=== PATIENT | male | born 1960 | race African-American/Black ===

== ENCOUNTER 2022-03-03 08:46 | Observation (INO) ==
--- NOTE | 2022-02-16 14:05 | History & Physical Report ---
Date of Service February 16, 2022 Assessment & Plan (1) Avascular necrosis of bone of right hip: Plan: PRE-OP Diagnosis: Right hip avascular necrosis Planned Procedure: Right total hip arthroplasty Plan: Patient is scheduled to undergo this procedure at the [facility] with a 23-hour observation admission with Dr. Carbone on February. Risks and complications of the procedure such as: Infection, bleeding, pain, scarring, nerve blood vessel damage, weakness, wound problems, stiffness, incomplete relief of symptoms, hardware failure, hardware loosening, wear, fracture, tendon or ligament injury, dislocation, leg length inequality, blood clots, Embolism, heart attack, stroke and were explained to the patient at her visit today. Informed consent to perform the procedure was obtained. Patient also understands risks of proceeding with surgical intervention during the COVID- pandemic. Currently the patient is asymptomatic. Patient will have his preoperative medical testing performed at the present which include; CBC with differential, complete metabolic panel, PT/INR, blood type and screen, urinalysis, urine culture and sensitivity, EKG, hemoglobin A1c and a nasal culture for MRSA. Patient will also need preoperative medical clearance from their primary care provider and trimmer and reinforcer. Patient states that he plans on doing therapy 2-3 times weekly at [facility]. They will make accommodations for therapists to come in for the recommended therapy. Patient will need a walker, raised toilet seat, shower chair and a hip kit and all of these items we have provided by the [facility]. During today's visit we reviewed the total hip packet as well as precautions. We discussed discharge planning from the hospital. I advised the patient that upon discharge from hospital we will prescribe a narcotic pain medication and anti-inflammatory. Patient will hold his Plavix for 5 days prior to the procedure and we will restarted on postoperative day 1. Patient will be scheduled for 2-week postoperative follow-up visit with myself on March 26 at 11:15 AM. At that visit we will Provide the patient with his rehab protocol. Patient verbalizes understanding of all information provided during today's visit. He thanks for the care that he received. If he has questions or concerns that should arise prior to his surgery, he will have medical staff at [facility] contact her clinic. This chart was completed utilizing [employer] voice recognition software. Grammatical errors, random word insertions, pronoun errors, and in complete sentences are an occasional consequence of the system. Any questions or concerns about the content, text, or information contained within the body of this dictation should be addressed directly to the physician for clarification. History of Present Illness Chief Complaint: Chief Complaint: Right hip pain Primary Care Provider: NO PCP History of Present Illness (including history relevant to procedure): This 61-year-old male inmate from [facility] presents the clinic today for his preoperative history and physical examination. Patient complains of a several year history of persistent right hip pain. Patient states that a few years ago he fell while getting out of the shower landing on his right hip. He managed this conservatively with the use of nonsteroidal agents, rest and nonweightbearing status for several weeks. Patient also states that he has had multiple surgeries on his left lower extremity from a previous injury and feels that this may be the root of his right hip issues because of compensation for the issues with his left leg. Patient denies any numbness or tingling in the right lower extremity but states that he has had a significant change in his ability to ambulate without the aid of a cane. He states that the pain wakes him up at night and seems to be worse on days when it either rains or snows. Review Of Systems: A 12 point review of systems is performed and is unremarkable except for those things stated in the HPI and past medical history. Past Medical History: Problems: Arteriosclerotic coronary artery disease Hypertension Asthma History of myocardial infarction History of coronary artery bypass graft GERD Procedure History Procedure Procedure Date Comments CABG Cardiac catheterization with stent placement Multiple surgeries on his left lower extremity Allergies and Sensitivities: Cozaar(Rash) Bactrim(Rash) Social history: Completely negative Family history: Diabetes and heart disease Current Home Meds: (Last Updated 10/15 13:58) acetaminophen (Tylenol) 500 mg PO acitretin (acitretin 10 mg oral capsule) albuterol (Albuterol (Eqv-ProAir HFA)) amLODIPine (Norvasc) 2.5 mg PO bromfenac ophthalmic (Prolensa 0.07% ophthalmic solution) ciclesonide (Alvesco HFA 80 mcg/inh inhalation aerosol) 1 puff inhaled bid clopidogrel (Plavix) 75 mg PO diclofenac topical (diclofenac 1% topical gel) 1 appl topical qid difluprednate ophthalmic (difluprednate 0.05% ophthalmic emulsion) famotidine (famotidine 20 mg oral tablet) 20 mg PO Daily gatifloxacin ophthalmic (gatifloxacin 0.5% ophthalmic solution) hydroCHLOROthiazide (HydroDIURIL) 12.5 mg PO hydroxychloroquine (Plaquenil) 200 mg PO isosorbide mononitrate (Imdur) 60 mg PO IMDUR (isosorbide mononitrate) is a SUSTAINED RELEASE tablet typically dosed daily. Do not confuse with ISORDIL (isosorbide dinitrate) commonly dosed three times daily. - Jo-Ann Rueda 10/20 09:48 lactulose metoprolol (metoprolol tartrate) 50 mg PO nitroglycerin 0.4 mg SL ranolazine (Ranexa) 500 mg PO rosuvastatin (Crestor) 40 mg PO tamSULOsin 0.4 mg PO Allergies Allergy/AdvReac Type Severity Reaction Status Date / Time losartan [From Cozaar] Allergy Unknown Verified 02/02/22 09:51 sulfamethoxazole Allergy Unknown Verified 02/02/22 09:51 [From Bactrim] trimethoprim [From Bactrim] Allergy Unknown Verified 02/02/22 09:51 red sauce AdvReac Unknown Uncoded 02/02/22 09:51 Home Medications Medication Instructions Recorded Confirmed Type acitretin 10 mg capsule 10 mg PO DAILY 03/21/18 02/02/22 History clopidogrel 75 mg tablet (Plavix) 75 mg PO QAM 03/21/18 02/02/22 History rosuvastatin 40 mg tablet 40 mg PO HS 03/21/18 02/02/22 History nitroglycerin 0.4 mg sublingual 0.4 mg sublingual Q5M PRN chest 12/10/18 02/02/22 History tablet pain ranolazine 500 mg tablet,extended 500 mg PO BID #60 tabs 12/10/18 02/02/22 History release,12 hr metoprolol tartrate 50 mg tablet 50 mg PO BID 12/20/18 02/02/22 History ciclesonide 80 mcg/actuation 1 puff inhalation BID 03/10/21 02/02/22 History aerosol inhaler (Alvesco) hydrochlorothiazide 12.5 mg tablet 12.5 mg PO DAILY 03/10/21 02/02/22 History tamsulosin 0.4 mg capsule (Flomax) 0.4 mg PO DAILY 03/10/21 02/02/22 History isosorbide mononitrate 30 mg 30 mg PO DAILY 06/03/21 02/02/22 History tablet,extended release 24 hr isosorbide mononitrate 60 mg 60 mg PO DAILY 06/03/21 02/02/22 History tablet,extended release 24 hr acetaminophen 500 mg tablet 500 mg PO TID PRN Pain 09/01/21 09/07/21 History albuterol sulfate 90 mcg/actuation 2 puff inhalation QID PRN 09/01/21 02/02/22 History aerosol inhaler Shortness Of Breath amlodipine 2.5 mg tablet 2.5 mg PO DAILY 09/01/21 02/02/22 History famotidine 20 mg tablet 20 mg PO BID 09/01/21 02/02/22 History bromfenac 0.07 % eye drops 1 drp ophthalmic (eye) DAILY 02/02/22 02/02/22 History (Prolensa) clobetasol 0.05 % topical foam 1 applic topical DAILY 02/02/22 02/02/22 History difluprednate 0.05 % eye drops 1 drp ophthalmic (eye) BID 02/02/22 02/02/22 History (Durezol) lactulose 10 gram/15 mL oral 15 ml PO BID 02/02/22 02/02/22 History solution tetrahydrozoline 0.05 % eye drops 1 drp ophthalmic (eye) BID 02/02/22 02/02/22 History (Visine) Past Med/Surg History Medical History Asthma CAD (coronary artery disease) valvular disease; moderate aortic insufficiency GERD (gastroesophageal reflux disease) Hx of glaucoma Hyperlipidemia Hypertension Inmate in [facility]al facility [facility] Lupus Myocardial Infarction Osteoarthritis Surgical History History of cardiac cath 08/19/2020 [place] [facility] no stents]\ History of coronary artery bypass graft 2002 History of heart artery stent 2002 X4 STENTS History of open reduction and internal fixation (ORIF) procedure LE History of right hip replacement Social History Smoking Status: Never smoker Second Hand Exposure: No; Hx Alcohol Use: No ([facility]) Hx Substance Use: No ([facility]) Preferred Language: Syrian Communication Ability: Effective Brick Handler Required: No Beliefs That Will Affect Care: None Current Living Situation: Other Current Living Situation Comment: [facility] Feels Safe at Home: Yes Assistive Devices: Glasses Review of Systems All systems reviewed & are unremarkable except as noted in Subjective Physical Exam Physical Exam: Physical Exam: (relevant to the procedure, including heart and lung evaluation) General: Alert and oriented x3 with proper grooming and hygiene Eyes: Pupils are equal react to light with accommodation. Extract movements are intact Throat: Deferred due to COVID-19 precautions Cardiac: Regular rate and rhythm with no murmurs or gallops appreciated Lungs: Clear to auscultation throughout with no wheezing, rales or rhonchi Abdomen: Mildly obese, nondistended, nontender with NABS Extremities: Right hip: Passive flexion is limited to about 92 degrees, external rotation to 25 degrees and internal rotation to -5 degrees. Straight leg raise test, logroll test and Stinchfield tests are all positive. Patient experiences tenderness to palpation in the groin area. He has referred pain in the area als o with passive AB and adduction of his lower extremity. He is neurovascular intact and walks with a significant antalgic gait Neuro: Cranial nerves II through XII are intact no motor or sensory deficit Skin: Normal appearance no open skin areas or discharge Results & Data ([facility]) Vital Signs (Past 12 Hours) Height: 170.5 cm weight: 91.4 kg blood pressure: 116/62 pulse: 70 temp: 97.2 degrees oxygen saturation: 98% Diagnostic Findings Studies (relevant to the procedure): x-rays done include AP pelvis false profile view and crosstable lateral of the right hip. These are compared with his prior films done back in April 2021. There is been no significant interval change. Continues to have collapse of the superior femoral head to mild injury with joint space narrowing and marginal osteophyte formation. MRI right hip: showed severe right hip osteoarthritis with osteonecrosis and a subchondral collapse of the superior right femoral head
--- NOTE | 2022-03-01 11:30 | Anesthesiology Consultation ---
Date of Service March 01, 2022 Assessment & Plan (1) Encounter for pre-operative examination: - COVID screening: Per assessment on 03/01: No known COVID-19 positive contacts or current COVID-19 related symptoms. Travel screen negative. Patient vaccinated. Inmate at [facility]. Preop Covid test 02/25 was negative. Will order Truong for AM DOS. Order placed. - Cardiology note (02/02/22): "His cardiac cath in August 2021 showed severe mary's igloo vessel CAD with patent HUGHES graft to LAD. Medical management was recommended at the time of the procedure. Most recent echo demonstrated preserved LV systolic function. Nuclear stress within the last year showed old inferior infarct with no significant reversible defects. He has chronic and stable angina with associated dyspnea. Given his known CAD with prior infarct noted on perfusion imaging, he is at at least a moderate risk for surgery. The surgical risk was discussed with him today. If patient and surgeon agree to proceed with hip arthroplasty, understanding the risks, would recommend close monitoring and avoidance of hypotension, hypertension, tachycardia, hypoxia, and significant anemia throughout the perioperative period to reduce myocardial oxygen demand and meet myocardial oxygen delivery. He can hold his Plavix for 5- 7 days prior to surgery, but he should take low dose aspirin while the Plavix is on hold due to his history of intracoronary stenting." Message sent to Gail at surgeon's office to inform surgeon of cardiology risk assessment/p erioperative recommendations. Chart Review Chart Review: Acceptable Risk for Surgery (pending evaluation AM DOS) and Patient NOT seen in Pre Admission Testing History Surgery Operation Date: 03/03/22 09:10 Proposed Procedures p Right Total Hip Arthroplasty - Philip Carbone MD Height/Weight Height: 5 ft 8 in Weight: 89.811 kg Allergies Allergy/AdvReac Type Severity Reaction Status Date / Time losartan [From Cozaar] Allergy Unknown Unknown Verified 02/25/22 12:55 sulfamethoxazole Allergy Unknown Unknown Verified 02/25/22 12:55 [From Bactrim] trimethoprim [From Bactrim] Allergy Unknown Unknown Verified 02/25/22 12:55 red sauce AdvReac Unknown Unknown Uncoded 02/25/22 12:55 Medications Home Medications Medication Instructions Recorded Confirmed Last Taken acitretin 10 mg capsule 10 mg PO QAM 03/21/18 02/25/22 09/06/21 clopidogrel 75 mg tablet (Plavix) 75 mg PO QAM 03/21/18 02/25/22 09/07/21 06:00 rosuvastatin 40 mg tablet 40 mg PO HS 03/21/18 02/25/22 09/06/21 nitroglycerin 0.4 mg sublingual 0.4 mg sublingual Q5M PRN chest 12/10/18 02/25/22 Unknown tablet pain ranolazine 500 mg tablet,extended 500 mg PO BID #60 tabs 12/10/18 02/25/22 09/06/21 release,12 hr metoprolol tartrate 50 mg tablet 50 mg PO BID 12/20/18 02/25/22 09/06/21 ciclesonide 80 mcg/actuation 1 puff inhalation BID 03/10/21 02/25/22 09/06/21 aerosol inhaler (Alvesco) hydrochlorothiazide 12.5 mg tablet 12.5 mg PO QAM 03/10/21 02/25/22 09/06/21 tamsulosin 0.4 mg capsule (Flomax) 0.4 mg PO QAM 03/10/21 02/25/22 09/06/21 isosorbide mononitrate 30 mg 30 mg PO QAM 06/03/21 02/25/22 09/06/21 tablet,extended release 24 hr isosorbide mononitrate 60 mg 60 mg PO QAM 06/03/21 02/25/22 09/06/21 tablet,extended release 24 hr albuterol sulfate 90 mcg/actuation 2 puff inhalation QID PRN 09/01/21 02/25/22 09/06/21 aerosol inhaler Shortness Of Breath amlodipine 2.5 mg tablet 2.5 mg PO QAM 09/01/21 02/25/22 09/06/21 bromfenac 0.07 % eye drops 1 drp ophthalmic (eye) DAILY 02/02/22 02/25/22 Unknown (Prolensa) clobetasol 0.05 % topical foam 1 applic topical DAILY 02/02/22 02/25/22 Unknown difluprednate 0.05 % eye drops 1 drp ophthalmic (eye) BID 02/02/22 02/25/22 Unknown (Durezol) lactulose 10 gram/15 mL oral 15 ml PO BID 02/02/22 02/25/22 Unknown solution tetrahydrozoline 0.05 % eye drops 1 drp ophthalmic (eye) BID 02/02/22 02/25/22 Unknown (Visine) acetaminophen 300 mg-codeine 30 mg 1 tab PO BID 02/25/22 02/25/22 Unknown tablet hydroxychloroquine 200 mg tablet 200 mg PO BID 02/25/22 02/25/22 Unknown Past Medical History Medical History Asthma CAD (coronary artery disease) Hx remote stents/CABG GERD (gastroesophageal reflux disease) Hx of glaucoma Hyperlipidemia Hypertension Inmate in correctional facility [facility] Lupus Myocardial Infarction multiple (2002/2004?/2010/2015) Per cardiology note: "first NV in 2002 while living in [place]. He cannot recall what hospital he went to. In 2004 to 2006 he had another myocardial infarction in [place] and underwent CABG x 2 and PCI x 2. In 2010 while being arrested, he had another myocardial infarction and went to [facility] and underwent PCI. In 2015 while incarcerated in [facility], he went to [facility] for another myocardial infarction and underwent PCI" Osteoarthritis Past Family History Family History Other Family history unknown Past Surgical History Surgical History History of bilateral cataract extraction History of cardiac cath Multiple, most recent [place]2021 ([place]) History of coronary artery bypass graft ~2004 History of heart artery stent 2002 x 4 STENTS History of open reduction and internal fixation (ORIF) procedure LE History of right hip replacement Social History Smoking Status: Unknown if ever smoked Do You Dip or Chew Tobacco: No Hx Alcohol Use: No (unknown, incarcerated at [facility]) Hx Substance Use: No (unknown, incarcerated at [facility]) substance use type: does not use Testing Laboratory Results 02/09/22 WBC 5.88 H/H 14.1/42.7 PLATELETS 103 (chronic hx of thrombocytopenia with baseline platelets low 100s) SODIUM 138 POTASSIUM 4.1 CHLORIDE 102 CO2 28 BUN 14 CREATININE 1.06 GLUCOSE 59 PT 11.6 INR 1.05 UA negative (urine culture no growth) Electrocardiogram Date: 02/12/22 Sinus bradycardia 57 bpm. Possible LAE. Nonspecific ST/T wave abnormality. unconfirmed report. Chest X-Ray Date: 02/09/22 No radiographic evidence of acute pulmonary disease. Cardiomegaly. Echocardiogram Date: 05/05/21 EF 60%. Impaired LV relaxation with normal filling pressures. Basal inferior wall appears akinetic. The inferior lateral wall may be abnormal, it is not optimally visualized. Calcified aortic valve with normal opening. Moderate AR. Mild TR. Mild pulmonary hypertension. Estimated PASP 40 mmHg. Stress Test Date: 03/05/21 SUMMARY: 1. Negative myocardial perfusion study for high-risk Lexiscan induced ischemia. 2. Inferior infarct with a small amount of radha-infarct ischemia (SDS 3). 3. Normal LV size. LVEF 38 % with inferior/inferoseptal hypokinesis. 4. Non-diagnostic stress ECG due to inability to reach target HR with Lexiscan. Cardiac Catheterization Date: 08/19/21 Findings:the left main coronary was normal in size and caliber without significant obstructive disease left anterior descending: Left anterior descending was known to be occluded in its ostium. It did not fill in an antegrade fashion. It did fill via the HUGHES graft. Distal to the HUGHES graft there was luminal irregularities but no obstr uctive lesions. The proximal portion of the LAD was heavily diseased. It produced a large 1st diagonal branch, a medium 2nd diagonal branch and a small 3rd diagonal branch prior to anastomosis of the HUGHES graft. There was a discrete 70 percent stenosis at the site of origin of the 2nd diagonal. There was additional nonobstructive disease in the proximal portion of this vessel. Left circumflex: Left circumflex filled in an antegrade fashion. There was a widely patent stent in its midportion just distal to om 1. there was a medium- sized OM1 with some nonobstructive ostial disease. There was a small OM 2 and a large OM3 and ongoing AV groove vessel. There were luminal regularities and some nonobstructive lesions in this portion of the vessel. right coronary artery: Known to be occluded. Not Engaged during today's study. hughes to LAD: Widely patent at its origin body and anastomosis. Somewhat tortuous in its course. *Medical management recommended per cardio*
[~2022-03-03 08:46] MED LIST: ACETAMINOPHEN 500 MG TAB PO SCH; BUPIVACAINE 0.5 % 5 MG/1 ML PF 10ML VIAL ONE; FAMOTIDINE 20 MG TAB PO SCH; LR 500ML BOLUS, THEN 15ML/HR IV SCH; LR 60ML/HR IV SCH; ROPIVACAINE 0.5% HCL/PF 150 MG, BUPIVACAINE 0.75% MPF 20 ML, EPINEPHrine 0.15 MG, Ketor... INFIL SCH; Scopolamine 1 MG TDSY TD SCH; TRANEXAMIC ACID 1,000 MG **IV Intra-op IV SCH; TRANEXAMIC ACID 1,000 MG **IV Pre-op IV SCH; ceFAZolin 2000MG 2,000 MG/15 ML SYR IV SCH; dexAMETHasone 4 MG TAB PO SCH; traMADol HCL 50 MG TABLET PO SCH
[2022-03-03] MEDS ORDERED: fentaNYL citrate 100 MCG/2 ML VIAL ONE (10:01)
[2022-03-03] MEDS ORDERED: PROPOFOL IV EMULSION 10 MG/ML 20 ML VIAL IV ONE ×2 (10:01→11:30)
[2022-03-03] MEDS ORDERED: MIDAZOLAM HCL 1 MG/ML 2ML VIAL ONE (10:01)
--- NOTE | 2022-03-03 10:27 | History & Physical Bridge Note ---
Date of Service March 03, 2022 History & Physical Bridge Note I have examined the patient, reviewed the History & Physical and in the interval since the performance of the History & Physical I have noted the following changes of clinical significance: no changes noted
[2022-03-03] MEDS ORDERED: ORTHO JOINT ANESTHETIC ONE (10:35)
[2022-03-03] MEDS ORDERED: fentaNYL citrate 100 MCG/2 ML VIAL IV PRN (10:53)
[2022-03-03] MEDS ORDERED: ATROPINE SULFATE 0.1 MG/ML 10ML SYR IV PRN (10:53)
[2022-03-03] MEDS ORDERED: ePHEDrine sulfate 50 MG/ML AMP IV PRN (10:53)
[2022-03-03] MEDS ORDERED: HYDROmorphone INJ 2 MG/ML SYR/VIAL IV PRN (10:53)
[2022-03-03] MEDS ORDERED: METOCLOPRAMIDE HCL INJ 5 MG/ML 2 ML VIAL IV PRN (12:37)
[2022-03-03] MEDS ORDERED: MAGNESIUM HYDROXIDE SUSP 30 ML UDC PO PRN (12:37)
[2022-03-03] MEDS ORDERED: TAMSULOSIN HCL 0.4 MG CAP PO PRN (12:37)
[2022-03-03] MEDS ORDERED: bisacodyL 10 MG SUPP PR PRN (12:37)
[2022-03-03] MEDS ORDERED: ALUMINUM/MAGNESIUM SUSP 30 ML UDC PO PRN (12:37)
[2022-03-03] MEDS ORDERED: ONDANSETRON INJ 2 MG/ML 2 ML VIAL IV PRN (12:37)
[2022-03-03] MEDS ORDERED: oxyCODONE HCL IR 5 MG TAB (IMMEDIATE RELEASE) PO PRN (12:37)
[2022-03-03] MEDS ORDERED: NALOXONE HCL 0.4 MG/1 ML VIAL/CARP IV PRN (12:37)
[2022-03-03] MEDS ORDERED: diphenhydrAMINE 50 MG/ML VIAL IV PRN (12:37)
--- NOTE | 2022-03-03 12:37 | Operative Report ---
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 No fellow present. Please see Dr. Carbone procedure note for specifics of the case. I attest to the content of the Intraoperative Record and any orders documented therein. Any exceptions are noted below.
[2022-03-03] MEDS ORDERED: NITROGLYCERIN SL 0.4 MG/TAB TAB SL PRN (12:41)
[2022-03-03] MEDS ORDERED: ALBUTEROL HFA 8 GM INHALER INH PRN (12:41)
--- NOTE | 2022-03-03 12:45 | Operative Report ---
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 No resident or fellow was available to assist. Estimated Blood Loss 150 Findings Consistent with Post-Op Diagnosis Specimens Right femoral head Anesthesia Type Spinal MAC Complications none Disposition Disposition: Recovery Room Indications 61-year-old male, inmate, with right hip pain refractory to conservative management. X-rays demonstrate [id number] arthritis with appearance of aseptic osteonecrosis of the femoral head. Clinically he is got shortening of his right leg relative to the left. I had a long discussion with him about the risks and benefits of surgery, alternatives, and expected outcomes. After reviewing all these he elected to proceed with surgery. All questions were answered. Informed consent was signed. Description of Procedure Patient was identified in the preoperative holding area and the surgical site, right hip, was marked. A spinal anesthetic was placed, then the patient was brought back to the main operating room, placed in the operating table and moved into the lateral decubitus position. Axillary roll was placed. All bony prominences were padded. Perioperative antibiotics and tranexamic acid 1 gram IV were administered. Operative extremity was prepped and draped in the normal sterile fashion. Prior to incision a multidisciplinary timeout was called. All in the room were in agreement. We began by making an incision for a posterior approach to the hip. We dissected down through subcutaneous tissues to the level of the fascia. The fascia was incised in line with the incision. Charnley bow was placed. The trochanteric bursa was excised. The piriformis and short external rotators were dissected off the posterior aspect of the hip. A box cut was made in the capsule. The femoral head was dislocated. The femoral neck cut was made at our preoperative template. The acetabulum was then exposed. The labrum was sharply excised. Contents of the cotyloid fossa were removed with electrocautery. We then began reaming at a size 8 mm less than our preoperative template. We reamed up by 1 [address] the way up to a size 56 mm cup. This gave us good bleeding cancellus bone circumferentially. The acetabulum was then irrigated out and dried. The real Powell Gription cup was then impacted down into position with 45 degrees of lateral opening and 25 degrees of anteversion. A single cancellous bone screw was placed up into the ilium. Excellent fixation was obtained. A trial liner for a 36 mm femoral head was then placed. Next we turned our attention to the femur. The lateral neck was removed with a box osteotome. Intramedullary guide was used followed by the lateralizing reamer. We then reamed up to a size 4 [place] stem. We then broached all the way up to a size 3. We began trialing with a standard offset neck and a +1.5 head. Hip was reduced. Leg lengths were symmetric. The hip was stable in extension and external rotation, and stable in the sleeper position. At 90 degrees of hip flexion the hip could be internally rotated 45 degrees before levering out of the cup. I was very happy with the stability exam. Therefore the hip was dislocated and the femoral trial was removed. The acetabulum was re-exposed, and the trial liner was removed. An Altrx polyethylene liner for a 36 mm femoral head was then impacted into the shell. The locking mechanism was checked to ensure that it had engaged which it had. The femur was re-exposed. The femoral canal was irrigated and dried. The real size 3 standard offset [place] femoral stem was opened up. This was impacted down into position. It sat at the same level as the femoral trial. Therefore the 36 mm ceramic femoral head with a +1.5 mm offset was opened up and gently impacted down onto the trunnion. The hip was atraumatically reduced. Another 1 gram of IV tranexamic acid was started prior to closure. The wound was irrigated out with sterile Betadine solution. The periarticular injection cocktail was then placed. The short external rotators, piriformis, and posterior capsule were repaired through drill holes in the greater trochanter using #2 Vicryl. The fascia was run with a looped #1 PDS. The subcutaneous layer was closed with #1 PDS. The dermal layer was closed with 2-0 Vicryl. Zip line was used for the skin followed by a Silverlon dressing. A compressive dressing was then placed. The patient was then rolled supine. Leg lengths were rechecked and were symmetric. An abduction pillow was placed. Sedation was lifted and the patient was transferred to recovery room in stable condition. Summary of implants: Depuy Powell Gription Acetabular Shell Sector Cup, 56 mm outer diameter [place] Cancellous bone screw, 6.5 x 40 mm [place] hole eliminator Powell Altrx Polyethylene Acetabular Liner, Neutral, with a 36 mm inner diameter DePuy [place] Femoral stem with [place], 12/14 taper, size 3 standard offset 36 mm ceramic femoral head with +1.5 offset Postoperative course: Patient will be admitted to the hospital from the recovery room. Patient will be weightbearing as tolerated with posterior hip precautions. Aspirin for DVT prophylaxis I attest to the content of the Intraoperative Record and any orders documented therein. Any exceptions are noted below.
--- NOTE | 2022-03-03 13:17 | Anesthesiology Progress Note ---
Date of Service March 03, 2022 Anesthesia Post Procedure Vital Signs Vital Signs: Temp Pulse Pulse Resp BP Pulse Ox O2 Del Method 03/03/22 13:05 36.1 C L 50 L 12 138/68 100 Oxymask 03/03/22 12:55 51 L 12 130/68 100 Oxymask 03/03/22 12:45 50 L 12 125/69 100 Oxymask 03/03/22 13:15 50 L 13 133/75 99 Room Air 03/03/22 12:36 36.4 C L 54 L 12 106/66 100 Oxymask 03/03/22 09:05 36.7 C 64 20 154/80 H 99 Room Air O2 Flow Rate 03/03/22 13:05 2 03/03/22 12:55 2 03/03/22 12:45 4 03/03/22 13:15 03/03/22 12:36 6 03/03/22 09:05 Transfer of Care Handoff Completed per policy Notes Mental Status: alert / awake / arousable and participated in evaluation Nausea / Vomiting: adequately controlled Pain: adequately controlled Airway Patency, RR, SpO2: stable & adequate BP & HR: stable & adequate Hydration State: stable & adequate Neuraxial Anesthesia: was administered and sensory block is resolving Anesthetic Complications: no major complications apparent and Pt Satisfied with anesthetic care
--- NOTE | 2022-03-03 13:29 | XRay Report ---
XR pelvis 1-2V routine CLINICAL HISTORY: In PACU - Post Surgical TECHNIQUE: A single frontal view of the pelvis was obtained. Comparison: Comparison is made to pelvis radiograph 02/15/2022 FINDINGS: Patient is status post total hip arthroplasty with expected postsurgical changes including soft tissu e swelling, and subcutaneous emphysema. No periarticular lucency or hardware fracture is seen. Degene rative changes are seen in the left hip joint and lumbar spine. Previously noted serpiginous appearin g density in the femoral head is less well seen on today's exam. IMPRESSION: Expected postoperative appearance status post placement of total hip arthroplasty. ACT 112: Negative or not required by law. Electronically signed by: Emanuel Reese M.D. 03/03/2022 1:28 PM
[2022-03-03] MEDS: SODIUM CHLORIDE 0.9% 1000ML 1,000 ML IV SCH ×2 (15:00→23:48)
[2022-03-03] MEDS: ACETAMINOPHEN 500 MG TAB PO SCH ×2 (15:04→21:29)
[2022-03-03] MEDS: KETOROLAC TROMETHAMINE 15 MG/ML VIAL IV SCH ×2 (15:08→19:53)
[2022-03-03] MEDS: [UNRECOGNIZED DRUG - OTHER] SCH ×2 (16:19→23:43)
[2022-03-03] MEDS: Scopolamine CHECK PATCH PLACEMENT SCH ×2 (16:20→23:48)
[2022-03-03] MEDS: ceFAZolin 2000MG 2,000 MG/15 ML SYR IV SCH (18:16)
[2022-03-03] MEDS ORDERED: TRANEXAMIC ACID / 0.7% NACL 1,000 MG/100 ML BAG IV SCH (18:45)
[2022-03-03] MEDS: HYDROXYCHLOROQUINE SULFATE 200 MG TAB PO SCH (20:26)
[2022-03-03] MEDS: RANOLAZINE 500 MG ER TAB PO SCH (20:26)
[2022-03-03] MEDS: LACTULOSE SYRUP 10 GM/15 ML BTL 960 ML PO SCH (20:27)
[2022-03-03] MEDS: DOCUSATE SODIUM 100 MG CAP PO SCH (20:27)
[2022-03-03] MEDS: METOPROLOL TARTRATE 50 MG TAB PO SCH (20:28)
[2022-03-03] MEDS ORDERED: SENNA 8.6 MG TAB PO SCH (21:00)
[2022-03-03] MEDS ORDERED: ROSUVASTATIN CALCIUM 20 MG TAB PO SCH (21:00)
[2022-03-03] MEDS ORDERED: ACETAMINOPHEN W/CODEINE #3 1 TAB PO SCH (21:00)
[2022-03-03] MEDS ORDERED: ARTIFICIAL TEARS OP SCH (21:00)
[2022-03-04] MEDS: KETOROLAC TROMETHAMINE 15 MG/ML VIAL IV SCH ×2 (02:17→08:15)
[2022-03-04] MEDS: ceFAZolin 2000MG 2,000 MG/15 ML SYR IV SCH (02:17)
[2022-03-04] MEDS: ACETAMINOPHEN 500 MG TAB PO SCH (05:41)
[2022-03-04 07:02] LABS: BUN Creatinine Ratio 16.8 (10-20); Calcium 8.4 mg/dl (8.5-10.1); Creatinine Clr Calc Pharmacy 83.6 ml/min; Est GFR (African American) 92.6 ml/min; Est GFR (Non-African American) 79.9 ml/min
[2022-03-04 07:13] LABS: Hematocrit (blood only) 38.7 % (40.1-51.0); Hemoglobin 13.5 g/dl (14.0-18.0); Mean Corpuscular Hgb Conc 34.9 g/dL (32.0-36.0); Mean Platelet Volume 11.5 fL (9.4-12.4); Platelet Count 80 K/uL (130-400); RDW Coefficient of Variation 14.5 % (11.5-14.5); RDW Standard Deviation 46.5 fL (36.4-46.3); Red Blood Count 4.35 M/uL (4.63-6.08); White Blood Count 10.04 K/ul (4.8-10.8)
[2022-03-04 07:26] LABS: Basophils # (auto) 0.01 K/uL (0-0.2); Basophils % (auto) 0.1 %; Immature Granulocytes # (auto) 0.02 K/uL (0.00-0.02); Immature Granulocytes % (auto) 0.2 %; Lymphocytes # (auto) 1.11 K/uL (1.2-3.4); Lymphocytes % (auto) 11.1 %; Monocytes # (auto) 0.55 K/uL (0.24-0.82); Monocytes % (auto) 5.5 %; Neutrophils # (auto) 8.35 K/uL (1.4-6.5); Neutrophils % (auto) 83.1 %; Platelet Estimate Decreased (Normal); Poikilocytosis Present; Toxic Granulation 1+; Toxic Vacuolation 1+
[2022-03-04] MEDS ORDERED: dexAMETHasone 4 MG TAB PO SCH (08:00)
[2022-03-04] MEDS: [UNRECOGNIZED DRUG - OTHER] SCH (08:11)
[2022-03-04] MEDS: METOPROLOL TARTRATE 50 MG TAB PO SCH (08:13)
[2022-03-04] MEDS: HYDROXYCHLOROQUINE SULFATE 200 MG TAB PO SCH (08:13)
[2022-03-04] MEDS: RANOLAZINE 500 MG ER TAB PO SCH (08:13)
[2022-03-04] MEDS: DOCUSATE SODIUM 100 MG CAP PO SCH (08:13)
[2022-03-04] MEDS: Scopolamine CHECK PATCH PLACEMENT SCH (08:23)
[2022-03-04] MEDS ORDERED: ISOSORBIDE MONO EXTENDED REL 60 MG TABCR PO SCH (09:00)
[2022-03-04] MEDS ORDERED: ISOSORBIDE MONO EXTENDED REL 30 MG TABCR PO SCH (09:00)
[2022-03-04] MEDS ORDERED: MULTIVITAMIN TAB PO SCH (09:00)
[2022-03-04] MEDS ORDERED: TAMSULOSIN HCL 0.4 MG CAP PO SCH (09:00)
[2022-03-04] MEDS ORDERED: CLOPIDOGREL BISULFATE 75 MG TAB PO SCH (09:00)
[2022-03-04] MEDS ORDERED: FLUTICASONE FUROATE 100MCG 14 PUFFS/INHALER INH SCH (09:00)
[2022-03-04] MEDS ORDERED: hydroCHLOROthiazide 25 MG TAB PO SCH (09:00)
[2022-03-04] MEDS ORDERED: amLODIPine BESYLATE 5 MG TAB PO SCH (09:00)
[2022-03-04] MEDS: LACTULOSE SYRUP 10 GM/15 ML BTL 960 ML PO SCH (09:08)
--- NOTE | 2022-03-04 10:21 | Orthopedic Progress Note ---
Date of Service March 04, 2022 Assessment & Plan (1) S/P total hip arthroplasty: Plan: Total hip precautions reviewed Weightbearing as tolerated with walker assistance PT/OT Ice with easy wrap Keep Silverlon dressing in place until follow-up Abduction pillow use for 6 weeks postoperatively Pain control with p.o. medication DVT prophylaxis with Plavix and IRMA stockings Plan is for possible discharge to [facility] for rehab due to in availability of [facility] Follow-up with [facility] orthopedics as previously scheduled With questions contact our clinic at [phone] Admission and Anticipated Discharge Date Admission Date: March 03, 2022 Subjective This 61-year-old inmate from [facility] is day 1 status post right total hip arthroplasty. Patient states he is doing very well. Patient's guardians are concerned about him being discharged back to the sn[facility] due to in availability of beds in the [facility] because of recent COVID outbreak. He states that in the past they have had inmates go to [facility] for rehab and they feel that this may be his best option. Patient states that he is open to this if necessary. He states in regards to his hip it is doing very well. He states his pain is very minimal and describes it as an ache. He denies chest pain, shortness of breath, fever, chills,, lethargy or numbness or tingling in his right lower extremity. Review of Systems Review of Systems: All systems reviewed & are unremarkable except as noted in Subjective Physical Exam Physical Exam: Right hip: Silverlon dressing is clean dry and intact. Patient is able to easily perform a straight leg raise test and actively dorsi and plantarflex foot. Quad strength is 3+ out of 5. Patient tolerates light passive hip flexion to 90 degrees and only has a twinge of pain with light passive internal or external rotation. Patient is neurovascularly intact in the right lower extremity. Results & Data ([facility]) Vital Signs (Past 12 Hours) Vital Signs Temp Pulse Resp BP Pulse Ox O2 Del Method 03/04/22 07:57 36.7 C 60 16 146/74 H 97 Room Air 03/04/22 03:30 36.6 C 59 L 18 156/78 H 95 Diagnostic Findings Laboratory Results WBC 10.04 K/ul (4.8-10.8) 03/04/22 06:22 RBC 4.35 M/uL (4.63-6.08) L 03/04/22 06: Hgb 13.5 g/dl (14.0-18.0) L 03/04/22 06: Hct 38.7 % (40.1-51.0) L 03/04/22 06: MCV 89.0 fL (80.0-100.0) 03/04/22 06: MCH 31.0 pg (25.0-34.0) 03/04/22 06: MCHC 34.9 g/dL (32.0-36.0) 03/04/22: RDW Std Deviation 46.5 fL (36.4-46.3) H 03/04/22: RDW Coeff of Ifeanyi 14.5 % (11.5-14.5) 03/04/22 06: Plt Count 80 K/uL (130-400) L 03/04/22: MPV 11.5 fL (9.4-12.4) 03/04/22 06: Immature Gran % (Auto) 0.2 % 03/04/22 06: Neut % (Auto) 83.1 % 03/04/22 06: Lymph % (Auto) 11.1 % 03/04/22: Ferry % (Auto) 5.5 % 03/04/22: Eos % (Auto) 0.0 % 03/04/22: Baso % (Auto) 0.1 % 03/04/22: Neut # (Auto) 8.35 K/uL (1.4-6.5) H 03/04/22: Lymph # (Auto) 1.11 K/uL (1.2-3.4) L 03/04/22: Ferry # (Auto) 0.55 K/uL (0.24-0.82) 03/04/22: Eos # (Auto) 0.00 K/uL (0-0.50) 03/04/22 06: Baso # (Auto) 0.01 K/uL (0-0.2) 03/04/22 06: Immature Gran # (Auto) 0.02 K/uL (0.00-0.02) 03/04/22 06:22 Toxic Granulation 1+ 03/04/22 06:22 Toxic Vacuolation 1+ 03/04/22 06:22 Platelet Estimate Decreased (Normal) L 03/04/22 06:22 Poikilocytosis Present 03/04/22 06:22 Sodium 137 mmol/L (136-145) 03/04/22 06:22 Potassium 4.0 mmol/L (3.5-5.1) 03/04/22 06:22 Chloride 109 mmol/L (98-107) H 03/04/22 06:22 Carbon Dioxide 24 mmol/L (21-32) 03/04/22 06:22 Anion Gap 4 (3-11) 03/04/22 06:22 BUN 17 mg/dl (6-23) 03/04/22 06:22 Creatinine 1.01 mg/dl (0.6-1.4) 03/04/22 06:22 Est Cr Clr Drug Dosing 83.6 ml/min 03/04/22 06:22 Est GFR ( Amer) 92.6 ml/min 03/04/22 06:22 Est GFR (Non-Af Amer) 79.9 ml/min 03/04/22 06:22 BUN/Creatinine Ratio 16.8 (10-20) 03/04/22 06:22 Glucose 124 mg/dl (70-99(Fasting)) H 03/04/22 06:22 Calcium 8.4 mg/dl (8.5-10.1) L 03/04/22 06:22 SARS-CoV-2, RNA, NAAT NEGATIVE (NEGATIVE) 03/03/22 Unknown Blood Type A Positive 03/03/22 09:03 Antibody Screen NEGATIVE 03/03/22 09:03 Impressions Pelvis X-Ray 03/03/22 12:37 XR pelvis 1-2V routine CLINICAL HISTORY: In PACU - Post Surgical TECHNIQUE: A single frontal view of the pelvis was obtained. Comparison: Comparison is made to pelvis radiograph 02/15/2022 FINDINGS: Patient is status post total hip arthroplasty with expected postsurgical changes including soft tissue swelling, and subcutaneous emphysema. No periarticular lucency or hardware fracture is seen. Degenerative changes are seen in the left hip joint and lumbar spine. Previously noted serpiginous appearing density in the femoral head is less well seen on today's exam. IMPRESSION: Expected postoperative appearance status post placement of total hip ar throplasty. ACT 112: Negative or not required by law. Electronically signed by: Emanuel Reees M.D. 03/03/2022 1:28 PM
--- NOTE | 2022-03-04 10:38 | Discharge Summary ---
Date of Service March 04, 2022 Admission HPI Per Admitting Provider History of Present Illness (including history relevant to procedure): This 61-year-old male inmate from [facility] presents the clinic today for his preoperative history and physical examination. Patient complains of a several year history of persistent right hip pain. Patient states that a few years ago he fell while getting out of the shower landing on his right hip. He managed this conservatively with the use of nonsteroidal agents, rest and nonweightbearing status for several weeks. Patient also states that he has had multiple surgeries on his left lower extremity from a previous injury and feels that this may be the root of his right hip issues because of compensation for the issues with his left leg. Patient denies any numbness or tingling in the right lower extremity but states that he has had a significant change in his ability to ambulate without the aid of a cane. He states that the pain wakes him up at night and seems to be worse on days when it either rains or snows. Review Of Systems: A 12 point review of systems is performed and is unremarkable except for those things stated in the HPI and past medical history. Past Medical History: Problems: Arteriosclerotic coronary artery disease Hypertension Asthma History of myocardial infarction History of coronary artery bypass graft GERD Procedure History Procedure Procedure Date Comments CABG Cardiac catheterization with stent placement Multiple surgeries on his left lower extremity Allergies and Sensitivities: Cozaar(Rash) Bactrim(Rash) Social history: Completely negative Family history: Diabetes and heart disease Current Home Meds: (Last Updated 10/15 13:58) acetaminophen (Tylenol) 500 mg PO acitretin (acitretin 10 mg oral capsule) albuterol (Albuterol (Eqv-ProAir HFA)) amLODIPine (Norvasc) 2.5 mg PO bromfenac ophthalmic (Prolensa 0.07% ophthalmic solution) ciclesonide (Alvesco HFA 80 mcg/inh inhalation aerosol) 1 puff inhaled bid clopidogrel (Plavix) 75 mg PO diclofenac topical (diclofenac 1% topical gel) 1 appl topical qid difluprednate ophthalmic (difluprednate 0.05% ophthalmic emulsion) famotidine (famotidine 20 mg oral tablet) 20 mg PO Daily gatifloxacin ophthalmic (gatifloxacin 0.5% ophthalmic solution) hydroCHLOROthiazide (HydroDIURIL) 12.5 mg PO hydroxychloroquine (Plaquenil) 200 mg PO isosorbide mononitrate (Imdur) 60 mg PO IMDUR (isosorbide mononitrate) is a SUSTAINED RELEASE tablet typically dosed daily. Do not confuse with ISORDIL (isosorbide dinitrate) commonly dosed three times daily. Christopher Rueda 10/20 09:48 lactulose metoprolol (metoprolol tartrate) 50 mg PO nitroglycerin 0.4 mg SL ranolazine (Ranexa) 500 mg PO rosuvastatin (Crestor) 40 mg PO tamSULOsin 0.4 mg PO Admission Exam Per Admitting Provider Physical Exam: (relevant to the procedure, including heart and lung evaluation) General: Alert and oriented x3 with proper grooming and hygiene Eyes: Pupils are equal react to light with accommodation. Extract movements are intact Throat: Deferred due to COVID-19 precautions Cardiac: Regular rate and rhythm with no murmurs or gallops appreciated Lungs: Clear to auscultation throughout with no wheezing, rales or rhonchi Abdomen: Mildly obese, nondistended, nontender with NABS Extremities: Right hip: Passive flexion is limited to about 92 degrees, external rotation to 25 degrees and internal rotation to -5 degrees. Straight leg raise test, logroll test and Stinchfield tests are all positive. Patient experiences tenderness to palpation in the groin area. He has referred pain in the area also with passive AB and adduction of his lower extremity. He is neurovascular intact and walks with a significant antalgic gait Neuro: Cranial nerves II through XII are intact no motor or sensory deficit Skin: Normal appearance no open skin areas or discharge Principal Diagnosis Right hip osteoarthritis Discharge Exam Right hip: Silverlon dressing is clean dry and intact. Patient is able to easily perform a straight leg raise test and actively dorsi and plantarflex foot. Quad strength is 3+ out of 5. Patient tolerates light passive hip flexion to 90 degrees and only has a twinge of pain with light passive internal or external rotation. Patient is neurovascularly intact in the right lower extremity. Discharge Data Allergies Allergy/AdvReac Type Severity Reaction Status Date / Time losartan [From Cozaar] Allergy Unknown Unknown Verified 03/03/22 09:13 sulfamethoxazole Allergy Unknown Unknown Verified 03/03/22 09:13 [From Bactrim] trimethoprim [From Bactrim] Allergy Unknown Unknown Verified 03/03/22 09:13 Procedures Performed Operation Date: 03/03/22 11:20 Actual Procedures p Right Total Hip Arthroplasty, Uncemented(Right) - Philip Carbone MD Hospital Course (1) S/P total hip arthroplasty: Patient had essentially unremarkable overnight stay following right total hip arthroplasty. Spoke with patient's guards in the state that the [facility] the half-way is filled with COVID patients. They are recommending that patients be discharged to [facility] for inpatient rehab for least 2 weeks. They states they have had inmates go there several times in the past with issue. Patient is agreeable to do this. He will follow-up in our clinic as scheduled for his 2-week postop visit. Total hip precautions reviewed Weightbearing as tolerated with walker assistance PT/OT Ice with easy wrap Keep Silverlon dressing in place until follow-up Abduction pillow use for 6 weeks postoperatively Pain control with p.o. 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 Activity: As commented below Lifting: None Bathing: Keep incision dry Bathing Comment: May shower tomorrow Sexual Activity: Wait until after follow-up appointment Exercise/Sports: Wait until after follow-up appointment Weightbearing: Right weightbearing Weightbearing Comment: as tolerated with walker assistance Non-emergency contact: Surgeon Call non-emergency contact if: you have any medication questions, your pain is not controlled, your temperature is above 101.5 and your wound pain has increased Follow-up/Referrals: Yared WYNN [Primary Care Provider] - Diet: Heart Healthy Addtl Attending Provider Instructions: Post-operative Instructions Dear Patient and Family/Friends, Before you are discharged from the hospital, it is important to know what to expect when you get home after surgery. To that end, we have created this sheet of discharge instructions which covers many commonly asked questions. Make sure you go through this sheet in its entirety with your nurse before you are discharged. Please note that we will go over the specifics of your surgery and recovery when you return for your first post-operative visit. Sincerely, Dr. Carbone Medications 1. Resume your daily Plavix for blood clot prevention 2. Oxycodone 5 mg tablet: Take 1-2 tabs every 4-6 hours as needed for pain. A prescription was sent for this medication. 3. Naproxen 500 mg tablet, take 1 tab twice daily for pain and inflammation relief for 30 days postoperatively. A prescription will be sent. 4. Extra strength Tylenol 500 mg tablet: Take 2 tabs every 6-8 hours for additional supplemental pain control. Pain Expect to be in a fair amount of pain after surgery. Remember, our goal is not to eliminate your pain, but to make it tolerable. It is a good idea to stay ahead of your pain by taking the medications you were prescribed once you get home. Typically, the pain starts improving 3-7 days after surgery. You should start weaning off the narcotic pain medication (oxycodone, hydrocodone, hydromorphone, morphine) as soon as your pain improves. Please call our office if your pain is not adequately controlled. Ice Ice your operative site at least 5 times a day for 15-30 minutes at a time. Make sure you have a thin cloth between the ice or cooling unit and your skin to prevent brown bite. This is especially important if you received a nerve block. Continue icing your operative site for the first 5-7 days after surgery, then as needed. Diet/Nausea/Vomiting Start by drinking clear liquids and eating crackers. If you can tolerate this, then you may resume your normal diet. If you feel nauseated or vomit, take Zofran/ondansetron (if prescribed). Please call our office if you have intractable nausea or vomiting, or, if after hours, you may go to the Emergency Room for help. Constipation Constipation is a common side effect of narcotic pain medication. If you have not had a bowel movement within 2 days after surgery, we recommend purchasing an over the counter laxative such as Milk of Magnesia, Dulcolax, or Miralax from a local pharmacy, and taking it as instructed. Call our clinic if any questions. Nerve block The anesthesia team sometimes places a nerve block to help with post-operative pain control. This results in significant numbness and inability to move the extremity. The nerve block usually wears off in 8-12 hours, but sometimes can last up to 24 hours. Please call our office if you are still unable to move your extremity after 24 hours, unless you received a pain pump to take home. Nerve blocks typically wear off quickly, so start taking pain medication as soon as you start feeling soreness near your surgical site. Weight bearing and Range of Motion. Do not bear any weight through your operative extremity immediately after surgery. If you had upper extremity surgery, do not lift anything with that arm. If you are in a knee brace, keep it locked in place until your follow-up. We will discuss your weight bearing, range of motion, and lifting restrictions in detail at your first post-operative appointment. Continuous Passive Motion (CPM) Machine If you were prescribed a CPM machine, it will start after your first post- operative appointment, at which time we will give you instructions on the range of motion settings and duration of treatment Physical therapy You will be given a prescription for physical therapy or occupational therapy at your first post-operative appointment. Typically, patients start therapy within 1 week of surgery Wound care and showering We will inspect your wound at your first post-operative visit, and may do a dressing change at that time. Most patients will be in a water-proof dressing that is removed 14 days after surgery. It is normal to see some dried blood on the dressing. Do not remove your dressing, paper strips or sutures yourself unless you are given permission. Showering is allowed the day after surgery. Do not scrub or remove any dressings. The wound should not be submerged underwater (i.e. in a bathtub or pool) until 4 weeks after surgery IRMA stockings If you were given white stockings, these are to be worn at all times except to shower (on both legs) for the first 2 weeks after surgery. Driving You may not drive while taking narcotic pain medication or while in a cast, splint, sling or brace. You, the patient, need to make the final determination about when you are safe to drive, however, the earliest you may consider driving after surgery is below: Hand/Wrist/Elbow Surgery: 3 days Shoulder Surgery: 2 weeks Hip,/Knee/Ankle Surgery: 4 weeks Fracture repair: 6 weeks Return to Work Your return to work depends on what surgery was done and what type of work you do. Please bring any paperwork your employer needs completed to your first post-operative visit. Also, bring a description of your job duties, as this helps us to understand what risks you may face at work. Travel Avoid long distance travel (greater than 1 hour) in airplanes and cars for the first 6 weeks after surgery. If you must travel, you need to have a Doppler ultrasound done before you travel to rule out a blood clot in your legs. Follow-up You should have a follow-up appointment already scheduled 1-2 days after surgery. If not, please contact our office to make this appointment before you leave the hospital. When to call the office It is normal to have swelling and bruising in the limb that was operated on. This will improve with time. It is also normal to have fevers for the first 2 days after surgery. Reasons you should call your doctor include: Uncontrolled pain; Nausea, vomiting, or constipation that does not improve with medication; Fevers over 101.5, chills, sweats; Drainage or bleeding from the wound; Foul odor; Spreading areas of redness; Any other concerns Pending Studies at Discharge: No Stand-Alone Forms: My [facility] Skilled Items Patient informed of condition?: Yes DNR: No Discharge Level of Care: Acute rehab Communicable Disease: No Discharge Prognosis: Improving Lines: None Urinary Catheter: No Medications and DC Order Prescriptions: New clopidogrel 75 mg Tablet 75 mg PO QAM 180 Days Qty: 180 0RF acetaminophen [Tylenol Extra Strength] 500 mg Tablet 1,000 mg PO Q8 30 Days Qty: 180 0RF oxycodone 5 mg Tablet 5 - 10 mg PO Q4H PRN (Reason: pain) Qty: 28 0RF naproxen 500 mg tablet 500 mg PO BID 30 Days Qty: 60 1RF Continued tetrahydrozoline [Visine] 0.05 % drops 1 drp ophthalmic (eye) BID difluprednate [Durezol] 0.05 % drops 1 drp ophthalmic (eye) BID Rx Instructions: start on Day 15 of therapy Prolensa 0.07 % drops 1 drp ophthalmic (eye) DAILY Rx Instructions: administer on day before procedure/surgery lactulose 10 gram/15 mL solution 15 ml PO BID clobetasol 0.05 % foam 1 applic topical DAILY ranolazine 500 mg tablet extended release 12 hr 500 mg PO BID Qty: 60 metoprolol tartrate 50 mg tablet 50 mg PO BID Label Comments: 50 mg PO ; acitretin 10 mg Capsule 10 mg PO QAM clopidogrel [Plavix] 75 mg Tablet 75 mg PO QAM rosuvastatin 40 mg Tablet 40 mg PO HS nitroglycerin 0.4 mg tablet, sublingual 0.4 mg sublingual Q5M PRN (Reason: chest pain) Label Comments: PLACE ONE TABLET UNDER TONGUE EVERY 5 MINUTES FOR UP TO 3 DOSES IF NEEDED FOR CHEST PAIN. tamsulosin [Flomax] 0.4 mg Capsule 0.4 mg PO QAM hydrochlorothiazide 12.5 mg Tablet 12.5 mg PO QAM Alvesco 80 mcg/actuation Hfa Aerosol Inhaler 1 puff INHALATION BID isosorbide mononitrate 30 mg Tablet Extended Release 24 Hr 30 mg PO QAM isosorbide mononitrate 60 mg Tablet Extended Release 24 Hr 60 mg PO QAM amlodipine 2.5 mg Tablet 2.5 mg PO QAM albuterol sulfate 90 mcg/actuation Hfa Aerosol Inhaler 2 puff INHALATION QID PRN (Reason: Shortness Of Breath) acetaminophen-codeine 300-30 mg Tablet 1 tab PO BID hydroxychloroquine 200 mg Tablet 200 mg PO BID Discharge Orders: Discharge Order (Routine); Ordered 03/04/22 Ordered By: Martin Clark Admission Data Admit Date/Time: 03/03/22 12:37 Attending Provider: Philip Carbone Admit Provider: Philip Carbone Primary Care Provider: Yared WYNN
== END 2022-03-04 12:47 ==
LOC: ASU 08:46 → 3E 08:46

== ENCOUNTER 2022-06-17 11:23 | Inpatient (IN) ==
[2022-06-17] MEDS ORDERED: Heparin IV Adult Wt-Based Low-Dose WITH Bolus Protocol IV STA (11:43)
[2022-06-17] MEDS ORDERED: SODIUM CHLORIDE 0.9% 500 ML IV ONE (11:43)
[2022-06-17] MEDS ORDERED: MoRPHine SULFATE 4 MG/ML 1 ML CARP\\VIAL IV STA (11:43)
[2022-06-17] MEDS ORDERED: HEPARIN SOD (PORCINE) 1000 UNIT/ML IV ONE ×2 (11:58→12:30)
[2022-06-17] MEDS ORDERED: Heparin IV Adult Wt-Based Low-Dose WITH Bolus Protocol IV SCH ×2 (12:00)
[2022-06-17] MEDS ORDERED: Patient's HEIGHT &/or WEIGHT Needed SCH (12:00)
[2022-06-17] MEDS ORDERED: HEPARIN SODIUM/DEXTROSE 25,000 UNITS/500 ML BAG IV SCH (12:00)
--- NOTE | 2022-06-17 12:11 | XRay Report ---
SINGLE VIEW CHEST CLINICAL HISTORY: Atypical chest pain FINDINGS: An AP, portable, upright chest radiograph is obtained. No prior studies are available for c omparison at the time of dictation. The examination is degraded by portable technique and apical lord otic positioning. The heart is enlarged. There is prominence of the pulmonary vasculature. There are low lung volumes. The lungs and pleural spaces are clear noting bibasilar atelectasis. No pneumothora x is seen. The bony thorax is grossly intact. Surgical clips are noted in the right chest wall. IMPRESSION: Cardiomegaly with prominence of the pulmonary vasculature. Correlate clinical history for evidence of fluid overload/mild congestive change. ACT 112: Negative or not required by law. Electronically signed by: Juancho Zepeda M.D. 06/17/2022 12:10 PM
--- NOTE | 2022-06-17 12:21 | Emergency Department Note ---
Impression & Plan ST elevation CO (STEMI), Coronary artery disease, Chest pain ED Provider Note NAME: MARILIN [id number] LULU AGE: 61 SEX: M : 1960 ARRIVES VIA: Ambulance INFORMANT: Patient ED PROVIDER(S): Estrada Rivas DO CHIEF COMPLAINT: chest pain HPI: Patient is a 61-year-old male who presents to the ER for chest pain. He noticed this around 3 AM this morning. History of CABG and multiple stents. He notes it feels like his previous MIs. Describes it as pressure in the middle of his chest/the right side as well. He does have some shortness of breath. Intermittent arm pain. No belly pain, nausea, vomiting, or diarrhea. No dysuria, urgency, or frequency. No other exacerbating remitting factors PAST MEDICAL HISTORY:See Below PAST SURGICAL HISTORY:See Below FAMILY HISTORY:See Below SOCIAL HISTORY:See Below HOME MEDICATIONS:See Below ALLERGIES:See Below VITALS:See Below PHYSICAL EXAMINATION: GENERAL: Sitting up in bed, alert, chronically ill-appearing, disheveled in mild distress EYE EXAM: normal conjunctiva. PERRL and EOM's grossly intact. OROPHARYNX: no exudate, no erythema, lips, buccal mucosa, and tongue normal and mucous membranes are moist NECK: supple, no nuchal rigidity, no adenopathy, non-tender LUNGS: Clear to auscultation. Normal chest wall mechanics HEART: no murmurs, S1 normal and S2 normal ABDOMEN: abdomen soft, non-tender, normo-active bowel sounds, no masses, no rebound or guarding. UPPER EXTREMITIES: upper extremities are grossly normal. LOWER EXTREMITIES: No pitting edema. NEURO EXAM: Normal sensorium, cranial nerves II-XII grossly intact, normal speech, no gross weakness of arms, no gross weakness of legs. MEDICAL DECISION MAKING: Patient is a 61-year-old male with a past medical history of a CABG and multiple stents that presents to the ER for precordial chest pain which feels like his previous CO. IV was established blood work was obtained. I received medical command call from EMS on regards to this and compared old EKG to today's via EMS. EKG showed no significant change. Did evaluate the patient upon arrival. Labs show no significant leukocytosis or anemia. BMP was unremarkable. Troponin was 300. Lipase was normal. Upon initial evaluation and comparing his EKG performed here it was slightly progressed from previous and consequently called interventionalists cardiology Dr. Kelly within 10 minutes of arrival. He did evaluate the patient at bedside. He recommended weight and for the repeat troponin and he will reevaluate. Prior to the result of the troponin but just before patient started having worsening pain which was radiating an EKG was repeated and shows progression and STEMI alert was called. Patient was taken emergently to the [facility]. Initially upon arrival patient was given a heparin bolus and placed on heparin drip as well. He was given morphine. He was already given aspirin prior to arrival. External records were reviewed Triage Nursing notes reviewed. Limited review of prior medical records performed Vital Signs: reviewed and remarkable for no significant abnormalities Differential diagnosis: Cardiac ischemia, aortic dissection, pulmonary embolism, pneumothorax, pneumonia, pericarditis, myocarditis, esophageal rupture, GERD, cholecystitis, pancreatitis, musculoskeletal, as well as other pathologies. ER treatment provided: See below Diagnostics interpreted by me include EKG and cardiac monitoring as listed below: -Cardiac Monitoring: An order was placed for continuous cardiac monitoring. The monitor shows a rate of 60 with sinus rhythm. -ECG: Sinus rhythm rate of 60 Normal axis Septal Q waves Mild ST segment elevation in the inferior leads EKG #2 Sinus rhythm rate of [address] segment elevations in the inferior leads with reciprocal depressions in the high lateral leads QTc 413 Progression in comparison to the previous -Laboratory studies:Interpreted by me as stated above in MDM and shown below. Imaging studies: Xrays: As interpreted by me: Portable AP upright 1 view of the chest shows no focal infiltrate per my read CTs show: none Consultation(s): Discussed with Dr. Kelly from interventional cardiology ev aluate the patient at bedside initially upon arrival recommended waiting for the repeat troponin. Prior to the repeat STEMI alert was called and patient was taken emergently to [facility]. Procedures:none Critical Care: I have personally spent 45 minutes of critical care time in the direct management of this patient. This includes bedside care, interpretation of diagnostic studies, and testing, discussion with consultants, patient, and family members, and other required patient management activities. This 45 minutes is in excess of all separately billable procedures. Past Med/Surg History Medical History Asthma CAD (coronary artery disease) Hx remote stents/CABG GERD (gastroesophageal reflux disease) Hx of glaucoma Hyperlipidemia Hypertension Inmate in correctional facility [facility] Lupus Myocardial Infarction multiple (2002/2004?/2010/2015) Per cardiology note: "first CO in 2002 while living in [place]. He cannot recall what hospital he went to. In 2004 to 2006 he had another myocardial infarction in [place] and underwent CABG x 2 and PCI x 2. In 2010 while being arrested, he had another myocardial infarction and went to [facility] and underwent PCI. In [address] [facility], he went to [facility] for another myocardial infarction and underwent PCI" Osteoarthritis Surgical History History of bilateral cataract extraction History of cardiac cath Multiple, most recent 08/2021 ([place]) History of coronary artery bypass graft ~2004 History of heart artery stent 2002 x 4 STENTS History of open reduction and internal fixation (ORIF) procedure LE History of right hip replacement Family History Other Family history unknown Social History Smoking Status: Unknown if ever smoked Second Hand Exposure: No; Hx Alcohol Use: No (unknown, incarcerated at [facility]) Hx Substance Use: No (unknown, incarcerated at [facility]) Preferred Language: Polish Communication Ability: Effective Director Education Required: No Beliefs That Will Affect Care: None Current Living Situation: Other Current Living Situation Comment: [facility] Feels Safe at Home: Yes Assistive Devices: Walker Allergies Allergies Allergy/AdvReac Type Severity Reaction Status Date / Time losartan [From Cozaar] Allergy Unknown Unknown Verified 03/03/22 09:13 sulfamethoxazole Allergy Unknown Unknown Verified 03/03/22 09:13 [From Bactrim] trimethoprim [From Bactrim] Allergy Unknown Unknown Verified 03/03/22 09:13 Home Meds Home Medications Medication Instructions Recorded Confirmed acitretin 10 mg capsule 10 mg PO QAM 03/21/18 03/03/22 clopidogrel 75 mg tablet (Plavix) 75 mg PO QAM 03/21/18 03/03/22 rosuvastatin 40 mg tablet 40 mg PO HS 03/21/18 03/03/22 nitroglycerin 0.4 mg sublingual 0.4 mg sublingual Q5M PRN chest 12/10/18 03/03/22 tablet pain ranolazine 500 mg tablet,extended 500 mg PO BID #60 tabs 12/10/18 03/03/22 release,12 hr metoprolol tartrate 50 mg tablet 50 mg PO BID 12/20/18 03/03/22 ciclesonide 80 mcg/actuation 1 puff inhalation BID 03/10/21 03/03/22 aerosol inhaler (Alvesco) hydrochlorothiazide 12.5 mg tablet 12.5 mg PO QAM 03/10/21 03/03/22 tamsulosin 0.4 mg capsule (Flomax) 0.4 mg PO QAM 03/10/21 03/03/22 isosorbide mononitrate 30 mg 30 mg PO QAM 06/03/21 03/03/22 tablet,extended release 24 hr isosorbide mononitrate 60 mg 60 mg PO QAM 06/03/21 03/03/22 tablet,extended release 24 hr albuterol sulfate 90 mcg/actuation 2 puff inhalation QID PRN 09/01/21 03/03/22 aerosol inhaler Shortness Of Breath amlodipine 2.5 mg tablet 2.5 mg PO QAM 09/01/21 03/03/22 bromfenac 0.07 % eye drops 1 drp ophthalmic (eye) DAILY 02/02/22 03/03/22 (Prolensa) clobetasol 0.05 % topical foam 1 applic topical DAILY 02/02/22 03/03/22 difluprednate 0.05 % eye drops 1 drp ophthalmic (eye) BID 02/02/22 03/03/22 (Durezol) lactulose 10 gram/15 mL oral 15 ml PO BID 02/02/22 03/03/22 solution tetrahydrozoline 0.05 % eye drops 1 drp ophthalmic (eye) BID 02/02/22 03/03/22 (Visine) acetaminophen 300 mg-codeine 30 mg 1 tab PO BID 02/25/22 03/03/22 tablet hydroxychloroquine 200 mg tablet 200 mg PO BID 02/25/22 03/03/22 Previous Rx's Medication Instructions Recorded clopidogrel 75 mg tablet 75 mg PO QAM Previously on this 03/04/22 med for cardiac hist 6 months #180 tabs naproxen 500 mg tablet 500 mg PO BID post op pain and 03/04/22 inflammation relief 30 days #60 tabs oxycodone 5 mg tablet 5 - 10 mg PO Q4H PRN pain #28 tabs 03/04/22 Results & Data (ED) Vital Signs Vital Signs - 24 hr 06/17/22 11:10 06/17/22 11:10 06/17/22 11:31 Temperature 36.9 C Temperature Source Oral Pulse Rate 58 L Respiratory Rate 14 Blood Pressure 134/85 Blood Pressure Mean 101 Pulse Oximetry 100 Oxygen Delivery Method Room Air Room Air Sepsis Recent Fever Within 48 Hours No Sepsis New/Unexplained Change in Mental Status No Sepsis Action Taken by Nursing No Action Required Laboratory Data 06/17/22 11:43 06/17/22 11:43 Lab Results 06/17/22 06/17/22 06/17/22 Range/Units 11:43 11:43 11:43 WBC 5.29 (4.8-10.8) K/ul RBC 4.73 (4.70-6.10) M/uL Hgb 14.9 (14.0-18.0) g/dl Hct 42.8 (42.0-52.0) % MCV 90.5 (80.0-100.0) fL MCH 31.5 (25.0-34.0) pg MCHC 34.8 (32.0-36.0) g/dL RDW Std Deviation 48.2 H (36.4-46.3) fL RDW Coeff of Ifeanyi 14.5 (11.5-14.5) % Plt Count 91 L (130-400) K/uL MPV 11.7 (9.4-12.4) fL Immature Gran % (Auto) 0.2 % Neut % (Auto) 39.8 % Lymph % (Auto) 45.2 % Nicholas % (Auto) 12.9 % Eos % (Auto) 1.1 % Baso % (Auto) 0.8 % Neut # (Auto) 2.11 (1.40-6.50) K/uL Lymph # (Auto) 2.39 (1.2-3.4) K/uL Nicholas # (Auto) 0.68 H (0.11-0.59) K/uL Eos # (Auto) 0.06 (0-0.50) K/uL Baso # (Auto) 0.04 (0-0.2) K/uL Immature Gran # (Auto) 0.01 (0.01-0.20) K/uL APTT 24.5 (21.0-31.0) Seconds PTT Ratio 0.9 Activ Coag Time Kaolin (94-140) SECONDS Sodium 137 (136-145) mmol/L Potassium 4.2 (3.5-5.1) mmol/L Chloride 103 (98-107) mmol/L Carbon Dioxide 31 (21-32) mmol/L Anion Gap 3 (3-11) BUN 10 (6-23) mg/dl Creatinine 0.93 (0.6-1.4) mg/dl Est Cr Clr Drug Dosing 90.0 ml/min Est GFR ( Amer) 102.3 ml/min Est GFR (Non-Af Amer) 88.3 ml/min BUN/Creatinine Ratio 10.8 (10-20) Glucose 85 (70-99(Fasting)) mg/dl Calcium 9.8 (8.5-10.1) mg/dl Total Bilirubin 0.6 (0.2-1.0) mg/dl AST 20 (13-39) U/L ALT 12 (7-52) U/L Alkaline Phosphatase 44 (34-104) U/L Troponin I High Sens 301.3 H* (0-20) pg/ml Total Protein 7.7 (6.0-8.3) gm/dl Albumin 4.2 (3.4-5.0) gm/dl Globulin 3.5 (2.5-4.0) gm/dl Albumin/Globulin Ratio 1.2 (0.9-2) Lipase 41 (11-82) U/L 06/17/22 06/17/22 Range/Units 13:14 13:33 WBC (4.8-10.8) K/ul RBC (4.70-6.10) M/uL Hgb (14.0-18.0) g/dl Hct (42.0-52.0) % MCV (80.0-100.0) fL MCH (25.0-34.0) pg MCHC (32.0-36.0) g/dL RDW Std Deviation (36.4-46.3) fL RDW Coeff of Ifeanyi (11.5-14.5) % Plt Count (130-400) K/uL MPV (9.4-12.4) fL Immature Gran % (Auto) % Neut % (Auto) % Lymph % (Auto) % Nicholas % (Auto) % Eos % (Auto) % Baso % (Auto) % Neut # (Auto) (1.40-6.50) K/uL Lymph # (Auto) (1.2-3.4) K/uL Nicholas # (Auto) (0.11-0.59) K/uL Eos # (Auto) (0-0.50) K/uL Baso # (Auto) (0-0.2) K/uL Immature Gran # (Auto) (0.01-0.20) K/uL APTT (21.0-31.0) Seconds PTT Ratio Activ Coag Time Kaolin 209 H 251 H (94-140) SECONDS Sodium (136-145) mmol/L Potassium (3.5-5.1) mmol/L Chloride (98-107) mmol/L Carbon Dioxide (21-32) mmol/L Anion Gap (3-11) BUN (6-23) mg/dl Creatinine (0.6-1.4) mg/dl Est Cr Clr Drug Dosing ml/min Est GFR ( Amer) ml/min Est GFR (Non-Af Amer) ml/min BUN/Creatinine Ratio (10-20) Glucose (70-99(Fasting)) mg/dl Calcium (8.5-10.1) mg/dl Total Bilirubin (0.2-1.0) mg/dl AST (13-39) U/L ALT (7-52) U/L Alkaline Phosphatase (34-104) U/L Troponin I High Sens (0-20) pg/ml Total Protein (6.0-8.3) gm/dl Albumin (3.4-5.0) gm/dl Globulin (2.5-4.0) gm/dl Albumin/Globulin Ratio (0.9-2) Lipase (11-82) U/L Administered Medications Heparin Sodium/Dextrose (Heparin Sodium/Dextrose) 25,000 units in 500 mls @ 0 mls/hr IV .Q0M [facility]; Protocol Stop: 07/17/22 11:59 Last Titration: 06/17/22 13:54 Dose: 0 units/hr, 0 mls/hr Documented By: RAINA Co-signed By: MARKOS Admin: 06/17/22 12:29 Dose: 900 units/hr, 18 mls/hr Documented By: MATTHEW Co-signed By: ALEXANDER Discontinued Medications Amiodarone HCl/Dextrose (Amiodarone 360mg / 200ml D5w ([facility] Use Only)) Confirm Administered Dose 360 mg IV .STK-MED ONE Stop: 06/17/22 13:30 Last Admin: 06/17/22 13:48 Dose: Not Given Documented By: RAINA Amiodarone HCl (Amiodarone Hcl Inj 50 Mg/Ml 3 Ml Vial (Disaster Recovery Consultant Use Only)) Confirm Administered Dose 300 mg IV .STK-MED ONE Stop: 06/17/22 13:24 Last Admin: 06/17/22 13:47 Dose: 300 mg Documented By: RAINA Fentanyl Citrate (Fentanyl Citrate 100 Mcg/2 Ml Vial) Confirm Administered Dose 100 mcg .ROUTE .STK-MED ONE Stop: 06/17/22 12:47 Last Admin: 06/17/22 13:52 Dose: 50 mcg Documented By: RAINA Heparin Sodium (Porcine) (Heparin Sod (Porcine) 1000 Unit/Ml) 1 units IV NOW ONE Stop: 06/17/22 11:59 Last Admin: 06/17/22 12:28 Dose: Not Given Documented By: MATTHEW Heparin Sodium (Porcine) (Heparin (Porcine) 1000 Unit/Ml 10 Ml (Disaster Recovery Consultant Use Only)) Confirm Administered Dose 10,000 units .ROUTE .STK-MED ONE Stop: 06/17/22 12:46 Last Admin: 06/17/22 13:46 Dose: 2,000 units Documented By: RAINA Heparin Sodium/Sodium Chloride (Heparin In Nss Infusion 1000 Unit/500 Ml (2 U/Ml) Bag) Confirm Administered Dose 1,000 units IV .STK-MED ONE Stop: 06/17/22 12:47 Last Admin: 06/17/22 13:46 Dose: 1,000 units Documented By: SHANE Sodium Chloride (Nss) 500 mls @ 999 mls/hr IV .Q31M ONE Stop: 06/17/22 12:13 Last Admin: 06/17/22 11:50 Dose: 999 mls/hr Documented By: MATTHEW Lidocaine HCl (Lidocaine 1% Local 20 Ml Vial) Confirm Administered Dose 1 ml .ROUTE .STK-MED ONE Stop: 06/17/22 12:50 Last Admin: 06/17/22 13:47 Dose: 1 ml Documented By: SHANE Midazolam HCl (Midazolam Hcl 1 Mg/Ml 2ml Vial) Confirm Administered Dose 2 mg .ROUTE .STK-MED ONE Stop: 06/17/22 12:47 Last Admin: 06/17/22 13:53 Dose: 1 mg Documented By: RAINA Miscellaneous (Patient's Height &/Or Weight Needed) 1 each N/A Q2H FERMIN Stop: 07/17/22 11:59 Last Admin: 06/17/22 12:00 Dose: 1 each Documented By: ALEXANDER Morphine Sulfate (Morphine Sulfate 4 Mg/Ml 1 Ml Carp\\Vial) 4 mg IV NOW STA Stop: 06/17/22 11:44 Last Admin: 06/17/22 11:50 Dose: 4 mg Documented By: MATTHEW Nicardipine HCl (Nicardipine Hcl Inj 2.5 Mg/Ml 10 Ml Amp) Confirm Administered Dose 25 mg .ROUTE .STK-MED ONE Stop: 06/17/22 12:46 Last Admin: 06/17/22 13:46 Dose: 25 mg Documented By: SHANE Nitroglycerin/Dextrose (Nitroglycerin/D5w 100mcg/Ml 20ml Syr) Confirm Administered Dose 2,000 mcg .ROUTE .STK-MED ONE Stop: 06/17/22 12:47 Last Admin: 06/17/22 13:47 Dose: 2,000 mcg Documented By: SHANE Imaging Data Radiologist's Impression: Chest X-Ray 06/17/22 11:31 SINGLE VIEW CHEST CLINICAL HISTORY: Atypical chest pain FINDINGS: An AP, portable, upright chest radiograph is obtained. No prior studies are available for comparison at the time of dictation. The examination is degraded by portable technique and apical lordotic positioning. The heart is enlarged. There is prominence of the pulmonary vasculature. There are low lung volumes. The lungs and pleural spaces are clear noting bibasilar atelectasis. No pneumothorax is seen. The bony thorax is grossly intact. Surgical clips are noted in the right chest wall. IMPRESSION: Cardiomegaly with prominence of the pulmonary vasculature. Correlate clinical history for evidence of fluid overload/mild congestive change. ACT 112: Negative or not required by law. Electronically signed by: Juancho Zepeda M.D. 06/17/2022 12:10 PM Discharge Plan Visit Data Chief Complaint: Chest Pain Stated Complaint: chest pain ED Provider: Estrada Rivas Discharge Problem: ST elevation CO (STEMI), Coronary artery disease, Chest pain
[2022-06-17 12:28] LABS: Albumin Globulin Ratio 1.2 (0.9-2); Albumin Level 4.2 gm/dl (3.4-5.0); BUN Creatinine Ratio 10.8 (10-20); Bilirubin,Total 0.6 mg/dl (0.2-1.0); Calcium 9.8 mg/dl (8.5-10.1); Est GFR (African American) 102.3 ml/min; Est GFR (Non-African American) 88.3 ml/min; Globulin 3.5 gm/dl (2.5-4.0); Potassium 4.2 mmol/L (3.5-5.1); Total Protein 7.7 gm/dl (6.0-8.3)
[2022-06-17 12:39] LABS: Hematocrit (blood only) 42.8 % (42.0-52.0); Hemoglobin 14.9 g/dl (14.0-18.0); Mean Corpuscular Hemoglobin 31.5 pg (25.0-34.0); Mean Corpuscular Hgb Conc 34.8 g/dL (32.0-36.0); Mean Corpuscular Volume 90.5 fL (80.0-100.0); Mean Platelet Volume 11.7 fL (9.4-12.4); Platelet Count 91 K/uL (130-400); RDW Coefficient of Variation 14.5 % (11.5-14.5); RDW Standard Deviation 48.2 fL (36.4-46.3); Red Blood Count 4.73 M/uL (4.70-6.10); White Blood Count 5.29 K/ul (4.8-10.8)
[2022-06-17 12:43] LABS: Troponin I High Sensitivity 301.3 pg/ml (0-20)
[2022-06-17] MEDS ORDERED: niCARdipine HCL INJ 2.5 MG/ML 10 ML AMP ONE (12:45)
[2022-06-17] MEDS ORDERED: HEPARIN (PORCINE) 1000 UNIT/ML 10 ML (CATH LAB USE ONLY) ONE (12:45)
[2022-06-17] MEDS ORDERED: fentaNYL citrate 100 MCG/2 ML VIAL ONE (12:46)
[2022-06-17] MEDS ORDERED: MIDAZOLAM HCL 1 MG/ML 2ML VIAL ONE (12:46)
[2022-06-17] MEDS ORDERED: NITROGLYCERIN/D5W 100MCG/ML 20ML SYR ONE (12:46)
[2022-06-17] MEDS ORDERED: LIDOCAINE 1% LOCAL 20 ML VIAL ONE (12:49)
[2022-06-17] MEDS ORDERED: AMIODARONE HCL INJ 50 MG/ML 3 ML VIAL (CATH LAB USE ONLY) IV ONE (13:23)
[2022-06-17] MEDS ORDERED: AMIODARONE 360MG / 200ML D5W (CATH LAB USE ONLY) IV ONE (13:29)
[2022-06-17 13:33] LABS: Partial Thromboplastin Ratio 0.9; Partial Thromboplastin Time 24.5 Seconds (21.0-31.0)
[2022-06-17 13:41] LABS: Basophils # (auto) 0.04 K/uL (0-0.2); Basophils % (auto) 0.8 %; Eosinophils # (auto) 0.06 K/uL (0-0.50); Eosinophils % (auto) 1.1 %; Immature Granulocytes # (auto) 0.01 K/uL (0.01-0.20); Immature Granulocytes % (auto) 0.2 %; Lymphocytes # (auto) 2.39 K/uL (1.2-3.4); Lymphocytes % (auto) 45.2 %; Monocytes # (auto) 0.68 K/uL (0.11-0.59); Monocytes % (auto) 12.9 %; Neutrophils # (auto) 2.11 K/uL (1.40-6.50); Neutrophils % (auto) 39.8 %
[2022-06-17] MEDS ORDERED: NITROGLYCERIN SL 0.4 MG/TAB TAB SL PRN (13:57)
[2022-06-17] MEDS ORDERED: ATROPINE SULFATE 0.1 MG/ML 10ML SYR IV PRN (13:57)
[2022-06-17] MEDS ORDERED: ONDANSETRON INJ 2 MG/ML 2 ML VIAL IV PRN (13:57)
--- NOTE | 2022-06-17 14:14 | Pre Anesthesia Assessment ---
Date of Service June 17, 2022 Pre Sedation Assessment Vital Signs Temp Pulse Resp BP Pulse Ox O2 Del Method 06/17/22 11:31 Room Air 06/17/22 11:10 Room Air 06/17/22 11:10 36.9 C 58 L 14 134/85 100 Cardiovascular RRR, no murmur, no edema Respiratory normal respiratory effort, lungs clear to auscultation (Mild shortness of breath) Pre-Sedation Airway Assessment Smoking Status: Unknown if ever smoked Hx Sleep Apnea: No Hx Difficult Intubation: No Short, Thick Neck: Yes Mallampati 3 ASA for Notes The planned sedation has been discussed with the patient. Informed Consent was obtained. I have identified the patient, determined the appropriateness of sedation and have assessed the patient immediately prior to the procedure. All medicine(s) and interventions are by my order.
--- NOTE | 2022-06-17 14:15 | Post Anesthesia Assessment ---
Date of Service June 17, 2022 Post Sedation Assessment Vital Signs Temp Pulse Resp BP Pulse Ox O2 Del Method 06/17/22 11:31 Room Air 06/17/22 11:10 Room Air 06/17/22 11:10 36.9 C 58 L 14 134/85 100 Recovery Score Activity: Moves 4 extremities Respiration: Deep Breath/Cough Circulation: +/-20% PreAnes Value Consciousness: Fully Awake Oxygen Saturation: > 92% On Room Air Discharge Sedation Level of Care: Phase I Post Sedation Plan On clinical assessment, the patient appears to have tolerated the sedation without complications. Patient is recovering as anticipated. Patient will continue to be monitored by nursing and may be discharged when sedation discharge criteria are met per below protocol. Upon Completions of procedure up to 15 minutes continue every 5 minute vital signs and the P.A.R. score; then discharge to a Phase I or Fast Track to Phase II per the following guidelines: * Discharge Patient to appropriate Phase II area if PAR is 8 or greater or return to pre- procedure baseline. The post - procedure orders will be as directed. * If PAR score is less than 8 or not return to pre-procedure baseline then patient will follow Phase I monitoring till PAR is reached for Phase II. The Phase I may be done in procedure room or may call to secure a Phase I area. * If naloxone or flumazenil are used for reversal, hold in Phase I for continued monitoring from when last reversal dose was given for a minimum of 60 minutes or longer pending the nurse and/or physician discretion of patient condition before discharge to Phase II. Please call the Sedation Physician to re-evaluate and complete post-note for discharge to Phase II area. Do NOT discharge from procedure sedation or Phase 1 until post- sedation evaluation note is complete by procedure /sedation MD Sedation Discharge Instructions to be given to the patient at discharge to home. [facility] Procedure Codes (Charges) Indication for Procedure Indication for procedure: Acute MS Sedation/Anesthesia Procedure 1: Sedation/Anesthesia: 86550 Mod Sedation by the same physician;Init15 Min Child Age 5 & Up (Initial 15 minutes) Total Sedation Time (minutes): 46 Procedure 2: Sedation/Anesthesia: 46334 Mod Sedation by the same physician; Ea [id number] Minutes (Additional 31 minutes) Total Sedation Time (minutes): 46
--- NOTE | 2022-06-17 14:36 | Cardiac Catheterization ---
ACC Data: Assisted Living Care Manager Cardiac Status Clinical evaluation leading to the procedure CAD Presenation: STEMI Anginal Classification: CCS IV Heart Failure: No Cardiogenic Shock within 24 Hours: No Cardiac Arrest within 24 Hours: No Imaging Studies Past 6 Months: No Stress Studies Past 6 Months: No STEMI OR Non-STEMI Symptom Onset Date: 06/17/22 Symptom Onset Time: 09:00 Thrombolytics: No Coronary Anatomy Left Main (% Stenosis): Normal LAD (% Stenosis): Ostial (100% chronic total occlusion previously known) Circumflex (% Stenosis): Proximal (Stent patent), Mid (Stent patent) and Distal (Stent 100% occluded, thrombotic.) OM1 (% Stenosis): Normal (Very small caliber) OM2 (% Stenosis): Normal (Medium to large caliber, diffuse mild disease less than 30% stenosis) RCA (% Stenosis): Ostial (100% chronic total occlusion previously known) Grafts - LAD (%): Normal (Large-caliber widely patent HUGHES to LAD. Distal anastomosis on the distal vessel. [place] transapical with mild plaque antegrade, retrograde mild disease until mid segment where up to 99% disease.) Diagnostic Physicians Name: Carlos Kelly MD, PhD Closure Device Percutaneous Entry Location: Femoral Closure Device: Angio-Seal Recommendations: PCI without planned CABG PCI Indication: PCI for STEMI - Stable First Noted: Subsequent EKG Lesion Segment Name: Mid circumflex Culprit Artery: Yes Stenosis Prior to Rx (%): 100% Chronic Total Occlusion: No Pre-Procedure KARLA Flow: 0 Previously Treated Lesion: Yes Lesion Complexity: Non-High/Non-C Lesion Length (mm): 12 Thrombus Present: Yes Bifurcation Lesion: No Guidewire Across Lesion: Yes Intraprocedure Events Significant Disection: No Perforation: No Cardiac Cath Procedure Full Procedure Date June 17, 2022 Pre-Procedure Diagnosis Pre-Procedure Diagnosis: STEMI AUC Score AUC Score: 9 Post-Procedure Diagnosis Post-Procedure Diagnosis: Severe CAD Procedure(s) Performed Procedure(s) Performed: Coronary Angiography, Drug Eluting Stent, Ultrasound Guided Vascular Access and Bypass Graft Angiography Decal Cutter Carlos Kelly MD, PhD Estimated Blood Loss Estimated Blood Loss: <10 ml Medication(s) Medication(s): Fentanyl, Heparin, Lidocaine 1% and Versed Summary of Findings Brief description: Patient was brought urgently to the cardiac catheterization suite where he was shaved and prepped in a sterile fashion. Sedated using IV Versed and fentanyl. Soft tissues the right groin were anesthetized using 10 mL of 1% Xylocaine. Using the ultrasound for guidance (image saved) the right femoral artery was accessed and a 6 [place] femoral artery sheath was placed. All catheters were a dvanced and exchanged over a 0.035 J-tip wire. Left coronary angiography was performed in orthogonal views with a 6 [place] EBU 4.0 guide catheter. ACT was then checked and additional IV heparin provided as needed to maintain therapeutic ACT. We proceeded immediately with PCI. A BMW reversal guidewire was advanced through the guide catheter and under fluoroscopic guidance was positioned distally in the circumflex. A 2.0 x 12 mm PTCA balloon was then advanced and positioned across the lesion. The lesion was predilated up to 14 sudhakar. The balloon was then removed. Patient developed AIVR which was persistent and which he was not tolerating. Therefore, a 300 mg bolus of IV amiodarone was provided. He returned to sinus rhythm and his symptoms greatly improved. A 2.75 x 18 mm [place] drug-eluting stent was then positioned such that its proximal edge was within the previously stented segment just distal to the ostium of the OM 2. The stent then extended distally across the in-stent restenosis and the lesion which was just beyond the previously placed stent. This stent was then deployed at 14 sudhakar. Stent balloon was then removed. A 3.0 x 9 mm noncompliant balloon was then advanced to post dilate the overlap segment. This was performed up to 15 sudhakar multiple times. The balloon was then removed. Organic Section Technical Lead angiography was performed. Guidewire was removed and final angiographic evaluation was performed. The guide catheter was then removed. We next completed diagnostic coronary angiography. A 5 [place] JR4 diagnostic catheter was used to attempt RCA cannulation. This was noted to be occluded. The 5 [place] JR4 diagnostic catheter was then advanced into the left subclavian and used to cannulate the HUGHES graft. Graft angiography was performed in orthogonal views. The diagnostic catheter was removed. Limited right femoral artery angiography was performed to evaluate for closure. Findings were favorable, therefore, the 6 [place] femoral artery sheath was exchanged over an Amplatz stiff wire for a 6 [place] Angio-Seal closure device. This was deployed in the recommended fashion. We obtained immediate hemostasis and the patient remained hemodynamically stable. He was therefore returned to recovery with plan for admission to the ICU. This ended the case. Coronary and graft angiography findings with PCI results: LMT: Medium to large caliber. Bifurcates into LAD and circumflex. Mild diffuse disease. Mild calcification. LAD: 100% occluded at the ostium. Mild to moderate calcification. Known chronic total occlusion LCx: Large caliber and probably nondominant. There is a stent train beginning just after the ostium extending into the proximal mid, and early distal AV groove vessel. The proximal and mid segments have diffuse mild in-stent restenosis of less than 20 to 30%. Then, just after the OM 2 there is in-stent restenosis and 100% occlusion with associated thrombus. KARLA 0 flow. The OM1 is small. The OM 2 is medium to large with diffuse mild disease. RCA: 100% occluded at the ostium. Chronic total occlusion previously known. HUGHES to LAD: This is a very large caliber and widely patent graft. Distal anastomosis on the early distal [place] LAD. Antegrade flow down the LAD demonstrates this to be large caliber with diffuse mild irregularities. It is transapical and provides left to right collateralization to the PDA branch of the RCA. There is also retrograde filling of the [place] LAD where a third diagonal branch is noted and is small. It has no more than mild luminal irregularities. Then, there is retrograde filling further through the mid [place] vessel. There is a small second diagonal which has a periosteal some total is stenosis in the LAD at that level has a focal 95 to 99% stenosis. There is additional retrograde filling of the mid LAD where its early as part has 70% stenosis and then is occluded at the ostium of a small caliber first diagonal. There is a medium caliber septal trunk here with 99% occlusion as well. PCI to distal AV groove circumflex: 0% residual stenosis post PCI KARLA-3 flow post PCI No evidence of dissection or perforation post PCI Following PCI there appears to be a large posterior lateral branch which has some mild wire induced vasospasm but good flow and mild luminal irregularities. Then, there appears to be a small to medium caliber PDA which is likely codominant. This has scattered mild plaques. Summary: 1. Successful PCI for acute ST elevation [place] secondary to in-stent restenosis with acute stent thrombosis of the circumflex. Drug-eluting stent implanted within the original stent and extending beyond distal lesion. 2. Chronic total occlusion of the RCA and LAD previously known. 3. Widely patent HUGHES to LAD graft. 4. Guideline directed medical therapy for secondary prevention of coronary disease including aspirin, beta-rey, high intensity statin therapy. Patient intolerant to LIDYA inhibitor. 5. Dual antiplatelet therapy with aspirin and Plavix. Recommend that this be a permanent medication given the degree of stenting and recurrence of in-stent restenosis. Hemodynamics Rest Ao:: 153/84 mmHg, mean 94 mmHg Final Ao: 105/46 mmHg, mean 71 mmHg LV: Not performed Recommendations Recommendations: PCI without planned CABG Radiation Exposure (mGy) 1874 mGy, fluoroscopy time 14.2 minutes Contrast (mls) 130 mL Anesthesia 1 mg IV Versed, 50 mcg IV fentanyl Procedural Complication(s) None I attest to the content of the Intraoperative Record and any orders documented therein. Any exceptions are noted below. [facility] Card Cath Procedure Codes Cardiac Catheterization Procedure 1: Cardiovascular Cath Procedures: 27050 Coronaries and Grafts/IM (venous & atrial) Therapeutic Services & Ancillary Procedure 1: Cardiovascular Tx and Anc Procedures: 62373 Ultrasonic Guidance Vascular Access Moderate Sedation Procedure 1: Sedation/Anesthesia: 61564 Mod Sedation by the same physician;Init15 Min Child Age 5 & Up (Initial 15 minutes (total 46 minutes)) Procedure 2: Sedation/Anesthesia: 05522 Mod Sedation by the same physician; Ea [id number] Minutes (Additional 31 minutes (total 46 minutes)) Stenting Procedure 1: Cardiovascular Stent Procedures: 05579 Perc transluminal revascularization of acute sub/total occl, aMI (LCx) PG Care Time/CCT Total # of Minutes Spent Total Time Spent with Patient: Total time spent is greater than 50% in coordination of care (as documented) at patient's floor/unit and/or counseling patient:
--- NOTE | 2022-06-17 14:38 | Critical Care Consultation ---
Date of Consultation June 17, 2022 Assessment & Plan (1) Chest pain: (2) ST elevation IA (STEMI): (3) Benign essential hypertension: (4) Atherogenic dyslipidemia: (5) Coronary artery disease: Plan Chest x-ray 06/27/2022 personally reviewed: Portable film, good respiratory eff ort, bilateral costophrenic angles are clean, increased cardiac silhouette, increased hilar vascular markings -- STEMI S/p cardiac cath by Dr. Hanna 06/17/22 In-stent restenosis s/p PCI circumflex Continue with aspirin and Plavix Continue with beta-rey History of ARB intolerance r Trend troponins and EKG -- Hypertension Continue with amlodipine, hydrochlorothiazide, metoprolol --Dyslipidemia Continue with statin --BPH Continue with Flomax -- Chronic thrombocytopenia Continue to monitor --Prophylaxis VTE: IPC GI: Pantoprazole Lines: Peripheral Diet: Cardiac Plan: Trend troponin and EKG Start the patient on cardiac diet Give pantoprazole given the patient is on dual antiplatelet therapy Monitor for any signs of bleeding Please note the above document was generated using voice recognition software. It may contain grammatical, syntax or spelling errors.Any formal questions or concerns about the content, text or information contained within the body of this dictation should be directly addressed to the provider for clarification. History of Present Illness Attending Physician: Philip Green MD History of Present Illness 61-year-old male presented to the hospital for chest pain Past medical history: CABG 2006, PCI in 2010 as well as 2016, asthma Patient found to have a STEMI and was sent to Sports Physiotherapist Patient is in the ICU for further care At the time of examination patient systolic blood pressure was in the 130s, heart rate in the high 50s. He was not in any respiratory distress. Denied any chest pain He said he is feeling much better since coming to the hospital. He has been compliant with his medications at home. Did not have any fever or chills No chest pain, no chest tightness right now No dizziness, no lightheadedness No dysuria, no diarrhea No nausea or vomiting No abdominal pain Social history: Lifetime non-smoker, denies any illicit drug use, social alcohol History of asthma in brother who is a smoker Allergies Allergy/AdvReac Type Severity Reaction Status Date / Time losartan [From Cozaar] Allergy Unknown Unknown Verified 03/03/22 09:13 sulfamethoxazole Allergy Unknown Unknown Verified 03/03/22 09:13 [From Bactrim] trimethoprim [From Bactrim] Allergy Unknown Unknown Verified 03/03/22 09:13 Home Medications Medication Instructions Recorded Confirmed Type acitretin 10 mg capsule 10 mg PO QAM 03/21/18 03/03/22 History clopidogrel 75 mg tablet (Plavix) 75 mg PO QAM 03/21/18 03/03/22 History rosuvastatin 40 mg tablet 40 mg PO HS 03/21/18 03/03/22 History nitroglycerin 0.4 mg sublingual 0.4 mg sublingual Q5M PRN chest 12/10/18 History tablet pain ranolazine 500 mg tablet,extended 500 mg PO BID #60 tabs 12/10/18 03/03/22 History release,12 hr metoprolol tartrate 50 mg tablet 50 mg PO BID 12/20/18 03/03/22 History ciclesonide 80 mcg/actuation 1 puff inhalation BID 03/10/21 03/03/22 History aerosol inhaler (Alvesco) hydrochlorothiazide 12.5 mg tablet 12.5 mg PO QAM 03/10/21 03/03/22 History tamsulosin 0.4 mg capsule (Flomax) 0.4 mg PO QAM 03/10/21 03/03/22 History isosorbide mononitrate 30 mg 30 mg PO QAM 06/03/21 03/03/22 History tablet,extended release 24 hr isosorbide mononitrate 60 mg 60 mg PO QAM 06/03/21 03/03/22 History tablet,extended release 24 hr albuterol sulfate 90 mcg/actuation 2 puff inhalation QID PRN 09/01/21 03/03/22 History aerosol inhaler Shortness Of Breath amlodipine 2.5 mg tablet 2.5 mg PO QAM 09/01/21 03/03/22 History bromfenac 0.07 % eye drops 1 drp ophthalmic (eye) DAILY 02/02/22 03/03/22 History (Prolensa) clobetasol 0.05 % topical foam 1 applic topical DAILY 02/02/22 03/03/22 History difluprednate 0.05 % eye drops 1 drp ophthalmic (eye) BID 02/02/22 03/03/22 History (Durezol) lactulose 10 gram/15 mL oral 15 ml PO BID 02/02/22 03/03/22 History solution tetrahydrozoline 0.05 % eye drops 1 drp ophthalmic (eye) BID 02/02/22 03/03/22 History (Visine) acetaminophen 300 mg-codeine 30 mg 1 tab PO BID 02/25/22 03/03/22 History tablet hydroxychloroquine 200 mg tablet 200 mg PO BID 02/25/22 03/03/22 History clopidogrel 75 mg tablet 75 mg PO QAM Previously on this 03/04/22 Rx med for cardiac hist 6 months #180 tabs naproxen 500 mg tablet 500 mg PO BID post op pain and 03/04/22 Rx inflammation relief 30 days #60 tabs oxycodone 5 mg tablet 5 - 10 mg PO Q4H PRN pain #28 tabs 03/04/22 Rx Patient History Medical History Asthma CAD (coronary artery disease) Hx remote stents/CABG GERD (gastroesophageal reflux disease) Hx of glaucoma Hyperlipidemia Hypertension Inmate in correctional facility [facility] Lupus Myocardial Infarction multiple (2002/2004?/2010/2015) Per cardiology note: "first IA in 2002 while living in [place]. He cannot recall what hospital he went to. In 2004 to 2006 he had another myocardial infarction in [place] and underwent CABG x 2 and PCI x 2. In 2010 while being arrested, he had another myocardial infarction and went to [facility] and underwent PCI. In 2015 while incarcerated in [facility], he went to [facility] for another myocardial infarction and underwent PCI" Osteoarthritis Surgical History History of bilateral cataract extraction History of cardiac cath Multiple, most recent 08/2021 ([place]) History of coronary artery bypass graft ~2004 History of heart artery stent 2002 x 4 STENTS History of open reduction and internal fixation (ORIF) procedure LE History of right hip replacement Family History Other Family history unknown Social History Smoking Status: Never smoker Second Hand Exposure: No; Hx Alcohol Use: No Hx Substance Use: No Preferred Language: Czech Communication Ability: Effective Branch Office Administrator Required: No Beliefs That Will Affect Care: None Current Living Situation: Other Current Living Situation Comment: [facility] Feels Safe at Home: Yes Safety Concerns: Feels Safe At This Time Assistive Devices: Cane Review of Systems Review of Systems: All systems reviewed & are unremarkable except as noted in HPI & below Physical Exam Physical Exam: Constitutional: No acute distress HEENT: EOMI, PERRLA Respiratory system: Good air entry bilaterally, no wheeze, rhonchi, mild crackles bilateral lower lobes CVS: S1-S2 positive, no murmurs or gallops Abdomen: Soft, nontender, nondistended, positive bowel sounds x4, obese Extremities: +2 pulses bilaterally radialis/ dorsalis pedis, no cyanosis, +2 pitting edema bilateral lower lower extremity (chronic), +1 pitting edema right lower extremity Neuro: Awake alert oriented x3 Psych: Normal mood and affect G/U: No Turner Skin: no rashes, warm and dry Lymphatic: no cervical or axillary lymphadenopathy Results & Data Results & Data ([facility]) Vital Signs (Past 12 Hours) Vital Signs Temp Pulse Resp BP Pulse Ox O2 Del Method 06/17/22 11:31 Room Air 06/17/22 11:10 Room Air 06/17/22 11:10 36.9 C 58 L 14 134/85 100 Laboratory Results 06/17/22 11:43 06/17/22 11:43 Coding Level of Care Code INP/OBS CONSULT LVL 4, 60 MIN Diagnoses Chest pain R07.9 ST elevation IA (STEMI) I21.3 Benign essential hypertension I10 Atherogenic dyslipidemia E78.5 Coronary artery disease I25.10
[2022-06-17] MEDS: SODIUM CHLORIDE 0.9% 1000ML 1,000 ML IV SCH (15:09)
--- NOTE | 2022-06-17 15:11 | Cardiology Consultation ---
Date of Consultation June 17, 2022 Assessment & Plan (1) ST elevation MS (STEMI): In-stent restenosis with acute stent thrombosis of the circumflex. Status post PCI with implantation of an overlapped drug-eluting stent. Good angiographic results. He will remain on dual antiplatelet therapy with aspirin and Plavix for as long as tolerated. Guideline directed medical therapy for secondary prevention of coronary disease as below. (2) Cardiomyopathy: Previously with normal ejection fraction. Now recurrent MS. We will obtain an echocardiogram to evaluate for abnormalities in LV structure or function. Evaluate valves. We will titrate his medical regimen as indicated by results. (3) Benign essential hypertension: Patient's been on a number of medications including amlodipine 2.5 mg daily, hydrochlorothiazide 12.5 mg daily, isosorbide mononitrate 90 mg daily, metoprolol tartrate 50 mg p.o. twice daily. He will be placed on metoprolol tartrate 50 mg p.o. twice daily. We will reintroduce his other medications as tolerated pending evolution of his clinical course. We will need to look further into his ARB intolerance. Particularly if he has significantly reduced EF as valsartan as part of Entresto would be indicated. (4) Atherogenic dyslipidemia: Patient is high risk. High intensity statin therapy recommended. We will check a fasting lipid panel. He had been reportedly on Crestor 40 mg daily. He should return to this with possibility of additional adjuvant therapy if indicated by results of his fasting lipid panel. (5) Coronary artery disease: Severe and progressive. Status post PCI. Guideline directed medical therapy with metoprolol tartrate, high intensity statin, low-dose aspirin. Consider LIDYA inhibitor/ARB once we have determined how his intolerance to losartan manifest. We will likely continue antianginal regimen with long-acting nitrate and Ranexa. Plan ICU for 24 hours. Complete echo and labs. Additional recommendations tomorrow. History of Present Illness Reason for Consultation: Chest pain Attending Physician: Philip Green MD History of Present Illness 61-year-old prisoner with a longstanding and extensive history of coronary disease presents with onset of chest pain similar to his prior myocardial infarction chest pain. Initial EKG without definitive ischemic changes. Initial troponin was negative. However, patient with persistent chest discomfort. Repeat EKG slightly different than the initial EKG but not meeting criteria for ST elevation MS. Finally, a third EKG demonstrated evidence of acute ST elevation MS with ST elevations inferiorly and reciprocal ST depressions in lateral leads I and aVF. For that reason, patient was taken emergently to the cardiac catheterization suite where he underwent diagnostic cardiac cath and PCI to the circumflex. He is now admitted to the ICU. Reviewing the patient's history he had first myocardial infarction involving the RCA prior to July 2008. This was treated with stenting to the RCA (details unknown). He then returned with chest pain and underwent cardiac catheterization on August 04, 2008. He received a robotic assisted minimally invasive coronary artery bypass of the severe ostial LAD stenosis with a HUGHES to LAD bypass. Coronary angiography preceding our operation revealed the prior RCA stent was patent. In November 2009 he presented to the [facility] with recurrent non-ST elevation MS and underwent cardiac catheterization with PCI of the circumflex. A 3.0 x 30 mm bare-metal stent was utilized. Coronary angiography at that time also revealed ostial LAD 100% occlusion, patent HUGHES to LAD bypass graft, and severe circumflex disease including proximal 60%, mid 90%, and distal 60 to 70% stenosis. The bare-metal stent was placed across the entire diseased segment. In December 2014 the patient presented to the [facility] in [facility]. He had a cardiac catheterization done at that time which revealed mild left main disease, PROJECT ADMIN of the ostial LAD, newly identified PROJECT ADMIN of the RCA, patent HUGHES to LAD graft, and 99% in-stent restenosis of the mid circumflex. A 2.75 x 22 mm drug-eluting stent was placed within the previously placed bare-metal stent across the mid circumflex stenosis. In January 2016 he again presented with chest pain. He did not have any new findings and had chronic total occlusion of the RCA and LAD. Stents were patent. More recently, in 2017 he presented to this institution where he had coronary angiography. This again demonstrated PROJECT ADMIN of the LAD, patent HUGHES to LAD graft, and angiographically moderate in-stent restenosis in the circumflex. This was evaluated by Doppler wave wire and found to be not hemodynamically significant. A final catheterization was performed in August 2021 which did not show any significant changes. He has had multiple echocardiograms all of which demonstrated low normal to normal EF. Post MS the patient is without any ongoing chest pain. He is hemodynamically stable. He does have a chronic chest pain syndrome associated with his lupus. He is also had crush injury to his lower extremity and has chronic venous stasis changes. He denies any recent syncope, near syncope, orthopnea, PND, racing heartbeat, palpitations, or preceding anginal episodes. Allergies Allergy/AdvReac Type Severity Reaction Status Date / Time losartan [From Cozaar] Allergy Unknown Unknown Verified 03/03/22 09:13 sulfamethoxazole Allergy Unknown Unknown Verified 03/03/22 09:13 [From Bactrim] trimethoprim [From Bactrim] Allergy Unknown Unknown Verified 03/03/22 09:13 Home Medications Medication Instructions Recorded Confirmed Type acitretin 10 mg capsule 10 mg PO QAM 03/21/18 03/03/22 History clopidogrel 75 mg tablet (Plavix) 75 mg PO QAM 03/21/18 03/03/22 History rosuvastatin 40 mg tablet 40 mg PO HS 03/21/18 03/03/22 History nitroglycerin 0.4 mg sublingual 0.4 mg sublingual Q5M PRN chest 12/10/18 03/03/22 History tablet pain ranolazine 500 mg tablet,extended 500 mg PO BID #60 tabs 12/10/18 03/03/22 History release,12 hr metoprolol tartrate 50 mg tablet 50 mg PO BID 12/20/18 03/03/22 History ciclesonide 80 mcg/actuation 1 puff inhalation BID 03/10/21 03/03/22 History aerosol inhaler (Alvesco) hydrochlorothiazide 12.5 mg tablet 12.5 mg PO QAM 03/10/21 03/03/22 History tamsulosin 0.4 mg capsule (Flomax) 0.4 mg PO QAM 03/10/21 03/03/22 History isosorbide mononitrate 30 mg 30 mg PO QAM 06/03/21 03/03/22 History tablet,extended release 24 hr isosorbide mononitrate 60 mg 60 mg PO QAM 06/03/21 03/03/22 History tablet,extended release 24 hr albuterol sulfate 90 mcg/actuation 2 puff inhalation QID PRN 09/01/21 03/03/22 History aerosol inhaler Shortness Of Breath amlodipine 2.5 mg tablet 2.5 mg PO QAM 09/01/21 03/03/22 History bromfenac 0.07 % eye drops 1 drp ophthalmic (eye) DAILY 02/02/22 03/03/22 History (Prolensa) clobetasol 0.05 % topical foam 1 applic topical DAILY 02/02/22 03/03/22 History difluprednate 0.05 % eye drops 1 drp ophthalmic (eye) BID 02/02/22 03/03/22 History (Durezol) lactulose 10 gram/15 mL oral 15 ml PO BID 02/02/22 03/03/22 History solution tetrahydrozoline 0.05 % eye drops 1 drp ophthalmic (eye) BID 02/02/22 03/03/22 History (Visine) acetaminophen 300 mg-codeine 30 mg 1 tab PO BID 02/25/22 03/03/22 History tablet hydroxychloroquine 200 mg tablet 200 mg PO BID 02/25/22 03/03/22 History clopidogrel 75 mg tablet 75 mg PO QAM Previously on this 03/04/22 Rx med for cardiac hist 6 months #180 tabs naproxen 500 mg tablet 500 mg PO BID post op pain and 03/04/22 Rx inflammation relief 30 days #60 tabs oxycodone 5 mg tablet 5 - 10 mg PO Q4H PRN pain #28 tabs 03/04/22 Rx Patient History Medical History Asthma CAD (coronary artery disease) Hx remote stents/CABG GERD (gastroesophageal reflux disease) Hx of glaucoma Hyperlipidemia Hypertension Inmate in correctional facility [facility] Lupus Myocardial Infarction multiple (2002/2004?/2010/2015) Per cardiology note: "first MS in 2002 while living in [place]. He cannot recall what hospital he went to. In 2004 to 2006 he had another myocardial infarction in [place] and underwent CABG x 2 and PCI x 2. In 2010 while being arrested, he had another myocardial infarction and went to [facility] and underwent PCI. In 2015 while incarcerated in [facility], he went to [facility] for another myocardial infarction and underwent PCI" Osteoarthritis Surgical History History of bilateral cataract extraction History of cardiac cath Multiple, most recent 08/2021 ([place]) History of coronary artery bypass graft ~2004 History of heart artery stent 2002 x 4 STENTS History of open reduction and internal fixation (ORIF) procedure LE History of right hip replacement Family History Other Family history unknown Social History Smoking Status: Never smoker Second Hand Exposure: No; Hx Alcohol Use: No Hx Substance Use: No Preferred Language: Jamaican Communication Ability: Effective 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 Predominantly with speech. Lungs are clear. Cardiovascular: Regular rate and rhythm. I do not appreciate any murmurs or rubs. Trace to 1+ bilateral lower extremity edema Skin: He appears somewhat ashen with cyanosis distally Neurologic: Decreased hearing. Cognition is intact. Speech is fluent. No focal deficits. No tremor. Psychiatric: A+Ox3, euthymic affect Results & Data ([facility]) Vital Signs (Past 12 Hours) Vital Signs Temp Pulse Resp BP Pulse Ox O2 Del Method 06/17/22 11:31 Room Air 06/17/22 11:10 Room Air 06/17/22 11:10 36.9 C 58 L 14 134/85 100 PG Care Time/CCT Total # of Minutes Spent Total Time Spent with Patient: Total time spent is greater than 50% in coordination of care (as documented) at patient's floor/unit and/or counseling patient: Critical Care Time: Yes Total Critical Care Time: 75 I spent a total of 75 minutes critical care time in the initial evaluation, review of outpatient records, review of available inpatient records, review of remote history from outside institutions, examination, discussion with the patient and the medical team, formulation and implementation of a plan of care, and all associated documentation. This is exclusive of the time spent for his procedure. Coding Level of Care Code New Pt INP/OBS CONSULT LVL 5, 80 MIN Patient Type New Diagnoses ST elevation MS (STEMI) I21.3 Cardiomyopathy I42.9 Benign essential hypertension I10 Atherogenic dyslipidemia E78.5 Coronary artery disease I25.10 Additional Codes Critical Care Time - Critical Care Time: Yes ([id number])
--- NOTE | 2022-06-17 16:04 | History & Physical Report ---
Date of Service June 17, 2022 Assessment & Plan (1) ST elevation [place] (STEMI): Plan: -Admit to the ICU -The patient is currently afebrile, hemodynamically stable and stable on RA -Patient found to have STEMI due to acute stent thrombosis of the circumflex.Status post PCI with implantation of an overlapped drug-eluting stent -As per the cardiology consultation, continue Dual antiplatelet therapy with aspirin and plavix (ordered by cardiology), patient received aspirin prior to arrival by EMS today -Will continue his metoprolol tartrate 50 mg PO BID for now -confirmed with Cardiology to hold his amlodipine, Imdur, and Ranolazine for now and will readdress during his admission -Continue statin -AM Lipid panel and A1c ordered -TTE ordered for tomorrow to assess heart function -Monitor on tele and pulse oximetry -AM CBC, CMP, PT/INR (2) Benign essential hypertension: Plan: -Stable -See STEMI plan (3) Cardiomyopathy: Plan: -Hold Imdur for now per the STEMI plan (4) Atherogenic dyslipidemia: Plan: -See STEMI plan (5) Leg length difference, acquired: Plan: -Stable -From previous left lower extremity crush injury (6) Lupus: Plan: -Continue hydroxychloroquine (7) GERD (gastroesophageal reflux disease): Plan: -Pantoprazole 40 mg PO daily while admitted (8) Asthma: Plan: -Stable on RA -Continue albuterol and alvesco -Incentive spirometry Plan The patient was discussed with Dr. Wray at the time of the admission Admission and Anticipated Discharge Date Admission Date: June 17, 2022 History of Present Illness Chief Complaint: Chest pain Primary Care Provider: TIANNA Mcfarland is a 61 year old male inmate of [facility] with a PMH significant for CAD S/P CABG in 2006, PCI in 2010 as well as 2016, asthma, hyperlipidemia, HTN, cardiomyopathy, Lupus, asthma, chronic constipation, GERD, and previous crush injury to the left leg with S/P fusion of the left lower extrmity with chronic limb length discrepancy who presented to the [facility] ED on 06/17/22 with a chief complaint of chest pain starting at 0300 this morning. In the ED that patient was found to be afebrile, hemodynamically stable, and stable on RA. Labs were remarkable for a WBC WNL, stable Hgb at 14.5, thrombocytopenia of 91 (improved compared to 80 as of 03/04/23), stable cr of 0.93, stable electrolytes, MRSA swab and acute hepatitis panels pending, first high sensitivity trop of 301, [place] [address]. Chest xray was read as "Cardiomegaly with prominence of the pulmonary vasculature. Correlate clinical history for evidence of fluid overload/mild congestive change.". His initial ECG and troponin were negative but repeat ECGs demonstrated evidence of acute ST elevation [place] with ST elevations inferiorly and reciprocal ST depressions in lateral leads I and aVF; repeat troponin was elevated at 301. The patient was placed on a heparin drip by the ED until he was taken to the [facility]. The patient was evaluated by Dr. Hanna of Cardiology and the patient was taken emergently to the [facility] animal laboratory. The patient was found to have "In-stent restenosis with acute stent thrombosis of the circumflex. Status post PCI with implantation of an overlapped drug-eluting stent.". The patient was evaluated in the ICU after his cardiac catheterization and was lying in bed comfortably in no acute distress. He currently feel well after the procedure and has no current complaints, he was able to eat lunch prior to my arrival without issue. He states that he started to develop substernal/right chest pain at approximately 0300 this am. He took two nitroglycerine tabs and use an albuterol treatment without resolution of his symptoms. He uses a third nitro tab with slight improvement of his symptoms. At approximately 0800 his symptoms progressed and this is when he sought out the [facility] staff and was brought to the ED. He confirmed that he took all of his am medications prior to coming to the ED. After confirming his med rec from the [facility] he is no longer on Hydrochlorothiazide and Acitretin. He confirms that he has chronic chest pain which is typically on the right side of his chest, which is currently at it's baseline during my exam. We discussed code status, he wishes to be a full code. He currently denies fever, chills, changes in vision, hearing, taste, and smell, new/worsening chest pain, SOB, abdominal pain, nausea, vomiting, diarrhea, dysuria, hematuria, and recent trauma. Please refer to Dr. Wray's attestation for any changes to the treatment plan. Allergies Allergy/AdvReac Type Severity Reaction Status Date / Time losartan [From Cozaar] Allergy Unknown Unknown Verified 03/03/22 09:13 sulfamethoxazole Allergy Unknown Unknown Verified 03/03/22 09:13 [From Bactrim] trimethoprim [From Bactrim] Allergy Unknown Unknown Verified 03/03/22 09:13 Home Medications Medication Instructions Recorded Confirmed Type acitretin 10 mg capsule 10 mg PO QAM 03/21/18 03/03/22 History clopidogrel 75 mg tablet (Plavix) 75 mg PO QAM 03/21/18 03/03/22 History rosuvastatin 40 mg tablet 40 mg PO HS 03/21/18 03/03/22 History nitroglycerin 0.4 mg sublingual 0.4 mg sublingual Q5M PRN chest 12/10/18 03/03/22 History tablet pain ranolazine 500 mg tablet,extended 500 mg PO BID #60 tabs 12/10/18 03/03/22 History release,12 hr metoprolol tartrate 50 mg tablet 50 mg PO BID 12/20/18 03/03/22 History ciclesonide 80 mcg/actuation 1 puff inhalation BID 03/10/21 03/03/22 History aerosol inhaler (Alvesco) hydrochlorothiazide 12.5 mg tablet 12.5 mg PO QAM 03/10/21 03/03/22 History tamsulosin 0.4 mg capsule (Flomax) 0.4 mg PO QAM 03/10/21 03/03/22 History isosorbide mononitrate 30 mg 30 mg PO QAM 06/03/21 03/03/22 History tablet,extended release 24 hr isosorbide mononitrate 60 mg 60 mg PO QAM 06/03/21 03/03/22 History tablet,extended release 24 hr albuterol sulfate 90 mcg/actuation 2 puff inhalation QID PRN 09/01/21 03/03/22 History aerosol inhaler Shortness Of Breath amlodipine 2.5 mg tablet 2.5 mg PO QAM 09/01/21 03/03/22 History bromfenac 0.07 % eye drops 1 drp ophthalmic (eye) DAILY 02/02/22 03/03/22 History (Prolensa) clobetasol 0.05 % topical foam 1 applic topical DAILY 02/02/22 03/03/22 History difluprednate 0.05 % eye drops 1 drp ophthalmic (eye) BID 02/02/22 03/03/22 History (Durezol) lactulose 10 gram/15 mL oral 15 ml PO BID 02/02/22 03/03/22 History solution tetrahydrozoline 0.05 % eye drops 1 drp ophthalmic (eye) BID 02/02/22 03/03/22 History (Visine) acetaminophen 300 mg-codeine 30 mg 1 tab PO BID 02/25/22 03/03/22 History tablet hydroxychloroquine 200 mg tablet 200 mg PO BID 02/25/22 03/03/22 History clopidogrel 75 mg tablet 75 mg PO QAM Previously on this 03/04/22 Rx med for cardiac hist 6 months #180 tabs naproxen 500 mg tablet 500 mg PO BID post op pain and 03/04/22 Rx inflammation relief 30 days #60 tabs oxycodone 5 mg tablet 5 - 10 mg PO Q4H PRN pain #28 tabs 03/04/22 Rx Past Med/Surg History Medical History (Updated 06/17/22 @ 16:48 by Bruce Monroy PA-C) Asthma CAD (coronary artery disease) Hx remote stents/CABG GERD (gastroesophageal reflux disease) Hx of glaucoma Hyperlipidemia Hypertension Inmate in [facility] facility [facility] Lupus Myocardial Infarction multiple (2002/2004?/2010/2015) Per cardiology note: "first [place] in 2002 while living in [place]. He cannot recall what hospital he went to. In 2004 to 2006 he had another myocardial infarction in [place] and underwent CABG x 2 and PCI x 2. In 2010 while being arrested, he had another myocardial infarction and went to [facility] and underwent PCI. In 2015 while incarcerated in [facility], he went to [facility] for another myocardial infarction and underwent PCI" Osteoarthritis Surgical History History of bilateral cataract extraction History of cardiac cath Multiple, most recent 08/2021 ([place]) History of coronary artery bypass graft ~2004 History of heart artery stent 2003 x 4 STENTS History of open reduction and internal fixation (ORIF) procedure LE History of right hip replacement Family History Other Family history unknown Social History Smoking Status: Never smoker Second Hand Exposure: No; Hx Alcohol Use: No Hx Substance Use: No Preferred Language: Lao Communication Ability: Effective Oil Gauger Required: No Beliefs That Will Affect Care: None Current Living Situation: Other Current Living Situation Comment: [facility] Feels Safe at Home: Yes Safety Concerns: Feels Safe At This Time Assistive Devices: Cane Review of Systems Review of Systems: Denies current fever, chills, headache, changes in vision, hearing, taste, and smell, SOB, cough, abdominal pain, nausea, vomiting, diarrhea, hematemesis, melena, dysuria, hematuria, and recent falls. All systems have been reviewed and are otherwise negative. Physical Exam Physical Exam: Physical Exam: General: In no acute distress, stated age, chronically ill-appearing HEENT: Normocephalic, atraumatic, no scleral icterus, pupils around round, symmetrical, and reactive to light, moist mucus membranes, trachea midline, no thyromegaly Chest/Pulm: No respiratory distress, symmetrical chest expansion, expiratory wheezing noted in the upper lung landis Cardiac: RRR, no murmurs noted Abdomen: Negative for ascites and bruising, patient with known abdominal hernia located in the central abdomen which is non-tender and easily reduces, normoactive bowel sounds, soft, non-tender to palpation throughout Musculoskeletal: Patient currently with upper extremities secured to the bed with handcuffs without signs of acute trauma, LLE chronically shortened and without movement due to prior procedures, RLE with intact sensation and ROM Extremities: Radial, dorsalis pedis, and posterior tibial pulses are intact and symmetrical, signs of chronic PAD in the BL LE's, no LE edema noted Skin: Warm, dry, no rashes , lesions, or scars noted Neuro: Alert and oriented to person, place, month, year, and president, no focal defects, CN II-XII tested and intact, no tremors noted Psych: No acute distress, calm and cooperative during the exam Results & Data Results & Data ([facility]) Vital Signs (Past 12 Hours) Vital Signs Temp Pulse Resp BP Pulse Ox O2 Del Method 06/17/22 15:30 59 L 16 06/17/22 15:15 60 16 98 06/17/22 15:00 55 L 14 98 06/17/22 15:00 139/94 Room Air 06/17/22 14:45 54 L 20 97 06/17/22 14:30 58 L 20 96 06/17/22 14:16 135/85 06/17/22 14:16 61 15 06/17/22 14:15 61 16 06/17/22 14:13 58 L 16 Room Air 06/17/22 14:13 135/69 06/17/22 14:08 36.6 C 06/17/22 14:08 55 L 06/17/22 14:28 Room Air 06/17/22 14:28 36.6 C 06/17/22 11:31 Room Air 06/17/22 11:10 Room Air 06/17/22 11:10 36.9 C 58 L 14 134/85 100 Laboratory Results Abnormal lab results 06/17/22 06/17/22 06/17/22 Range/Units 11:43 11:43 13:14 RDW Std Deviation 48.2 H (36.4-46.3) fL Plt Count 91 L (130-400) K/uL Nobles # (Auto) 0.68 H (0.11-0.59) K/uL Activ Coag Time Kaolin 209 H (94-140) SECONDS Troponin I High Sens 301.3 H* (0-20) pg/ml 06/17/22 06/17/22 Range/Units 13:33 15:07 RDW Std Deviation (36.4-46.3) fL Plt Count (130-400) K/uL Nobles # (Auto) (0.11-0.59) K/uL Activ Coag Time Kaolin 251 H (94-140) SECONDS Troponin I High Sens 16293.0 H* D (0-20) pg/ml Diagnostic Findings Chest X-Ray 06/17/22 11:31 SINGLE VIEW CHEST CLINICAL HISTORY: Atypical chest pain FINDINGS: An AP, portable, upright chest radiograph is obtained. No prior studies are available for comparison at the time of dictation. The examination is degraded by portable technique and apical lordotic positioning. The heart is enlarged. There is prominence of the pulmonary vasculature. There are low lung volumes. The lungs and pleural spaces are clear noting bibasilar atelectasis. No pneumothorax is seen. The bony thorax is grossly intact. Surgical clips are noted in the right chest wall. IMPRESSION: Cardiomegaly with prominence of the pulmonary vasculature. Correlate clinical history for evidence of fluid overload/mild congestive change. ACT 112: Negative or not required by law. Electronically signed by: Juancho Zepeda M.D. 06/17/2022 12:10 PM ECG Additional Comments: Sinus bradycardia Possible Left atrial enlargement Septal infarct (cited on or before 17-JUN-2022) Possible Inferior infarct , age undetermined Abnormal ECG W hen compared with ECG of 17-JUN-2022 12:35, (unconfirmed) Premature atrial complexes are no longer Present Serial changes of evolving Septal infarct Present Code Status & VTE Plan Code Status Full code VTE Prophylaxis Plan VTE Prophylaxis will be ordered: No Reason for no VTE drug order: Contraindicated PG Care Time/CCT Total # of Minutes Spent Total Time Spent with Patient: Total time spent is greater than 50% in coordination of care (as documented) at patient's floor/unit and/or counseling patient: Coding [place] [address] INT INP/OBS CARE 3/75MIN Patient Type Established History Comprehensive Exam Comprehensive Medical Decision Making High Complexity Diagnoses ST elevation [place] (STEMI) I21.3 Benign essential hypertension I10 Cardiomyopathy I42.9 Atherogenic dyslipidemia E78.5 Leg length difference, acquired M21.70 Lupus M32.9 GERD (gastroesophageal reflux disease) K21.9 Asthma J45.909
[2022-06-17] MEDS ORDERED: ALBUTEROL HFA 8 GM INHALER INH PRN (16:49)
[2022-06-17] MEDS: PANTOprazole 40 MG TAB PO SCH (17:03)
--- NOTE | 2022-06-17 17:19 | Electrocardiogram Report ---
Test Reason : Blood Pressure : / mmHG Vent. Rate : 060 BPM Atrial Rate : 060 BPM P-R Int : 172 ms QRS Dur : 106 ms QT Int : 426 ms P-R-T Axes : 049 056 086 degrees QTc Int : 426 ms Normal sinus rhythm Left atrial enlargement ST elevation in Inferior leads Anteroseptal infarct , age undetermined ST elevation in Inferior leads Possible Inferior injury pattern Abnormal ECG When compared with ECG of 30-JUN-2020 13:24, ST elevation in Inferior leads now present Confirmed by Jameson Jones ([id number]) on 06/17/2022 5:18:48 PM Referred By: [facility] Confirmed By:Jameson Jones
--- NOTE | 2022-06-17 17:24 | Electrocardiogram Report ---
Test Reason : Blood Pressure : / mmHG Vent. Rate : 059 BPM Atrial Rate : 059 BPM P-R Int : 174 ms QRS Dur : 112 ms QT Int : 418 ms P-R-T Axes : 046 060 107 degrees QTc Int : 413 ms Sinus bradycardia with Premature atrial complexes Left atrial enlargement Anteroseptal infarct , age undetermined Inferior injury pattern Abnormal ECG When compared with ECG of 17-JUN-2022 11:30, Premature atrial complexes are now Present Confirmed by Jameson Jones ([id number]) on 06/17/2022 5:24:02 PM Referred By: [facility] Confirmed By:Jameson Jones
--- NOTE | 2022-06-17 17:33 | Electrocardiogram Report ---
Test Reason : Blood Pressure : / mmHG Vent. Rate : 054 BPM Atrial Rate : 054 BPM P-R Int : 184 ms QRS Dur : 100 ms QT Int : 444 ms P-R-T Axes : 038 051 044 degrees QTc Int : 421 ms Sinus bradycardia Left atrial enlargement Anteroseptal infarct , age undetermined Septal infarct (cited on or before 17-JUN-2022) Possible Inferior infarct , age undetermined Abnormal ECG When compared with ECG of 17-JUN-2022 12:35, Premature atrial complexes are no longer Present ST elevation in Inferior leads no longer present Confirmed by Jameson Jones ([id number]) on 06/17/2022 5:32:45 PM Referred By: Yared [facility] Confirmed By:Jameson Jones
[2022-06-17] MEDS: ICU Protocol for HYPERglycemia SCH ×2 (18:19→21:27)
[2022-06-17] MEDS ORDERED: STAT IV Infusion **Titration per Protocol STA (18:39)
[2022-06-17] MEDS ORDERED: AMIODARONE IV BOLUS & DRIP IV STA (18:39)
[2022-06-17] MEDS ORDERED: 0.2 MICRON FILTER SET 1 EACH IV STA (18:39)
[2022-06-17] MEDS ORDERED: AMIODARONE / D5W 150 MG/100 ML BAG IV STA (18:39)
[2022-06-17] MEDS ORDERED: AMIODARONE 150MG / 100ML D5W IV ONE (18:41)
[2022-06-17] MEDS ORDERED: AMIODARONE 360MG / 200ML D5W IV ONE (18:42)
[2022-06-17] MEDS ORDERED: AMIODARONE / D5W 360 MG/200 ML BAG IV ONE (18:50)
[2022-06-17] MEDS: HYDROXYCHLOROQUINE SULFATE 200 MG TAB PO SCH (20:07)
[2022-06-17] MEDS: METOPROLOL TARTRATE 50 MG TAB PO SCH (20:07)
[2022-06-17] MEDS: LACTULOSE SYRUP 10 GM/15 ML BTL 960 ML PO SCH ×2 (20:07→20:09)
[2022-06-17] MEDS ORDERED: ROSUVASTATIN CALCIUM 20 MG TAB PO SCH (21:00)
[2022-06-18] MEDS: AMIODARONE / D5W 360 MG/200 ML BAG IV SCH ×2 (00:27→12:39)
[2022-06-18] MEDS: SODIUM CHLORIDE 0.9% 1000ML 1,000 ML IV SCH (02:35)
[2022-06-18 06:40] LABS: Hematocrit (blood only) 43.7 % (42.0-52.0); Hemoglobin 15.3 g/dl (14.0-18.0); Mean Corpuscular Hemoglobin 30.7 pg (25.0-34.0); Mean Corpuscular Volume 87.6 fL (80.0-100.0); Mean Platelet Volume 11.6 fL (9.4-12.4); Platelet Count 88 K/uL (130-400); RDW Coefficient of Variation 14.1 % (11.5-14.5); Red Blood Count 4.99 M/uL (4.70-6.10); White Blood Count 5.08 K/ul (4.8-10.8)
[2022-06-18 06:49] LABS: Albumin Level 3.4 gm/dl (3.4-5.0); BUN Creatinine Ratio 11.8 (10-20); Bilirubin,Total 0.5 mg/dl (0.2-1.0); Calcium 8.8 mg/dl (8.5-10.1); Creatinine Clr Calc Pharmacy 98.3 ml/min; Globulin 3.4 gm/dl (2.5-4.0); Magnesium 1.7 mg/dl (1.7-2.4); Phosphorus 3.1 mg/dl (2.5-4.9); Potassium 3.9 mmol/L (3.5-5.1); Total Protein 6.8 gm/dl (6.0-8.3)
[2022-06-18 06:54] LABS: INR 1.1 (0.9-1.1); Prothrombin Time 11.7 Seconds (9.0-12.0)
[2022-06-18] MEDS ORDERED: POTASSIUM CHLORIDE CRTAB 20 MEQ TABCR PO STA (08:05)
[2022-06-18] MEDS: MAGNESIUM SULFATE / D5W 1 GM/100 ML BAG IV SCH ×3 (08:25→12:28)
[2022-06-18] MEDS: ASPIRIN 325 MG ECTAB PO SCH (08:25)
[2022-06-18] MEDS: CLOPIDOGREL BISULFATE 75 MG TAB PO SCH (08:26)
[2022-06-18] MEDS: METOPROLOL TARTRATE 50 MG TAB PO SCH ×2 (08:26→21:12)
[2022-06-18] MEDS: PANTOprazole 40 MG TAB PO SCH (08:26)
[2022-06-18] MEDS: TAMSULOSIN HCL 0.4 MG CAP PO SCH (08:27)
[2022-06-18] MEDS: HYDROXYCHLOROQUINE SULFATE 200 MG TAB PO SCH ×2 (08:27→21:37)
[2022-06-18] MEDS: ATORVASTATIN 40 MG TAB PO SCH (08:28)
[2022-06-18] MEDS: LACTULOSE SYRUP 10 GM/15 ML BTL 960 ML PO SCH ×2 (08:29→21:14)
[2022-06-18] MEDS: ICU Protocol for HYPERglycemia SCH ×2 (08:30→12:29)
[2022-06-18] MEDS ORDERED: amLODIPine BESYLATE 5 MG TAB PO SCH (09:00)
--- NOTE | 2022-06-18 11:27 | Hospitalist Progress Note ---
Date of Service June 18, 2022 Assessment & Plan (1) ST elevation [place] (STEMI): Plan: The patient underwent emergent left heart catheterization yesterday, June 17, and was found to have circumflex in-stent restenosis and thrombus which was treated. He did experience posttransfusion ventricular tachycardia and now is on intravenous amiodarone. Cardiac echo is pending. Appreciate cardiology consultation and management. (2) Benign essential hypertension: Plan: Stable. Continue current medical management (3) Cardiomyopathy: Plan: Hold Imdur for now per the STEMI plan (4) Atherogenic dyslipidemia: Plan: Statin therapy. Low-cholesterol diet (5) Leg length difference, acquired: Plan: Supportive care. No intervention needed at this time (6) Lupus: Plan: Stable. Continue hydroxychloroquine (7) GERD (gastroesophageal reflux disease): Plan: Treated with Pantoprazole 40 mg PO daily while admitted (8) Asthma: Plan: Stable. Continue albuterol and alvesco Plan Anticipate eventual discharge back to the halfway Admission and Anticipated Discharge Date Admission Date: June 17, 2022 Subjective Alert and oriented. Case discussed with cardiology. He had some reperfusion ventricular tachycardia post heart catheterization and is now on intravenous amiodarone. Otherwise asymptomatic. Review of Systems Review of Systems: Constitutional-no fever or chills ENT-no blurred vision, no double vision, no epistaxis, no sore throat Respiratory-no cough, no wheezing, no shortness of breath Cardiac-no palpitations, no chest pain, no syncope GI-no nausea, vomiting, diarrhea, melena, hematochezia -no urinary retention, no urinary incontinence, no dysuria, no hematuria Musculoskeletal-no joint pain, no muscle tenderness Skin-no bruising, no rashes, no pruritus Neuro-no isolated weakness, no paresthesia, no weakness Psych-no depression, no anxiety Physical Exam Physical Exam: General-alert and oriented x3, no fevers, no chills HEENT-head atraumatic and normocephalic, pupils equal and reactive to light, extraocular muscles intact Neck-no lymphadenopathy or thyromegaly, trachea midline Chest-clear to auscultation percussion. No rales wheezing or rhonchi Cardiac-regular rate and rhythm, normal S1 and S2 Abdomen-normal bowel sounds, nontender, no hepatosplenomegaly Extremities-no cyanosis, clubbing, or edema Neuro-cranial nerves II through XII intact, motor and sensory function within normal limits, strength symmetrical , no focal deficits Psych-normal affect, normal mood Results & Data Results & Data ([facility]) Vital Signs (Past 12 Hours) Vital Signs Temp Pulse Resp BP Pulse Ox O2 Del Method 06/18/22 09:30 61 15 99 Room Air 06/18/22 09:08 127/78 06/18/22 09:08 63 16 98 Room Air 06/18/22 09:00 61 18 96 Room Air 06/18/22 08:30 65 21 97 Room Air 06/18/22 08:01 154/96 H 06/18/22 08:01 66 17 98 Room Air 06/18/22 08:00 66 16 96 Room Air 06/18/22 07:30 60 15 96 Room Air 06/18/22 07:01 60 16 96 Room Air 06/18/22 07:01 160/116 H 06/18/22 07:00 61 18 97 Room Air 06/18/22 08:00 60 06/18/22 05:00 68 15 06/18/22 04:00 36.8 C 62 15 06/18/22 04:00 147/93 H 06/18/22 03:00 59 L 15 06/18/22 03:00 168/97 H 06/18/22 02:00 59 L 15 96 06/18/22 02:00 146/83 H 06/18/22 01:00 59 L 14 95 06/18/22 01:00 147/93 H 06/18/22 00:00 59 L 14 96 06/18/22 00:00 150/86 H 06/18/22 00:00 65 Laboratory Results 06/18/22 06:10 06/18/22 06:10 PG Care Time/CCT Total # of Minutes Spent Total Time Spent with Patient: Total time spent is greater than 50% in coordination of care (as documented) at patient's floor/unit and/or counseling patient: Coding Level of Care Code 64568 SUB INP/OBS CARE 3/50MIN Diagnoses ST elevation [place] (STEMI) I21.3 Benign essential hypertension I10 Cardiomyopathy I42.9 Atherogenic dyslipidemia E78.5 Leg length difference, acquired M21.70 Lupus M32.9 GERD (gastroesophageal reflux disease) K21.9 Asthma J45.909
--- NOTE | 2022-06-18 12:23 | Cardiology Progress Note ---
Date of Service June 18, 2022 Assessment & Plan (1) ST elevation [place] (STEMI): Plan: Status post PCI. He will remain on dual antiplatelet therapy with aspirin 325 mg daily and Plavix 75 mg daily. His blood pressure has been above target at times. His heart rate is at target most of the time. Continue metoprolol tartrate 50 mg p.o. twice daily. Once he is off of the amiodarone drip then would reinstitute isosorbide mononitrate 90 mg daily. Since he has intolerance to an angiotensin receptor rey and we are not able to determine how severe his adverse event was (? Angioedema) we will avoid ARB and LIDYA inhibitor. He has been having typical reperfusion arrhythmia with AIVR and brief episodes of NSVT. These should resolve by 48 hours post PCI. I would complete the amiodarone drip protocol for 24 hours in total then stop amiodarone drip. If he continues to have ventricular tachycardia after discontinuation then change to oral amiodarone 200 mg p.o. twice daily. If he does not have NSVT then he will be okay for beta-rey and complete discontinuation of the amiodarone. His echocardiogram does not demonstrate high risk LV dysfunction for recurrent ventricular tachycardia. (2) Coronary artery disease: Plan: Severe. Guideline directed medical therapy with aspirin, high intensity statin (return to Crestor 40 mg daily at discharge), beta-rey, but cannot tolerate LIDYA inhibitor/ARB. Chronic anginal regimen will include isosorbide mononitrate and we will also likely recommend resumption of Ranexa 500 mg p.o. twice daily. (3) Benign essential hypertension: Plan: Blood pressure has mostly been above target. Continue metoprolol tartrate 50 mg p.o. twice daily. Resume isosorbide mononitrate and once amiodarone discontinued we will also likely need resumption of amlodipine 2.5 mg daily. (4) Atherogenic dyslipidemia: Plan: High risk. High intensity statin therapy. Provided a atorvastatin 40 mg daily as an inpatient. At discharge this will be returned to prior regimen of rosuvastatin 40 mg p.o. daily. Plan Once patient has completed amiodarone protocol and if he is not demonstrated any further high risk arrhythmia that he would be appropriate for transfer to stepdown unit. Anticipate he will be ready for discharge within 24 to 48 hours. NOTE: A total of 50 minutes was spent in review of the record, review of monitor events, examination of the patient, discussion with the medical team, discussion with the patient, formulation and implementation of a plan of care, and documentation of all of the above. Admission and Anticipated Discharge Date Admission Date: June 17, 2022 Subjective 61-year-old male status post PCI to the circumflex for acute NE. Multiple prior MIs, stents, and single-vessel CABG. Hemodynamically stable overnight. He has had reperfusion arrhythmia including AIVR, brief runs of nonsustained ventricular tachycardia, bigeminy, and PVCs. He was placed on amiodarone IV in the [employer] for AIVR. Then, this was held but he developed recurrent AIVR sometimes with heart rate over 100 (NSVT) and has subsequently been placed back on amiodarone drip. His beta-rey has been provided. Reviewing his monitor overnight suggest that he is now having more isolated PVCs or bigeminy then he is having reperfusion arrhythmia of AIVR/NSVT. He has been hemodynamically stable throughout this and he had no more than "fluttering" in his chest. He denies any anginal chest pain, no further shortness of breath. Feeling much better at this time. Review of Systems Review of Systems: Negative except as per HPI Physical Exam Constitutional: Awake, alert, oriented chronically ill-appearing. No acute distress. Eyes: Extraocular muscles intact. Sclera are anicteric. ENMT: Oral mucosa is pink and moist. Neck: No JVD. Respiratory: Bibasilar crackles. Otherwise clear. No wheezing or rhonchi. Fair air movement. Cardiovascular: Regular rate and rhythm with frequent ventricular ectopy on monitor. Soft systolic murmur. S4 gallop. No edema. Neurologic: Cognition intact. Speech is fluent. No focal deficits. Psychiatric: A+Ox3, euthymic affect Results & Data ([facility]) Vital Signs (Past 12 Hours) Vital Signs Temp Pulse Resp BP Pulse Ox O2 Del Method 06/18/22 09:30 61 15 99 Room Air 06/18/22 09:08 127/78 06/18/22 09:08 63 16 98 Room Air 06/18/22 09:00 61 18 96 Room Air 06/18/22 08:30 65 21 97 Room Air 06/18/22 08:01 154/96 H 06/18/22 08:01 66 17 98 Room Air 06/18/22 08:00 66 16 96 Room Air 06/18/22 07:30 60 15 96 Room Air 06/18/22 07:01 60 16 96 Room Air 06/18/22 07:01 160/116 H 06/18/22 07:00 61 18 97 Room Air 06/18/22 08:00 60 06/18/22 05:00 68 15 06/18/22 04:00 36.8 C 62 15 06/18/22 04:00 147/93 H 06/18/22 03:00 59 L 15 06/18/22 03:00 168/97 H 06/18/22 02:00 59 L 15 96 06/18/22 02:00 146/83 H 06/18/22 01:00 59 L 14 95 06/18/22 01:00 147/93 H PG Care Time/CCT Total # of Minutes Spent Total Time Spent with Patient: Total time spent is greater than 50% in coordination of care (as documented) at patient's floor/unit and/or counseling patient: Coding [place] [address] SUB INP/OBS CARE 3/50MIN Patient Type Established Diagnoses ST elevation NE (STEMI) I21.3 Coronary artery disease I25.10 Benign essential hypertension I10 Atherogenic dyslipidemia E78.5
--- NOTE | 2022-06-18 12:26 | Critical Care Progress Note ---
Date of Service June 18, 2022 Assessment & Plan (1) Chest pain: (2) ST elevation [place] (STEMI): (3) Benign essential hypertension: (4) Atherogenic dyslipidemia: (5) Coronary artery disease: Plan Chest x-ray 06/27/2022 personally reviewed: Portable film, good respiratory effort, bilateral costophrenic angles are clean, increased cardiac silhouette, increased hilar vascular markings -- STEMI S/p cardiac cath by Dr. Hanna 06/17/22 In-stent restenosis s/p PCI circumflex Continue with aspirin and Plavix Continue with beta-rey History of ARB intolerance r Trend troponins and EKG --Sustained V. tach Likely from reperfusion Amiodarone has been started Cardiology on board -- Hypertension Continue with metoprolol --Dyslipidemia Continue with statin --BPH Continue with Flomax Patient still complaining of difficulty urinating. Consideration to increasing the dose or adding finasteride can be made -- Chronic thrombocytopenia Continue to monitor -- History of lupus On hydroxychloroquine --Prophylaxis VTE: IPC GI: Pantoprazole Lines: Peripheral Diet: Cardiac Plan: In/out: +1.2 L, urine output 100 mL Magnesium and potassium are being replaced. Disposition as per cardiology recommendation Please note the above document was generated using voice recognition software. It may contain grammatical, syntax or spelling errors.Any formal questions or concerns about the content, text or information contained within the body of this dictation should be directly addressed to the provider for clarification. Admission and Anticipated Discharge Date Admission Date: June 17, 2022 Subjective Patient seen and examined at bedside. No acute distress neck Overnight patient did have sustained V. tach up to 47 beats. He was loaded with amiodarone again and started on amiodarone drip At the time of examination he denied any chest pain, no shortness of breath No headache, no nausea vomiting Was asking if he could go sit on the commode. Review of Systems Review of Systems: All systems reviewed & are unremarkable except as noted in Subjective Physical Exam Physical Exam: Constitutional: No acute distress HEENT: EOMI, PERRLA Respiratory system: Good air entry bilaterally, no wheeze, rhonchi, mild crackles bilateral lower lobes CVS: S1-S2 positive, no murmurs or gallops Abdomen: Soft, nontender, nondistended, positive bowel sounds x4, obese Extremities: +2 pulses bilaterally radialis/ dorsalis pedis, no cyanosis, +2 pitting edema bilateral lower lower extremity (chronic), +1 pitting edema right lower extremity Neuro: Awake alert oriented x3 Psych: Normal mood and affect G/U: No Turner Skin: no rashes, warm and dry Lymphatic: no cervical or axillary lymphadenopathy Results & Data Results & Data ([facility]) Vital Signs (Past 12 Hours) Vital Signs Temp Pulse Resp BP Pulse Ox O2 Del Method 06/18/22 09:30 61 15 99 Room Air 06/18/22 09:08 127/78 06/18/22 09:08 63 16 98 Room Air 06/18/22 09:00 61 18 96 Room Air 06/18/22 08:30 65 21 97 Room Air 06/18/22 08:01 154/96 H 06/18/22 08:01 66 17 98 Room Air 06/18/22 08:00 66 16 96 Room Air 06/18/22 07:30 60 15 96 Room Air 06/18/22 07:01 60 16 96 Room Air 06/18/22 07:01 160/116 H 06/18/22 07:00 61 18 97 Room Air 06/18/22 08:00 60 06/18/22 05:00 68 15 06/18/22 04:00 36.8 C 62 15 06/18/22 04:00 147/93 H 06/18/22 03:00 59 L 15 06/18/22 03:00 168/97 H 06/18/22 02:00 59 L 15 96 06/18/22 02:00 146/83 H 06/18/22 01:00 59 L 14 95 06/18/22 01:00 147/93 H Laboratory Results 06/18/22 06:10 06/18/22 06:10 Coding Level of Care Code 73852 SUB INP/OBS CARE 3/50MIN Diagnoses Chest pain R07.9 ST elevation IN (STEMI) I21.3 Benign essential hypertension I10 Atherogenic dyslipidemia E78.5 Coronary artery disease I25.10
[2022-06-18] MEDS ORDERED: NITROGLYCERIN SL 0.4 MG/TAB TAB SL PRN (14:05)
[2022-06-18] MEDS ORDERED: ACETAMINOPHEN 500 MG TAB PO ONE (20:32)
[2022-06-18] MEDS ORDERED: METOPROLOL TARTRATE 50 MG TAB PO SCH (21:00)
[2022-06-18] MEDS: RANOLAZINE 500 MG ER TAB PO SCH (21:13)
--- NOTE | 2022-06-18 22:35 | Electrocardiogram Report ---
Test Reason : Blood Pressure : / mmHG Vent. Rate : 057 BPM Atrial Rate : 057 BPM P-R Int : 180 ms QRS Dur : 098 ms QT Int : 436 ms P-R-T Axes : 049 048 -05 degrees QTc Int : 424 ms Sinus bradycardia Possible Left atrial enlargement Septal infarct (cited on or before 17-JUN-2022) Inferior infarct (cited on or before 17-JUN-2022) T wave abnormality, consider inferolateral ischemia Abnormal ECG When compared with ECG of 17-JUN-2022 15:21, T wave inversion more evident in Inferolateral leads Confirmed by Deven Escamilla ([id number]) on 06/18/2022 10:34:51 PM Referred By: Yared WYNN Confirmed By:Deven Escamilla
--- NOTE | 2022-06-18 22:39 | Electrocardiogram Report ---
Test Reason : Blood Pressure : / mmHG Vent. Rate : 059 BPM Atrial Rate : 059 BPM P-R Int : 172 ms QRS Dur : 096 ms QT Int : 422 ms P-R-T Axes : 054 044 -33 degrees QTc Int : 417 ms Poor data quality, interpretation may be adversely affected Sinus bradycardia Possible Left atrial enlargement Septal infarct (cited on or before 17-JUN-2022) Possible Inferior infarct (cited on or before 17-JUN-2022) T wave abnormality, consider inferolateral ischemia Abnormal ECG When compared with ECG of 17-JUN-2022 18:33, No significant change was found Confirmed by Deven Escamilla ([id number] on 06/18/2022 10:39:18 PM Referred By: Yared [facility] Confirmed By:Deven Escamilla
[2022-06-19] MEDS: AMIODARONE / D5W 360 MG/200 ML BAG IV SCH ×3 (00:23→23:17)
[2022-06-19 07:17] LABS: Hematocrit (blood only) 47.3 % (42.0-52.0); Hemoglobin 16.3 g/dl (14.0-18.0); Mean Corpuscular Hemoglobin 30.8 pg (25.0-34.0); Mean Corpuscular Hgb Conc 34.5 g/dL (32.0-36.0); Mean Corpuscular Volume 89.2 fL (80.0-100.0); Mean Platelet Volume 12.2 fL (9.4-12.4); Platelet Count 75 K/uL (130-400); RDW Standard Deviation 46.5 fL (36.4-46.3); White Blood Count 6.12 K/ul (4.8-10.8)
[2022-06-19 07:35] LABS: Albumin Level 3.4 gm/dl (3.4-5.0); BUN Creatinine Ratio 12.2 (10-20); Bilirubin,Total 0.5 mg/dl (0.2-1.0); Calcium 8.7 mg/dl (8.5-10.1); Creatinine Clr Calc Pharmacy 101.2 ml/min; Est GFR (African American) 110.6 ml/min; Est GFR (Non-African American) 95.4 ml/min; Globulin 3.5 gm/dl (2.5-4.0); Magnesium 1.9 mg/dl (1.7-2.4); Phosphorus 3.3 mg/dl (2.5-4.9); Total Protein 6.9 gm/dl (6.0-8.3)
[2022-06-19 07:36] LABS: INR 1.1 (0.9-1.1); Prothrombin Time 11.7 Seconds (9.0-12.0)
[2022-06-19] MEDS: HYDROXYCHLOROQUINE SULFATE 200 MG TAB PO SCH ×2 (08:16→20:03)
[2022-06-19] MEDS: METOPROLOL TARTRATE 50 MG TAB PO SCH ×2 (08:17→20:03)
[2022-06-19] MEDS: ISOSORBIDE MONO EXTENDED REL 30 MG TABCR PO SCH (08:17)
[2022-06-19] MEDS: CLOPIDOGREL BISULFATE 75 MG TAB PO SCH ×3 (08:18→11:01)
[2022-06-19] MEDS: ISOSORBIDE MONO EXTENDED REL 60 MG TABCR PO SCH (08:19)
[2022-06-19] MEDS: RANOLAZINE 500 MG ER TAB PO SCH ×2 (08:19→20:03)
[2022-06-19] MEDS: ATORVASTATIN 40 MG TAB PO SCH (10:58)
[2022-06-19] MEDS: ASPIRIN 325 MG ECTAB PO SCH (10:58)
[2022-06-19] MEDS: LACTULOSE SYRUP 10 GM/15 ML BTL 960 ML PO SCH ×2 (10:58→21:26)
[2022-06-19] MEDS: PANTOprazole 40 MG TAB PO SCH (10:59)
[2022-06-19] MEDS: TAMSULOSIN HCL 0.4 MG CAP PO SCH (10:59)
--- NOTE | 2022-06-19 13:59 | Hospitalist Progress Note ---
Date of Service June 19, 2022 Assessment & Plan (1) ST elevation [place] (STEMI): Plan: The patient underwent emergent left heart catheterization on June 17, and was found to have circumflex in-stent restenosis and thrombus which was treated. He did experience posttransfusion ventricular tachycardia and remains on intravenous amiodarone. Cardiac echo is pending. Appreciate cardiology consultation and management. (2) Benign essential hypertension: Plan: Stable. Continue current medical management (3) Cardiomyopathy: Plan: Hold Imdur for now per the STEMI plan (4) Atherogenic dyslipidemia: Plan: Statin therapy. Low-cholesterol diet (5) Leg length difference, acquired: Plan: Supportive care. No intervention needed at this time (6) Lupus: Plan: Stable. Continue hydroxychloroquine (7) GERD (gastroesophageal reflux disease): Plan: Treated with Pantoprazole 40 mg PO daily while admitted (8) Asthma: Plan: Stable. Continue albuterol and alvesco Plan Anticipate eventual discharge back to the detention probably tomorrow, June 20 Admission and Anticipated Discharge Date Admission Date: June 17, 2022 Subjective Alert and oriented. Asymptomatic. He remains on amiodarone infusion Review of Systems Review of Systems: Constitutional-no fever or chills ENT-no blurred vision, no double vision, no epistaxis, no sore throat Respiratory-no cough, no wheezing, no shortness of breath Cardiac-no palpitations, no chest pain, no syncope GI-no nausea, vomiting, diarrhea, melena, hematochezia -no urinary retention, no urinary incontinence, no dysuria, no hematuria Musculoskeletal-no joint pain, no muscle tenderness Skin-no bruising, no rashes, no pruritus Neuro-no isolated weakness, no paresthesia, no weakness Psych-no depression, no anxiety Physical Exam Physical Exam: General-alert and oriented x3, no fevers, no chills HEENT-head atraumatic and normocephalic, pupils equal and reactive to light, ext raocular muscles intact Neck-no lymphadenopathy or thyromegaly, trachea midline Chest-clear to auscultation percussion. No rales wheezing or rhonchi Cardiac-regular rate and rhythm, normal S1 and S2 Abdomen-normal bowel sounds, nontender, no hepatosplenomegaly Extremities-no cyanosis, clubbing, or edema Neuro-cranial nerves II through XII intact, motor and sensory function within normal limits, strength symmetrical , no focal deficits Psych-normal affect, normal mood Results & Data Results & Data ([facility]) Vital Signs (Past 12 Hours) Vital Signs Temp Pulse Pulse Resp BP Pulse Ox O2 Del Method 06/19/22 11:00 36.5 C 77 18 129/78 98 Room Air 06/19/22 08:00 66 06/19/22 08:00 36.4 C L 64 20 121/65 67 L Room Air 06/19/22 07:13 66 06/19/22 03:00 36.7 C 60 18 130/77 96 Room Air Laboratory Results 06/19/22 06:33 06/19/22 06:33 PG Care Time/CCT Total # of Minutes Spent Total Time Spent with Patient: Total time spent is greater than 50% in coordination of care (as documented) at patient's floor/unit and/or counseling patient: Coding Level of Care Code 75230 SUB INP/OBS CARE 3/50MIN Diagnoses ST elevation [place] (STEMI) I21.3 Benign essential hypertension I10 Cardiomyopathy I42.9 Atherogenic dyslipidemia E78.5 Leg length difference, acquired M21.70 Lupus M32.9 GERD (gastroesophageal reflux disease) K21.9 Asthma J45.909
[2022-06-19] MEDS ORDERED: ACETAMINOPHEN 325 MG TAB PO PRN (23:10)
[2022-06-20 00:44] LABS: Hematocrit (blood only) 43.3 % (42.0-52.0); Hemoglobin 15.2 g/dl (14.0-18.0); Mean Corpuscular Hemoglobin 31.3 pg (25.0-34.0); Mean Corpuscular Hgb Conc 35.1 g/dL (32.0-36.0); Mean Corpuscular Volume 89.1 fL (80.0-100.0); Mean Platelet Volume 11.7 fL (9.4-12.4); Platelet Count 73 K/uL (130-400); RDW Coefficient of Variation 14.1 % (11.5-14.5); RDW Standard Deviation 45.6 fL (36.4-46.3); Red Blood Count 4.86 M/uL (4.70-6.10)
[2022-06-20 00:45] LABS: Basophils # (auto) 0.02 K/uL (0-0.2); Basophils % (auto) 0.3 %; Immature Granulocytes # (auto) 0.01 K/uL (0.01-0.20); Immature Granulocytes % (auto) 0.1 %; Lymphocytes # (auto) 1.08 K/uL (1.2-3.4); Lymphocytes % (auto) 14.6 %; Monocytes # (auto) 0.71 K/uL (0.11-0.59); Monocytes % (auto) 9.6 %; Neutrophils # (auto) 5.58 K/uL (1.40-6.50); Neutrophils % (auto) 75.4 %; Platelet Estimate Decreased (Normal)
[2022-06-20 06:26] LABS: Albumin Globulin Ratio 0.9 (0.9-2); Albumin Level 3.1 gm/dl (3.4-5.0); BUN Creatinine Ratio 15.2 (10-20); Bilirubin,Total 0.7 mg/dl (0.2-1.0); Calcium 8.6 mg/dl (8.5-10.1); Creatinine Clr Calc Pharmacy 89.9 ml/min; Est GFR (African American) 103.7 ml/min; Est GFR (Non-African American) 89.5 ml/min; Globulin 3.4 gm/dl (2.5-4.0); Magnesium 1.8 mg/dl (1.7-2.4); Phosphorus 4.1 mg/dl (2.5-4.9); Potassium 3.8 mmol/L (3.5-5.1); Total Protein 6.5 gm/dl (6.0-8.3)
[2022-06-20 06:34] LABS: INR 1.2 (0.9-1.1); Prothrombin Time 12.5 Seconds (9.0-12.0)
[2022-06-20 06:35] LABS: Hematocrit (blood only) 42.2 % (42.0-52.0); Mean Corpuscular Hemoglobin 31.1 pg (25.0-34.0); Mean Corpuscular Hgb Conc 35.5 g/dL (32.0-36.0); Mean Corpuscular Volume 87.6 fL (80.0-100.0); Mean Platelet Volume 11.2 fL (9.4-12.4); Platelet Count 67 K/uL (130-400); RDW Coefficient of Variation 14.1 % (11.5-14.5); RDW Standard Deviation 45.5 fL (36.4-46.3); Red Blood Count 4.82 M/uL (4.70-6.10)
[2022-06-20] MEDS: LACTULOSE SYRUP 10 GM/15 ML BTL 960 ML PO SCH (08:24)
[2022-06-20] MEDS: PANTOprazole 40 MG TAB PO SCH (08:25)
[2022-06-20] MEDS: ISOSORBIDE MONO EXTENDED REL 60 MG TABCR PO SCH (08:25)
[2022-06-20] MEDS: TAMSULOSIN HCL 0.4 MG CAP PO SCH (08:25)
[2022-06-20] MEDS: RANOLAZINE 500 MG ER TAB PO SCH (08:25)
[2022-06-20] MEDS: ATORVASTATIN 40 MG TAB PO SCH (08:26)
[2022-06-20] MEDS: HYDROXYCHLOROQUINE SULFATE 200 MG TAB PO SCH (08:26)
[2022-06-20] MEDS: ASPIRIN 325 MG ECTAB PO SCH (08:26)
[2022-06-20] MEDS: ISOSORBIDE MONO EXTENDED REL 30 MG TABCR PO SCH (08:26)
[2022-06-20] MEDS: CLOPIDOGREL BISULFATE 75 MG TAB PO SCH (08:26)
--- NOTE | 2022-06-20 08:57 | XCELERA ---
[id number]
[2022-06-20] MEDS: METOPROLOL TARTRATE 50 MG TAB PO SCH (09:08)
--- NOTE | 2022-06-20 09:16 | Hospitalist Progress Note ---
Date of Service June 20, 2022 Assessment & Plan (1) ST elevation [place] (STEMI): Plan: The patient underwent emergent left heart catheterization on June 17, and was found to have circumflex in-stent restenosis and thrombus which was treated. He did experience posttransfusion ventricular tachycardia and was on amiodraone gtt, since discontinue overnight. Cardiac echo 06/19 with low normal EF 50-55%. Appreciate Cardiology consultation and management. Continue aspirin 81mg daily, Plavix, beta rey, Ranexa, statin. (2) Benign essential hypertension: Plan: Stable. Continue current medical management (3) Cardiomyopathy: Plan: Resume isosorbide mononitrate. (4) Atherogenic dyslipidemia: Plan: Statin therapy. Low-cholesterol diet (5) Leg length difference, acquired: Plan: Supportive care. No intervention needed at this time (6) Lupus: Plan: Stable. Continue hydroxychloroquine (7) GERD (gastroesophageal reflux disease): Plan: Treated with Pantoprazole 40 mg PO daily while admitted (8) Asthma: Plan: Stable. Continue albuterol and alvesco Plan Anticipate eventual discharge back to the skilled nursing probably tomorrow, June 20 Admission and Anticipated Discharge Date Admission Date: June 17, 2022 Results & Data Results & Data ([facility]) Vital Signs (Past 12 Hours) Vital Signs Temp Pulse Pulse Resp BP Pulse Ox O2 Del Method 06/20/22 07:29 36.6 C 69 18 127/75 98 Room Air 06/20/22 03:33 36.6 C 68 18 115/69 98 Room Air 06/19/22 22:00 86 06/20/22 00:36 37.6 C H 06/19/22 23:00 38.4 C H 92 H 17 138/84 96 Room Air PG Care Time/CCT Total # of Minutes Spent Total Time Spent with Patient: Total time spent is greater than 50% in coordination of care (as documented) at patient's floor/unit and/or counseling patient: Coding Diagnoses ST elevation [place] (STEMI) I21.3 Benign essential hypertension I10 Cardiomyopathy I42.9 Atherogenic dyslipidemia E78.5 Leg length difference, acquired M21.70 Lupus M32.9 GERD (gastroesophageal reflux disease) K21.9 Asthma J45.909
--- NOTE | 2022-06-20 15:30 | Discharge Summary ---
Discharge Summary Date of Service June 20, 2022 Admission HPI Per Admitting Provider Bartolo is a 61 year old male inmate of [facility] with a PMH significant for CAD S/P CABG in 2006, PCI in 2010 as well as 2016, asthma, hyperlipidemia, HTN, cardiomyopathy, Lupus, asthma, chronic constipation, GERD, and previous crush injury to the left leg with S/P fusion of the left lower extrmity with chronic limb length discrepancy who presented to the [facility] ED on 06/17/22 with a chief complaint of chest pain starting at 0300 this morning. In the ED that patient was found to be afebrile, hemodynamically stable, and stable on RA. Labs were remarkable for a WBC WNL, stable Hgb at 14.5, thrombocytopenia of 91 (improved compared to 80 as of 03/04/23), stable cr of 0.93, stable electrolytes, MRSA swab and acute hepatitis panels pending, first high sensitivity trop of 301, [place] [address]. Chest xray was read as "Cardiomegaly with prominence of the pulmonary vasculature. Correlate clinical history for evidence of fluid overload/mild congestive change.". His initial ECG and troponin were negative but repeat ECGs demonstrated evidence of acute ST elevation SD with ST elevations inferiorly and reciprocal ST depressions in lateral leads I and aVF; repeat troponin was elevated at 301. The patient was placed on a heparin drip by the ED until he was taken to the label designer. The patient was evaluated by Dr. Hanna of Cardiology and the patient was taken emergently to the bolt labeler. The patient was found to have "In-stent restenosis with acute stent thrombosis of the circumflex. Status post PCI with implantation of an overlapped drug-eluting stent.". The patient was evaluated in the ICU after his cardiac catheterization and was lying in bed comfortably in no acute distress. He currently feel well after the procedure and has no current complaints, he was able to eat lunch prior to my arrival without issue. He states that he started to develop substernal/right chest pain at approximately 0300 this am. He took two nitroglycerine tabs and use an albuterol treatment without resolution of his symptoms. He uses a third nitro tab with slight improvement of his symptoms. At approximately 0800 his symptoms progressed and this is when he sought out the [facility] staff and was brought to the ED. He confirmed that he took all of his am medications prior to coming to the ED. After confirming his med rec from the snf he is no longer on Hydrochlorothiazide and Acitretin. He confirms that he has chronic chest pain which is typically on the right side of his chest, which is currently at it's baseline during my exam. We discussed code status, he wishes to be a full code. He currently denies fever, chills, changes in vision, hearing, taste, and smell, new/worsening chest pain, SOB, abdominal pain, nausea, vomiting, diarrhea, dysu shady, hematuria, and recent trauma. Admission Exam Per Admitting Provider General: In no acute distress, stated age, chronically ill-appearing HEENT: Normocephalic, atraumatic, no scleral icterus, pupils around round, symmetrical, and reactive to light, moist mucus membranes, trachea midline, no thyromegaly Chest/Pulm: No respiratory distress, symmetrical chest expansion, expiratory wheezing noted in the upper lung landis Cardiac: RRR, no murmurs noted Abdomen: Negative for ascites and bruising, patient with known abdominal hernia located in the central abdomen which is non-tender and easily reduces, normoactive bowel sounds, soft, non-tender to palpation throughout Musculoskeletal: Patient currently with upper extremities secured to the bed with handcuffs without signs of acute trauma, LLE chronically shortened and without movement due to prior procedures, RLE with intact sensation and ROM Extremities: Radial, dorsalis pedis, and posterior tibial pulses are intact and symmetrical, signs of chronic PAD in the BL LE's, no LE edema noted Skin: Warm, dry, no rashes , lesions, or scars noted Neuro: Alert and oriented to person, place, month, year, and president, no focal defects, CN II-XII tested and intact, no tremors noted Psych: No acute distress, calm and cooperative during the exam Principal Dx & Hospital Course #1 = Principal Diagnosis (1) ST elevation SD (STEMI): (2) Benign essential hypertension: (3) Cardiomyopathy: (4) Atherogenic dyslipidemia: (5) Lupus: (6) GERD (gastroesophageal reflux disease): (7) Asthma: Plan ST elevation SD (STEMI), cardiomyopathy: The patient underwent emergent left heart catheterization on June 17 for STEMI, and was found to have circumflex in-stent restenosis and thrombus which was treated. He did experience posttransfusion NSVT and was on amiodarone gtt, since discontinued overnight without further episodes of VTach. Echo 06/19 with low normal EF 50-55%. Continue aspirin 81mg daily, Plavix, amlodipine, Imdur, beta rey, Ranexa, statin. Follow up outpatient with Cardiology. Benign essential hypertension: Continue current medical management. BP 134/78 on day of discharge. Atherogenic dyslipidemia: Continue statin therapy. Low-cholesterol diet. Lupus: Continue hydroxychloroquine. GERD (gastroesophageal reflux disease): PPI such as pantoprazole per primary provider for GERD. Asthma: Stable. Continue albuterol and Alvesco. Discharge Exam Constitutional well developed well nourished in NAD Respiratory lungs CTA bilaterally, good respiratory effort, sat. 96% on RA Cardiovascular heart RRR no murmurs, no peripheral edema Gastrointestinal (Abdomen) soft NTND Skin right groin cath site without hematoma, no purulent drainage, dressing clean and dry Updated Medication List Medication Instructions Recorded Confirmed Type rosuvastatin 40 mg tablet 40 mg PO HS 03/21/18 06/17/22 History nitroglycerin 0.4 mg sublingual 0.4 mg sublingual Q5M PRN chest 12/10/18 06/17/22 History tablet pain ranolazine 500 mg tablet,extended 500 mg PO BID #60 tabs 12/10/18 06/17/22 Hist ory release,12 hr metoprolol tartrate 50 mg tablet 50 mg PO BID 12/20/18 06/17/22 History ciclesonide 80 mcg/actuation 1 puff inhalation BID 03/10/21 06/17/22 History aerosol inhaler (Alvesco) tamsulosin 0.4 mg capsule (Flomax) 0.4 mg PO QAM 03/10/21 06/17/22 History isosorbide mononitrate 30 mg 30 mg PO QAM 06/03/21 06/17/22 History tablet,extended release 24 hr isosorbide mononitrate 60 mg 60 mg PO QAM 06/03/21 06/17/22 History tablet,extended release 24 hr albuterol sulfate 90 mcg/actuation 2 puff inhalation QID PRN 09/01/21 06/17/22 History aerosol inhaler Shortness Of Breath amlodipine 2.5 mg tablet 2.5 mg PO QAM 09/01/21 06/17/22 History bromfenac 0.07 % eye drops 1 drp ophthalmic (eye) DAILY 02/02/22 06/17/22 History (Prolensa) clobetasol 0.05 % topical foam 1 applic topical DAILY 02/02/22 06/17/22 History difluprednate 0.05 % eye drops 1 drp ophthalmic (eye) BID 02/02/22 06/17/22 History (Durezol) lactulose 10 gram/15 mL oral 15 ml PO BID 02/02/22 06/17/22 History solution tetrahydrozoline 0.05 % eye drops 1 drp ophthalmic (eye) BID 02/02/22 06/17/22 History (Visine) acetaminophen 300 mg-codeine 30 mg 1 tab PO BID 02/25/22 06/17/22 History tablet hydroxychloroquine 200 mg tablet 200 mg PO BID 02/25/22 06/17/22 History clopidogrel 75 mg tablet 75 mg PO QAM Previously on this 03/04/22 06/17/22 Rx med for cardiac hist 6 months #180 tabs naproxen 500 mg tablet 500 mg PO BID post op pain and 03/04/22 06/17/22 Rx inflammation relief 30 days #60 tabs aspirin 81 mg tablet,delayed 81 mg PO QAM #30 tabs 06/20/22 Rx release Hospital Stay Data Consultations 06/17/22 14:53 Consult Cardiology Routine Procedures Performed Operation Date: 06/17/22 12:45 Actual Procedures p Cineradiography w/Routine Exam - Carlos Kelly MD, PhD p Cath, Cors with Grafts (no LV) - Carlos Kelly MD, PhD s Drug Eluting Stent SGl Vessel - Carlos Kelly MD, PhD s Ultrasound Vascular Access - Carlos Kelly MD, PhD Diagnostic Imagining Performed 06/17/22 12:47 CL Cath Imgs for PACS use only Stat Pending Results Patient Have Any Pending Studies at Discharge: No Discharge Instructions Given to Patient (Per Discharging Provider) ACTIVITY RECOMMENDATIONS: It is common to feel weak and fatigue for a few days. * Do not drive or operate any motorized equipment for the next three days. * Limit stair usage (2 or 3 trips a day only) for the next three days. * Do not lift anything heavier than 10 pounds for the next three days. * Do not engage in vigorous exercise or any sports for the next five days. * You may shower the day after your procedure, but do not immerse the area for three days. Cleanse the site gently with soap and water. SPECIAL CARE INSTRUCTIONS: * You may replace the pressure dressing or band-aid the morning after the procedure. * After your procedure, it is normal to have a small bruise or small lump at the site. Examine your site daily for any change in the bruise or lump, redness, swelling, drainage or numbness. Notify your doctor if any change. BLEEDING: * If there is a small amount of bleeding at the site, lie down and apply firm pressure with a clean cloth for ten minutes. When the bleeding stops, lie quietly keeping the procedure limb straight for six hours. Notify your doctor as soon as possible. * If the bleeding does not stop after ten minutes or if there is a large amount of bleeding or spurting, call 911 immediately. Continue to lie down and hold firm pressure until help arrives. SKIN IRRITATION: * You may experience some redness and/or swelling in the area where radiation was administered. If any skin irritation occurs, please contact your family physician. FOLLOW UP VISIT: Keep any scheduled doctor appointments. Total Time Total Time Spent Total Time Spent (In Minutes): 45 minutes Coding Level of Care Code HOSP INP/OBS DISCH >[address] elevation SD (STEMI) I21.3 Benign essential hypertension I10 Cardiomyopathy I42.9 Atherogenic dyslipidemia E78.5 Lupus M32.9 GERD (gastroesophageal reflux disease) K21.9 Asthma J45.909
[2022-06-21] MEDS ORDERED: ROSUVASTATIN CALCIUM 20 MG TAB PO SCH (09:00)
[2022-06-21] MEDS ORDERED: ASPIRIN 81 MG ECTAB PO SCH (09:00)
== END 2022-06-20 17:52 | DRG 247 ==
LOC: ED 11:23 → SUATTDRO 14:08 → 1E 14:08 → 2S 06-18 14:11
PROC: CLB.CCG (2022-06-17 12:45)

== ENCOUNTER 2024-03-22 09:42 | Observation (INO) ==
--- NOTE | 2024-03-22 10:05 | Emergency Department Note ---
Impression & Plan Chest pain ED Provider Note HISTORY OF PRESENT ILLNESS: Patient is a 63-year-old male presenting with chest pain. Patient reports that he has been having intermittent episodes of chest pain located on the left side of his chest since waking up this morning. He says the pain last for few seconds to minutes at a time and then goes away. He currently is chest pain- free. He states that he has a history of multiple heart attacks and has stents in place. He is on aspirin and Plavix daily. He was given 2 nitroglycerin with reported little relief in his symptoms prehospital. He was sent by the half-way due to concern for "septal infarct" on his EKG. Patient is chest pain-free on my assessment in the emergency department. He denies any associated shortness of breath. Denies any nausea or vomiting. He reports his last stent was a number of years ago. ROS: as above PHYSICAL EXAM: Constitutional: Patient appears in no acute distress. HENT: Head: Normocephalic and atraumatic. Eyes: EOMI, PERRL Mouth/Throat: Mucous membranes moist. Neck: Trachea midline. Neck supple. Cardiovascular: RRR, No murmurs, rubs or gallops. Intact distal pulses. Pulmonary/Chest: No respiratory distress. Breath sounds clear and equal bilaterally. No wheezes or rales. Abdominal: Abdomen soft, no tenderness, rebound or guarding. Musculoskeletal: No edema, tenderness or deformity noted. Skin: Warm and dry. No rash, erythema, pallor or cyanosis Psychiatric: Appropriate mood and affect for situation. Neurological: Alert and keenly responsive. CN II-XII grossly intact, moving all extremities equally and fully. MDM: - Vitals signs showed hypertension and bradycardia - History obtained via patient. History as above. - Chronic conditions affecting care: CAD (S/p PCI and CABG); HTN; HLD; cardiomyopathy; lupus; asthma; GERD - Differential diagnoses include, but are not limited to: Acute coronary syndrome; pulmonary embolism; dissection; tension pneumothorax; esophageal rupture; pneumonia - Order placed for continuous cardiac monitoring. At this time, monitor showed rate of 55 BPM with normal sinus rhythm, per my interpretation. - External medical records reviewed. Discharge summary dated 06/20/2022. Patient was admitted for a STEMI at the time. - EKG interpreted by myself showed normal sinus rhythm. Rate 60 bpm. QT 424. No acute ischemic changes, but is noted to have some slight ST elevations in V2 and V3 without any obvious reciprocal changes. - Laboratory workup interpreted by myself showed leukopenia (WBC 3.70); thrombocytopenia (plt 86); normal electrolytes; normal troponin; elevated BNP (576); normal lipase - CXR negative for pneumonia, per my interpretation. - HEART score 5 (History +1 moderately suspicious; EKG +1; Age +1; Risk factors +2; Initial troponin +0), amounting to a moderate score. - Discussion was had with case monitor about patient's case and need for admission - Hospitalist, Dr. Wray, consulted for admission - [facility] ASSESSMENT AND PLAN: Diagnosis: chest pain Plan: admit Past Med/Surg History Problem List (Updated 03/22/24 @ 11:32 by Tami Malcolm MD) Chest pain (Acute) Chronic venous insufficiency Leg length difference, acquired Lupus GERD (gastroesophageal reflux disease) Asthma Atherogenic dyslipidemia Benign essential hypertension ST elevation VT (STEMI) (Acute) S/P total hip arthroplasty Cardiomyopathy Valvular heart disease Hyperlipidemia Coronary artery disease (Acute) Encounter for pre-operative examination Encounter for pre-operative examination Avascular necrosis of bone of right hip Medical History (Updated 03/22/24 @ 11:32 by Tami Malcolm MD) Osteoarthritis Myocardial Infarction multiple (2002/2004?/2010/2015) Per cardiology note: "first VT in 2002 while living in [place]. He cannot recall what hospital he went to. In 2004 to 2006 he had another myocardial infarction in [place] and underwent CABG x 2 and PCI x 2. In 2010 while being arrested, he had another myocardial infarction and went to [facility] and underwent PCI. In 2015 while incarcerated in [facility], he went to [facility] for another myocardial infarction and underwent PCI" Hyperlipidemia Inmate in correctional facility [facility] Hypertension CAD (coronary artery disease) Hx remote stents/CABG Hx of glaucoma Surgical History History of bilateral cataract extraction History of right hip replacement History of cardiac cath Multiple, most recent 08/2021 ([place]) History of coronary artery bypass graft ~2004 History of heart artery stent 2002 x 4 STENTS History of open reduction and internal fixation (ORIF) procedure LE Family History Other Family history unknown Social History Smoking Status: Never smoker Second Hand Exposure: No; Do You Dip or Chew Tobacco: No; Hx Alcohol Use: No Hx Substance Use: No Preferred Language: Belizean Communication Ability: Effective Geology Instructor Required: No Beliefs That Will Affect Care: None Current Living Situation: Other Current Living Situation Comment: [facility] Feels Safe at Home: Yes Assistive Devices: Cane Allergies Allergies Allergy/AdvReac Type Severity Reaction Status Date / Time losartan [From Cozaar] Allergy Unknown Unknown Verified 07/18/23 09:59 sulfamethoxazole Allergy Unknown Unknown Verified 07/18/23 09:59 [From Bactrim] trimethoprim [From Bactrim] Allergy Unknown Unknown Verified 07/18/23 09:59 Home Meds Home Medications Medication Instructions Recorded Confirmed rosuvastatin 40 mg tablet 40 mg PO HS 03/21/18 07/18/23 nitroglycerin 0.4 mg sublingual 0.4 mg sublingual Q5M PRN chest 12/10/18 07/18/23 tablet pain ranolazine 500 mg tablet,extended 500 mg PO BID #60 tabs 12/10/18 07/18/23 release,12 hr metoprolol tartrate 50 mg tablet 50 mg PO BID 12/20/18 07/18/23 ciclesonide 80 mcg/actuation 1 puff inhalation BID 03/10/21 07/18/23 aerosol inhaler (Alvesco) tamsulosin 0.4 mg capsule (Flomax) 0.4 mg PO QAM 03/10/21 07/18/23 isosorbide mononitrate 30 mg 30 mg PO QAM 06/03/21 07/18/23 tablet,extended release 24 hr isosorbide mononitrate 60 mg 60 mg PO QAM 06/03/21 07/18/23 tablet,extended release 24 hr albuterol sulfate 90 mcg/actuation 2 puff inhalation QID PRN 09/01/21 07/18/23 aerosol inhaler Shortness Of Breath amlodipine 2.5 mg tablet 2.5 mg PO QAM 09/01/21 07/18/23 bromfenac 0.07 % eye drops 1 drp ophthalmic (eye) DAILY 02/02/22 07/18/23 (Prolensa) clobetasol 0.05 % topical foam 1 applic topical DAILY 02/02/22 07/18/23 difluprednate 0.05 % eye drops 1 drp ophthalmic (eye) BID 02/02/22 07/18/23 (Durezol) lactulose 10 gram/15 mL oral 15 ml PO BID 02/02/22 07/18/23 solution tetrahydrozoline 0.05 % eye drops 1 drp ophthalmic (eye) BID 02/02/22 07/18/23 (Visine) acetaminophen 300 mg-codeine 30 mg 1 tab PO BID 02/25/22 07/18/23 tablet hydroxychloroquine 200 mg tablet 200 mg PO BID 02/25/22 07/18/23 acitretin 10 mg capsule 10 mg PO DAILY 04/10/23 07/18/23 clopidogrel 75 mg tablet 75 mg PO DAILY 04/10/23 07/18/23 diphenhydramine HCl 25 mg capsule 25 mg PO BID 04/10/23 07/18/23 (Benadryl) pantoprazole 20 mg tablet,delayed 20 mg PO DAILY 04/10/23 07/18/23 release Previous Rx's Medication Instructions Recorded naproxen 500 mg tablet 500 mg PO BID post op pain and 03/04/22 inflammation relief 30 days #60 tabs aspirin 81 mg tablet,delayed 81 mg PO QAM #30 tabs 06/20/22 release Results & Data (ED) Vital Signs Vital Signs - 24 hr 03/22/24 09:47 03/22/24 09:47 03/22/24 09:47 Temperature 36.7 C Temperature Source Oral Pulse Rate 60 Pulse Rate [Apical] 60 Pulse Rate from SpO2 Sensor Pulse Rhythm Regular Pulse Rhythm [Apical] Regular Pulse Strength Normal Pulse Strength [Apical] Normal Respiratory Rate 20 20 Respiratory Effort / Characteristics Non-Labored Non-Labored Respiratory Depth Normal Normal Respiratory Pattern Regular Regular Blood Pressure 157/87 H Blood Pressure [Right Arm] 157/87 H Blood Pressure Mean 110 Blood Pressure Mean [Right Arm] 110 Blood Pressure Position Lying Blood Pressure Position [Right Arm] Lying Pulse Oximetry 98 98 Oxygen Delivery Method Room Air Room Air Room Air Sepsis Recent Fever Within 48 Hours No Sepsis New/Unexplained Change in Mental Status No Sepsis Action Taken by Nursing No Action Required 03/22/24 09:47 03/22/24 10:00 03/22/24 10:00 Temperature Temperature Source Pulse Rate 60 57 L 58 L Pulse Rate [Apical] Pulse Rate from SpO2 Sensor 54 L Pulse Rhythm Regular Pulse Rhythm [Apical] Pulse Strength Pulse Strength [Apical] Respiratory Rate 20 18 Respiratory Effort / Characteristics Respiratory Depth Respiratory Pattern Blood Pressure 106/68 Blood Pressure [Right Arm] Blood Pressure Mean 80 Blood Pressure Mean [Right Arm] Blood Pressure Position Blood Pressure Position [Right Arm] Pulse Oximetry 98 98 Oxygen Delivery Method Room Air Room Air Sepsis Recent Fever Within 48 Hours Sepsis New/Unexplained Change in Mental Status Sepsis Action Taken by Nursing 03/22/24 10:15 03/22/24 10:30 03/22/24 11:01 Temperature Temperature Source Pulse Rate 57 L 57 L 55 L Pulse Rate [Apical] Pulse Rate from SpO2 Sensor 57 L 56 L 55 L Pulse Rhythm Pulse Rhythm [Apical] Pulse Strength Pulse Strength [Apical] Respiratory Rate 19 16 16 Respiratory Effort / Characteristics Respiratory Depth Respiratory Pattern Blood Pressure 106/68 115/69 124/87 Blood Pressure [Right Arm] Blood Pressure Mean 80 86 101 Blood Pressure Mean [Right Arm] Blood Pressure Position Blood Pressure Position [Right Arm] Pulse Oximetry 97 96 97 Oxygen Delivery Method Room Air Sepsis Recent Fever Within 48 Hours Sepsis New/Unexplained Change in Mental Status Sepsis Action Taken by Nursing Laboratory Data 03/22/24 09:55 03/22/24 09:55 Lab Results 03/22/24 Range/Units 09:55 WBC 3.70 L (4.8-10.8) K/ul RBC 4.98 (4.70-6.10) M/uL Hgb 15.1 (14.0-18.0) g/dl Hct 44.9 (42.0-52.0) % MCV 90.2 (80.0-100.0) fL MCH 30.3 (25.0-34.0) pg MCHC 33.6 (32.0-36.0) g/dL RDW Std Deviation 49.4 H (36.4-46.3) fL RDW Coeff of Ifeanyi 14.8 H (11.5-14.5) % Plt Count 86 L (130-400) K/uL MPV 11.6 (9.4-12.4) fL Immature Gran % (Auto) 0.0 % Neut % (Auto) 39.8 % Lymph % (Auto) 42.4 % Sutton % (Auto) 14.3 % Eos % (Auto) 3.0 % Baso % (Auto) 0.5 % Neut # (Auto) 1.47 (1.40-6.50) K/uL Lymph # (Auto) 1.57 (1.20-3.40) K/uL Sutton # (Auto) 0.53 (0.11-0.59) K/uL Eos # (Auto) 0.11 (0.00-0.50) K/uL Baso # (Auto) 0.02 (0.00-0.20) K/uL Immature Gran # (Auto) 0.00 L (0.01-0.20) K/uL PT 11.4 (9.0-12.0) Seconds INR 1.1 (0.9-1.1) Sodium 140 (136-145) mmol/L Potassium 4.1 (3.5-5.1) mmol/L Chloride 107 (98-107) mmol/L Carbon Dioxide 29 (21-32) mmol/L Anion Gap 4 (3-11) BUN 9 (6-23) mg/dl Creatinine 0.91 (0.6-1.4) mg/dl Est Cr Clr Drug Dosing 91.6 ml/min eGFR 94.70 BUN/Creatinine Ratio 9.9 L (10-20) Glucose 73 (70-99(Fasting)) mg/dl Calcium 9.5 (8.6-10.3) mg/dl Total Bilirubin 0.6 (0.2-1.0) mg/dl AST 27 (13-39) U/L ALT 17 (7-52) U/L Alkaline Phosphatase 41 (34-104) U/L Troponin I High Sens 8.4 (0-20) pg/ml B-Natriuretic Peptide 579 H (0-100) pg/ml Total Protein 6.9 (6.0-8.3) gm/dl Albumin 4.0 (3.4-5.0) gm/dl Globulin 2.9 (2.5-4.0) gm/dl Albumin/Globulin Ratio 1.4 (0.9-2) Lipase 51 (11-82) U/L Imaging Data Radiologist's Impression: Chest X-Ray 03/22/24 09:47 XR chest 1V portable CLINICAL HISTORY: Chest pain, nonspecific COMPARISON STUDY: Chest radiograph June 17, 2022. FINDINGS: There is no pneumothorax. No definite pleural effusions. Moderate cardiomegaly is unchanged. Pulmonary vascular congestion is similar to prior exam. There is mild left basilar opacity. IMPRESSION: 1. Cardiomegaly with pulmonary vascular congestion. 2. Mild left basilar opacity. Atelectasis is favored although pneumonia could appear similar. Radiographic follow-up is recommended. ACT 112: Negative or not required by law. Electronically signed by: Matt Carvalho M.D. 03/22/2024 10:16 AM Discharge Plan Visit Data Chief Complaint: Chest Pain Stated Complaint: CHEST PAIN ED Provider: Tami Malcolm Discharge Problem: Chest pain Forms Stand Alone Forms: [facility] Prescriptions Prescriptions: No Action tetrahydrozoline [Visine] 0.05 % drops 1 drp ophthalmic (eye) BID difluprednate [Durezol] 0.05 % drops 1 drp ophthalmic (eye) BID Rx Instructions: start on Day 15 of therapy Prolensa 0.07 % drops 1 drp ophthalmic (eye) DAILY Rx Instructions: administer on day before procedure/surgery lactulose 10 gram/15 mL solution 15 ml PO BID clobetasol 0.05 % foam 1 applic topical DAILY ranolazine 500 mg tablet extended release 12 hr 500 mg PO BID Qty: 60 metoprolol tartrate 50 mg tablet 50 mg PO BID Patient Comments: 50 mg PO ; clopidogrel 75 mg tablet 75 mg PO DAILY diphenhydramine HCl [Benadryl] 25 mg capsule 25 mg PO BID acitretin 10 mg capsule 10 mg PO DAILY pantoprazole 20 mg tablet,delayed release (DR/EC) 20 mg PO DAILY rosuvastatin 40 mg Tablet 40 mg PO HS nitroglycerin 0.4 mg tablet, sublingual 0.4 mg sublingual Q5M PRN (Reason: chest pain) Patient Comments: PLACE ONE TABLET UNDER TONGUE EVERY 5 MINUTES FOR UP TO 3 DOSES IF NEEDED FOR CHEST PAIN. tamsulosin [Flomax] 0.4 mg Capsule 0.4 mg PO QAM Alvesco 80 mcg/actuation Hfa Aerosol Inhaler 1 puff INHALATION BID isosorbide mononitrate 30 mg Tablet Extended Release 24 Hr 30 mg PO QAM isosorbide mononitrate 60 mg Tablet Extended Release 24 Hr 60 mg PO QAM amlodipine 2.5 mg Tablet 2.5 mg PO QAM albuterol sulfate 90 mcg/actuation Hfa Aerosol Inhaler 2 puff INHALATION QID PRN (Reason: Shortness Of Breath) acetaminophen-codeine 300-30 mg Tablet 1 tab PO BID hydroxychloroquine 200 mg Tablet 200 mg PO BID naproxen 500 mg tablet 500 mg PO BID 30 Days Qty: 60 1RF aspirin 81 mg Tablet,Delayed Release (Dr/Ec) 81 mg PO QAM Qty: 30 0RF Referrals Referrals: Kelsey Cesar, PAChristopherC [Physician Ski Top Trimmer] -
--- NOTE | 2024-03-22 10:17 | XRay Report ---
XR chest 1V portable CLINICAL HISTORY: Chest pain, nonspecific COMPARISON STUDY: Chest radiograph June 17, 2022. FINDINGS: There is no pneumothorax. No definite pleural effusions. Moderate cardiomegaly is unchanged . Pulmonary vascular congestion is similar to prior exam. There is mild left basilar opacity. IMPRESSION: 1. Cardiomegaly with pulmonary vascular congestion. 2. Mild left basilar opacity. Atelectasis is favored although pneumonia could appear similar. Radiogr aphic follow-up is recommended. ACT 112: Negative or not required by law. Electronically signed by: Matt Carvalho M.D. 03/22/2024 10:16 AM
[2024-03-22 10:19] LABS: Basophils # (auto) 0.02 K/uL (0.00-0.20); Basophils % (auto) 0.5 %; Eosinophils # (auto) 0.11 K/uL (0.00-0.50); Hematocrit (blood only) 44.9 % (42.0-52.0); Hemoglobin 15.1 g/dl (14.0-18.0); Lymphocytes # (auto) 1.57 K/uL (1.20-3.40); Lymphocytes % (auto) 42.4 %; Mean Corpuscular Hemoglobin 30.3 pg (25.0-34.0); Mean Corpuscular Hgb Conc 33.6 g/dL (32.0-36.0); Mean Corpuscular Volume 90.2 fL (80.0-100.0); Mean Platelet Volume 11.6 fL (9.4-12.4); Monocytes # (auto) 0.53 K/uL (0.11-0.59); Monocytes % (auto) 14.3 %; Neutrophils # (auto) 1.47 K/uL (1.40-6.50); Neutrophils % (auto) 39.8 %; Platelet Count 86 K/uL (130-400); RDW Coefficient of Variation 14.8 % (11.5-14.5); RDW Standard Deviation 49.4 fL (36.4-46.3); Red Blood Count 4.98 M/uL (4.70-6.10)
[2024-03-22 10:29] LABS: Albumin Globulin Ratio 1.4 (0.9-2); BUN Creatinine Ratio 9.9 (10-20); Bilirubin,Total 0.6 mg/dl (0.2-1.0); Calcium 9.5 mg/dl (8.6-10.3); Creatinine Clr Calc Pharmacy 91.6 ml/min; Globulin 2.9 gm/dl (2.5-4.0); Potassium 4.1 mmol/L (3.5-5.1); Total Protein 6.9 gm/dl (6.0-8.3)
[2024-03-22 10:34] LABS: Troponin I High Sensitivity 8.4 pg/ml (0-20)
[2024-03-22 10:36] LABS: INR 1.1 (0.9-1.1); Prothrombin Time 11.4 Seconds (9.0-12.0)
--- NOTE | 2024-03-22 12:12 | History & Physical Report ---
Date of Service March 22, 2024 Assessment & Plan (1) Chest pain, rule out acute myocardial infarction: Plan: ST elevation in anterior leads however without reciprocal changes. High risk history although he feels chest pain is different from prior heart attacks. Second troponin pending Discussed with Dr Francis and will hold off heart alert pending cardiology evaluation, TTE and repeat troponin - requested starting on IV heparin Ongoing 3-4/10 chest pain, additional nitroglycerin 0.4mg SL ordered, will consider nitroglycerin IV pending further workup and response of chest pain ASA 243mg PO (already had 81mg this morning) (2) CAD (coronary artery disease): Plan: History of CABG and stents Continue ASA, clopidogrel, metoprolol, ISMN, ranolazine, rosuvastatin (3) GERD (gastroesophageal reflux disease): Plan: Continue pantoprazole (4) Asthma: Plan: Continue Alvesco or hospital formulary equivalent (5) Lupus: Plan: Continue hydroxychloroquine Plan HTN - no change to chronic medications VTE Prophylaxis - IV heparin Diet - NPO Disposition - pending cardiology evaluation Admission and Anticipated Discharge Date Admission Date: March 22, 2024 History of Present Illness Chief Complaint: Chest pain Primary Care Provider: [facility] Bartolo Roy is a 63 year old male with history of severe coronary artery disease who presents to ER with intermittent chest pain. He reports this feels different to his prior heart attack chest pain. Intermittent. Started this morning. No radiation. Substernal pressure. No associated shortness of breath, nausea or diaphoresis. No improvement with nitroglycerin. EKG from senior living concerning for "septal infarct" therefore he was sent to the ER for further evaluation. EKG here concerning for ST elevations in the anterior leads which appears new since last EKG but has been present on prior EKGs with no reciprocal changes. EKG discussed with Dr Kelly and planning on IV heparin, stat TTE and repeat troponin (initial was normal) prior to decision regarding cardiac catheterization. Allergies Allergy/AdvReac Type Severity Reaction Status Date / Time losartan [From Cozaar] Allergy Unknown Unknown Verified 07/18/23 09:59 sulfamethoxazole Allergy Unknown Unknown Verified 07/18/23 09:59 [From Bactrim] trimethoprim [From Bactrim] Allergy Unknown Unknown Verified 07/18/23 09:59 Home Medications Medication Instructions Recorded Confirmed Type rosuvastatin 40 mg tablet 40 mg PO HS 03/21/18 03/22/24 History nitroglycerin 0.4 mg sublingual 0.4 mg sublingual Q5M PRN chest 12/10/18 03/22/24 History tablet pain ranolazine 500 mg tablet,extended 500 mg PO BID #60 tabs 12/10/18 03/22/24 History release,12 hr metoprolol tartrate 50 mg tablet 50 mg PO BID 12/20/18 03/22/24 History ciclesonide 80 mcg/actuation 1 puff inhalation BID 03/10/21 03/22/24 History aerosol inhaler (Alvesco) tamsulosin 0.4 mg capsule (Flomax) 0.4 mg PO QAM 03/10/21 03/22/24 History isosorbide mononitrate 30 mg 30 mg PO QAM 06/03/21 03/22/24 History tablet,extended release 24 hr isosorbide mononitrate 60 mg 60 mg PO QAM 06/03/21 03/22/24 History tablet,extended release 24 hr albuterol sulfate 90 mcg/actuation 2 puff inhalation QID PRN 09/01/21 03/22/24 History aerosol inhaler Shortness Of Breath amlodipine 2.5 mg tablet 2.5 mg PO QAM 09/01/21 03/22/24 History lactulose 10 gram/15 mL oral 15 ml PO BID 02/02/22 03/22/24 History solution tetrahydrozoline 0.05 % eye drops 1 drp ophthalmic (eye) BID 02/02/22 03/22/24 History (Visine) hydroxychloroquine 200 mg tablet 200 mg PO BID 02/25/22 03/22/24 History aspirin 81 mg tablet,delayed 81 mg PO QAM #30 tabs 06/20/22 03/22/24 Rx release acitretin 10 mg capsule 10 mg PO DAILY 04/10/23 03/22/24 History clopidogrel 75 mg tablet 75 mg PO DAILY 04/10/23 03/22/24 History pantoprazole 20 mg tablet,delayed 20 mg PO DAILY 04/10/23 03/22/24 History release colchicine 0.6 mg capsule 0.6 mg PO DAILY 03/22/24 03/22/24 History dapagliflozin propanediol 10 mg 10 mg PO DAILY 03/22/24 03/22/24 History tablet (Farxiga) hydralazine 10 mg tablet 10 mg PO BID 03/22/24 03/22/24 History Past Med/Surg History Problem List (Updated 03/23/24 @ 06:12 by Vince Wray MD) Chest pain, rule out acute myocardial infarction Chest pain (Acute) Chronic venous insufficiency Leg length difference, acquired Lupus GERD (gastroesophageal reflux disease) Asthma Atherogenic dyslipidemia Benign essential hypertension ST elevation NJ (STEMI) (Acute) S/P total hip arthroplasty Cardiomyopathy Valvular heart disease Hyperlipidemia Coronary artery disease (Acute) Avascular necrosis of bone of right hip Medical History Osteoarthritis Myocardial Infarction multiple (2002/2004?/2010/2015) Per cardiology note: "first NJ in 2002 while living in [place]. He cannot recall what hospital he went to. In 2004 to 2006 he had another myocardial infarction in [place] and underwent CABG x 2 and PCI x 2. In 2010 while being arrested, he had another myocardial infarction and went to [facility] and underwent PCI. In 2015 while incarcerated in [facility], he went to [facility] for another myocardial infarction and underwent PCI" Hyperlipidemia Inmate in correctional facility [facility] Hypertension CAD (coronary artery disease) Hx remote stents/CABG Hx of glaucoma Surgical History History of bilateral cataract extraction History of right hip replacement History of cardiac cath Multiple, most recent 08/2021 ([place]) History of coronary artery bypass graft ~2004 History of heart artery stent 2002 x 4 STENTS History of open reduction and internal fixation (ORIF) procedure LE Family History Other Family history unknown Social History Smoking Status: Never smoker Second Hand Exposure: No; Do You Dip or Chew Tobacco: No; Tobacco Cessation Education Requested by Patient: No Hx Alcohol Use: No Hx Substance Use: No Preferred Language: Palestinian Communication Ability: Effective Center Special[employer] Required: No Beliefs That Will Affect Care: None Current Living Situation: Other Current Living Situation Comment: [facility] Other Information That Helps Us Care for You: No Feels Safe at Home: Yes Safety Concerns: Feels Safe At This Time Assistive Devices: None Review of Systems Review of Systems: All systems reviewed & are unremarkable except as noted in HPI & below Physical Exam Constitutional: WD/WN, vitals as above ENMT: external ear and nose normal, oropharynx normal Respiratory: normal respiratory effort, lungs clear to auscultation Cardiovascular: RRR, no murmur, no edema Gastrointestinal (Abdomen): normal bowel sounds, soft, nontender, no hepatosplenomegaly Skin: no rashes, warm and dry Neurologic: moves all extremities and awake; not confused Psychiatric: A+Ox3, euthymic affect Results & Data Results & Data Vital Signs (Past 12 Hours) Vital Signs Temp Pulse Pulse Resp BP BP Pulse Ox 03/22/24 11:01 55 L 16 124/87 97 03/22/24 10:30 57 L 16 115/69 96 03/22/24 10:15 57 L 19 106/68 97 03/22/24 10:00 58 L 18 106/68 98 03/22/24 10:00 57 L 03/22/24 09:47 60 20 98 03/22/24 09:47 60 20 157/87 H 98 03/22/24 09:47 03/22/24 09:47 36.7 C 60 20 157/87 H 98 O2 Del Method 03/22/24 11:01 Room Air 03/22/24 10:30 03/22/24 10:15 03/22/24 10:00 Room Air 03/22/24 10:00 03/22/24 09:47 Room Air 03/22/24 09:47 Room Air 03/22/24 09:47 Room Air 03/22/24 09:47 Room Air Laboratory Results Abnormal lab results 03/22/24 Range/Units 09:55 WBC 3.70 L (4.8-10.8) K/ul RDW Std Deviation 49.4 H (36.4-46.3) fL RDW Coeff of Ifeanyi 14.8 H (11.5-14.5) % Plt Count 86 L (130-400) K/uL Immature Gran # (Auto) 0.00 L (0.01-0.20) K/uL BUN/Creatinine Ratio 9.9 L (10-20) B-Natriuretic Peptide 579 H (0-100) pg/ml Diagnostic Findings XR chest 1V portable CLINICAL HISTORY: Chest pain, nonspecific COMPARISON STUDY: Chest radiograph June 17, 2022. FINDINGS: There is no pneumothorax. No definite pleural effusions. Moderate cardiomegaly is unchanged. Pulmonary vascular congestion is similar to prior exam. There is mild left basilar opacity. IMPRESSION: 1. Cardiomegaly with pulmonary vascular congestion. 2. Mild left basilar opacity. Atelectasis is favored although pneumonia could appear similar. Radiographic follow-up is recommended. Medications Administered ER Medications Given: None ECG Rate (beats per minute): 60 Rhythm: normal sinus Findings: + ST elevation (anterior without reciprocal changes) Comparison ECG Date: from (Jun 17, 2022) Change: the following changes noted (ST elevations are new) Code Status & VTE Plan Code Status Full VTE Prophylaxis Plan VTE Prophylaxis will be ordered: Yes PG Care Time/CCT Total # of Minutes Spent Total Time Spent with Patient: Total time spent is greater than 50% in coordination of care (as documented) at patient's floor/unit and/or counseling patient: Coding Level of Care Code 52312 INT INP/OBS CARE 3/75MIN Diagnoses Chest pain, rule out acute myocardial infarction R07.9 CAD (coronary artery disease) I25.10 GERD (gastroesophageal reflux disease) K21.9 Asthma J45.909 Lupus M32.9
[2024-03-22] MEDS: ASPIRIN 81 MG CHEW PO STA (12:51)
[2024-03-22] MEDS: NITROGLYCERIN SL 0.4 MG/TAB TAB SL STA (12:51)
[2024-03-22 12:52] LABS: Partial Thromboplastin Ratio 0.9; Partial Thromboplastin Time 24 Seconds (21-31)
--- NOTE | 2024-03-22 12:56 | Electrocardiogram Report ---
Test Reason : Blood Pressure : */* mmHG Vent. 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
[2024-03-22 13:03] LABS: Magnesium 1.9 mg/dl (1.7-2.4)
[2024-03-22] MEDS: HEPARIN SOD (PORCINE) 1000 UNIT/ML IV ONE (13:36)
[2024-03-22] MEDS: HEPARIN SODIUM/DEXTROSE 25,000 UNITS/500 ML BAG IV SCH (13:36)
[2024-03-22] MEDS: Heparin IV Adult Wt-Based Low-Dose w/ INITIAL Bolus Protocol IV STA (13:36)
--- NOTE | 2024-03-22 13:58 | XCELERA ---
[id number]
--- NOTE | 2024-03-22 15:15 | Cardiology Consultation ---
Date of Consultation March 22, 2024 Assessment & Plan (1) Chest pain, rule out acute myocardial infarction: First 2 troponins are negative. He does not have ischemic EKG changes and his echo is without new wall motion abnormality. Also, his chest discomfort is very nonanginal in description. I would obtain a third troponin 6 hours after the last troponin and if there is no significant increase then it is unlikely this represents ACS. Agree with the heparin drip in the interim. If he develops ischemic EKG changes or the troponin becomes significantly elevated then cardiac catheter cessation will be indicated at that time. In the meantime, guideline directed medical therapy with aspirin 81 mg daily, Plavix 75 mg daily, isosorbide mononitrate 90 mg daily, rosuvastatin 40 mg daily, and metoprolol to tartrate 50 mg p.o. twice daily should be continued. He also takes ranolazine 500 mg twice daily for anginal relief. Additional noncardiac etiologies which may be contributing to his chest discomfort include his lupus/chronic inflammatory disease, possible pneumonia based on chest x-ray (seems unlikely), or even GI although this also seems unlikely. (2) Atherogenic dyslipidemia: Patient is high risk. High intensity statin therapy ongoing with rosuvastatin. No changes. (3) Benign essential hypertension: Blood pressure is adequately controlled on current regimen. Continue amlodipine 2.5 mg daily, isosorbide mononitrate 90 mg daily, hydralazine 10 mg twice daily and metoprolol to tartrate 50 mg p.o. twice daily. (4) Cardiomyopathy: EF on current echo appears to be 50 to 55% which is low normal. He had an outside echo stating EF of 40% but I do not have that study to review the images. Not sure if that use Definity. In any case, his chest x-ray and physical exam are suggestive of mild fluid overload. Diuresis with a loop diuretic is recommended (Lasix 20 mg IV should be enough). He does not usually require a loop diuretic. He does take chronic regimen including Farxiga 10 mg daily, hydralazine 10 mg p.o. twice daily in combination with isosorbide mononitrate 90 mg daily, and metoprolol to tartrate 50 mg p.o. twice daily. Plan Exclude myocardial ischemia with troponins. Proceed as indicated above based on results. We will follow tomorrow if he remains in the hospital. Dr. Escamilla and Dr. Frye are covering the general and interventional cardiology services respectively. History of Present Illness Reason for Consultation: Chest pain History of coronary disease History of Present Illness 63-year-old prisoner with a history of severe coronary disease with prior NJ, prior stenting, and single-vessel HUGHES to LAD bypass. Last catheterization was in June 2022 at which time he had stent thrombosis in the circumflex which was treated at this facility. He also has a history of ischemic cardiomyopathy, aortic stenosis, aortic insufficiency, and mitral regurgitation. He has been seen in the [facility] physician group cardiology office by Dr. Frye for his chronic venous insufficiency. Patient presents today with chest discomfort. Patient describes squeezing of his heart lasting a few seconds at a time. It is out towards the left axilla. It is not sharp. He says it is not like his prior chest pain. He is not short of breath. He denies syncope, near syncope, orthopnea, PND, racing heartbeat, palpitations, or edema. He is relatively sedentary. He also denies fever or chills. EKG from today (see official report for details). This is similar to prior EKG. There are ST elevations in the anterior precordial leads and deep Q waves. These are similar to prior EKGs except the ST elevation is slightly greater today. There are no reciprocal ischemic EKG changes and the watch dial printer of the EKG felt that the difference between EKG is less likely a lead placement difference. Cardiac catheterization from June 2022: Left main trunk-normal LAD-ostial 100% chronic total occlusion LCx-proximal stent patent, mid stent patent, distal stent occluded with thrombus (successful PCI to the segment performed) RCA-ostial 100% chronic total occlusion HUGHES to LAD-widely patent. Distal LAD with mild disease. Retrograde filling to the mid segment where there is a 99% stenosis. Echocardiogram from today: Low normal EF 50 to 55%. Segmental wall motion abnormalities consistent with prior circumflex/RCA territory infarction. The remainder of the wall motion is normal including the apex. Normal RV function Mild left atrial enlargement Mild to moderate mitral regurgitation Mild to moderate aortic stenosis with at least mild aortic insufficiency Mild tricuspid regurgitation Trace pulmonic regurgitation Note: These findings are similar to prior echo performed at this institution. Allergies Allergy/AdvReac Type Severity Reaction Status Date / Time losartan [From Cozaar] Allergy Unknown Unknown Verified 07/18/23 09:59 sulfamethoxazole Allergy Unknown Unknown Verified 07/18/23 09:59 [From Bactrim] trimethoprim [From Bactrim] Allergy Unknown Unknown Verified 07/18/23 09:59 Home Medications Medication Instructions Recorded Confirmed Type rosuvastatin 40 mg tablet 40 mg PO HS 03/21/18 03/22/24 History nitroglycerin 0.4 mg sublingual 0.4 mg sublingual Q5M PRN chest 12/10/18 03/22/24 History tablet pain ranolazine 500 mg tablet,extended 500 mg PO BID #60 tabs 12/10/18 03/22/24 History release,12 hr metoprolol tartrate 50 mg tablet 50 mg PO BID 12/20/18 03/22/24 History ciclesonide 80 mcg/actuation 1 puff inhalation BID 03/10/21 03/22/24 History aerosol inhaler (Alvesco) tamsulosin 0.4 mg capsule (Flomax) 0.4 mg PO QAM 03/10/21 03/22/24 History isosorbide mononitrate 30 mg 30 mg PO QAM 06/03/21 03/22/24 History tablet,extended release 24 hr isosorbide mononitrate 60 mg 60 mg PO QAM 06/03/21 03/22/24 History tablet,extended release 24 hr albuterol sulfate 90 mcg/actuation 2 puff inhalation QID PRN 09/01/21 03/22/24 History aerosol inhaler Shortness Of Breath amlodipine 2.5 mg tablet 2.5 mg PO QAM 09/01/21 03/22/24 History lactulose 10 gram/15 mL oral 15 ml PO BID 02/02/22 03/22/24 History solution tetrahydrozoline 0.05 % eye drops 1 drp ophthalmic (eye) BID 02/02/22 03/22/24 History (Visine) hydroxychloroquine 200 mg tablet 200 mg PO BID 02/25/22 03/22/24 History aspirin 81 mg tablet,delayed 81 mg PO QAM #30 tabs 06/20/22 03/22/24 Rx release acitretin 10 mg capsule 10 mg PO DAILY 04/10/23 03/22/24 History clopidogrel 75 mg tablet 75 mg PO DAILY 04/10/23 03/22/24 History pantoprazole 20 mg tablet,delayed 20 mg PO DAILY 04/10/23 03/22/24 History release colchicine 0.6 mg capsule 0.6 mg PO DAILY 03/22/24 03/22/24 History dapagliflozin propanediol 10 mg 10 mg PO DAILY 03/22/24 03/22/24 History tablet (Farxiga) hydralazine 10 mg tablet 10 mg PO BID 03/22/24 03/22/24 History Patient History Medical History Osteoarthritis Myocardial Infarction multiple (2002/2004?/2010/2015) Per cardiology note: "first NJ in 2002 while living in [place]. He cannot recall what hospital he went to. In 2004 to 2006 he had another myocardial infarction in [place] and underwent CABG x 2 and PCI x 2. In 2010 while being arrested, he had another myocardial infarction and went to [facility] and underwent PCI. In 2015 while incarcerated in [facility], he went to [facility] for another myocardial infarction and underwent PCI" Hyperlipidemia Inmate in correctional facility [facility] Hypertension CAD (coronary artery disease) Hx remote stents/CABG Hx of glaucoma Surgical History History of bilateral cataract extraction History of right hip replacement History of cardiac cath Multiple, most recent 08/2021 ([place]) History of coronary artery bypass graft ~2004 History of heart artery stent 2002 x 4 STENTS History of open reduction and internal fixation (ORIF) procedure LE Family History Other Family history unknown Social History Smoking Status: Never smoker Second Hand Exposure: No; Do You Dip or Chew Tobacco: No; Hx Alcohol Use: No Hx Substance Use: No Preferred Language: Somali Communication Ability: Effective Chain Puller Required: No Beliefs That Will Affect Care: None Current Living Situation: Other Current Living Situation Comment: [facility] Feels Safe at Home: Yes Assistive Devices: Cane Review of Systems Review of Systems: Negative except as per HPI Physical Exam Constitutional: Awake, alert, oriented chronically ill-appearing. No acute distress. Eyes: Extraocular muscles intact. Sclera are anicteric. ENMT: Oral mucosa is pink and moist. Neck: No JVD. Respiratory: Bibasilar crackles. No wheezing or rhonchi. Fair air movement. Cardiovascular: Regular rate and rhythm. Soft grade 2/6 systolic murmur. S4 gallop. No edema. Neurologic: Cognition intact. Speech is fluent. No focal deficits. Psychiatric: A+Ox3, euthymic affect Results & Data Vital Signs (Past 12 Hours) Vital Signs Temp Pulse Pulse Resp BP BP Pulse Ox 03/22/24 14:30 58 L 18 120/75 98 03/22/24 14:16 55 L 03/22/24 14:00 55 L 18 122/70 97 03/22/24 12:33 59 L 17 115/70 97 03/22/24 12:00 56 L 18 115/70 98 03/22/24 11:01 55 L 16 124/87 97 03/22/24 10:30 57 L 16 115/69 96 03/22/24 10:15 57 L 19 106/68 97 03/22/24 10:00 58 L 18 106/68 98 03/22/24 10:00 57 L 03/22/24 09:47 60 20 98 03/22/24 09:47 60 20 157/87 H 98 03/22/24 09:47 03/22/24 09:47 36.7 C 60 20 157/87 H 98 O2 Del Method 03/22/24 14:30 Room Air 03/22/24 14:16 03/22/24 14:00 Room Air 03/22/24 12:33 Room Air 03/22/24 12:00 Room Air 03/22/24 11:01 Room Air 03/22/24 10:30 03/22/24 10:15 03/22/24 10:00 Room Air 03/22/24 10:00 03/22/24 09:47 Room Air 03/22/24 09:47 Room Air 03/22/24 09:47 Room Air 03/22/24 09:47 Room Air PG Care Time/CCT Total # of Minutes Spent Total Time Spent: 75 Total Time Spent with Patient: Total time spent is greater than 50% in coordination of care (as documented) at patient's floor/unit and/or counseling patient: 75 minutes of noncritical care time was spent in the evaluation of the patient including physical exam, review of his current EKG, as well as review of his old [employer] imaging, follow-up outpatient records, current and prior echocardiograms, current and prior labs, formulation and implementation of a plan of care, discussion with the hospital physician, and all associated documentation. Coding Level of Care Code 17740 INT INP/OBS CARE 3/75MIN Diagnoses Chest pain, rule out acute myocardial infarction R07.9 Atherogenic dyslipidemia E78.5 Benign essential hypertension I10 Cardiomyopathy I42.9 Time Spent (min) 75 Comment
[2024-03-22] MEDS ORDERED: ACETAMINOPHEN 325 MG TAB PO PRN (15:29)
[2024-03-22] MEDS ORDERED: NITROGLYCERIN SL 0.4 MG/TAB TAB SL PRN (15:29)
[2024-03-22] MEDS ORDERED: ALBUTEROL HFA 8 GM INHALER INH PRN (16:16)
[2024-03-22] MEDS: RANOLAZINE 500 MG ER TAB PO SCH (20:15)
[2024-03-22] MEDS: HYDROXYCHLOROQUINE SULFATE 200 MG TAB PO SCH (20:15)
[2024-03-22] MEDS: hydrALAZINE 10 MG TAB PO SCH (20:15)
[2024-03-22] MEDS: ROSUVASTATIN CALCIUM 20 MG TAB PO SCH (20:15)
[2024-03-22] MEDS: METOPROLOL TARTRATE 50 MG TAB PO SCH (20:15)
[2024-03-22] MEDS: LACTULOSE SYRUP 10 GM/15 ML BTL 960 ML PO SCH (20:16)
[2024-03-23 04:00] VITALS: RESP 16
[2024-03-23 06:13] LABS: Basophils # (auto) 0.03 K/uL (0.00-0.20); Basophils % (auto) 0.7 %; Eosinophils % (auto) 2.4 %; Hematocrit (blood only) 44.5 % (42.0-52.0); Hemoglobin 15.3 g/dl (14.0-18.0); Immature Granulocytes # (auto) 0.01 K/uL (0.01-0.20); Immature Granulocytes % (auto) 0.2 %; Lymphocytes # (auto) 1.88 K/uL (1.20-3.40); Lymphocytes % (auto) 44.5 %; Mean Corpuscular Hemoglobin 30.7 pg (25.0-34.0); Mean Corpuscular Hgb Conc 34.4 g/dL (32.0-36.0); Mean Corpuscular Volume 89.2 fL (80.0-100.0); Mean Platelet Volume 12.4 fL (9.4-12.4); Monocytes # (auto) 0.68 K/uL (0.11-0.59); Monocytes % (auto) 16.1 %; Neutrophils # (auto) 1.52 K/uL (1.40-6.50); Neutrophils % (auto) 36.1 %; Platelet Count 75 K/uL (130-400); RDW Coefficient of Variation 14.6 % (11.5-14.5); RDW Standard Deviation 48.2 fL (36.4-46.3); Red Blood Count 4.99 M/uL (4.70-6.10); White Blood Count 4.22 K/ul (4.8-10.8)
[2024-03-23 07:36] LABS: BUN Creatinine Ratio 11.6 (10-20); Calcium 9.4 mg/dl (8.6-10.3); Creatinine Clr Calc Pharmacy 87.5 ml/min; Potassium 4.2 mmol/L (3.5-5.1)
[2024-03-23 07:43] LABS: Troponin I High Sensitivity 9.2 pg/ml (0-20)
[2024-03-23 08:02] VITALS: TEMP 97.9
[2024-03-23] MEDS: amLODIPine BESYLATE 5 MG TAB PO SCH (08:10)
[2024-03-23] MEDS: ASPIRIN 81 MG ECTAB PO SCH (08:10)
[2024-03-23] MEDS: TAMSULOSIN HCL 0.4 MG CAP PO SCH (08:11)
[2024-03-23] MEDS: ISOSORBIDE MONO EXTENDED REL 60 MG TABCR PO SCH (08:11)
[2024-03-23] MEDS: ISOSORBIDE MONO EXTENDED REL 30 MG TABCR PO SCH (08:11)
[2024-03-23] MEDS: PANTOprazole 40 MG TAB PO SCH (08:11)
[2024-03-23] MEDS: CLOPIDOGREL BISULFATE 75 MG TAB PO SCH (08:11)
[2024-03-23] MEDS: COLCHICINE 0.6 MG TAB PO SCH (08:11)
[2024-03-23] MEDS: FLUTICASONE FUROATE 100MCG 14 PUFFS/INHALER INH SCH (08:12)
[2024-03-23] MEDS: FUROSEMIDE INJ 20 MG/2 ML VIAL IV SCH (10:00)
--- NOTE | 2024-03-23 10:41 | Discharge Summary ---
Discharge Summary Date of Service March 23, 2024 Principal Dx & Hospital Course #1 = Principal Diagnosis (1) Chest pain, rule out acute myocardial infarction: Patient was monitored on telemetry while in [facility] with no arrhythmias noted on either telemetry or on EKG: cf., EKG (03/22/2024, 9:49am): NSR @ 60, MT 182, QTC 424, 2mm ST elevation in anterior leads V2 and V3 (as noted on 03/22/2024, 9:49am EKG #1) WITHOUT reciprocal changes (e.g., ST depressions in the inferior leads, II, III, and/or aVF). TWI in aVF and V6. (by my review). Patient also ruled out for acute NSTEMI with serial troponins all negative/normal: cf., troponin #1 8.4 pg/mL (03/22/2024, 9:55am). cf., troponin #2 6.7 pg/mL (03/22/2024, 12:03pm). cf., troponin #3 7.9 pg/mL (03/22/2024, 9:00pm). cf., troponin #4 9.2 pg/mL (03/23/2024, 6:34am). Patient also underwent TTE (03/22/2024, 12:28pm, CARDS Dr. Carlos Kelly): 1. LV EF 50-55%. Mild asymmetric LVH. Posterior and to a lesser extent, inferior myocardium is thinned and echogenic. Mild hypokinesis in this area. These findings are consistent with prior PA; they are not significantly changed from prior 02/09/2023, 2:11pm TTE (as per CARDS Dr. Karri Noonan) and 06/18/2022, 9:42am TTE (as per CARDS Dr. Carlos Kelly). Patient was maintained, nevertheless, on conventional medical management (e.g., HUMBERTO (morphine, O2, NTG, ASA 81mg PO daily), plavix 75mg PO daily, metoprolol 50mg PO bid, colchicine 0.6mg PO daily, rosuvastatin 40mg PO qhs, isosorbide mononitrate 90mg PO qam, ranolazine 500mg PO bid, and heparin infusion, as if he had been diagnosed with acute NSTEMI. Now that patient is being discharged back to [facility], patient will continue with his home-scheduled NTG 0.4mg PO q5 minutes prn chest pain (maximum of 3 tablets in 15 minutes), ASA 81mg PO daily, plavix 75mg PO daily, metoprolol 50mg PO bid, colchicine 0.6mg PO daily, rosuvastatin 40mg PO qhs, and ranolazine 500mg PO bid on discharge date 03/23/2024. (2) CAD (coronary artery disease): CAD, s/p stents. Patient received secondary prophylaxis against CAD utilizing his home-scheduled ASA 81mg PO daily, plavix 75mg PO daily, metoprolol 50mg PO bid, colchicine 0.6mg PO daily, rosuvastatin 40mg PO qhs, isosorbide mononitrate 90mg PO qam, and ranolazine 500mg PO bid while in [facility]. Patient will continue all 7 home- scheduled medications on hospital discharge back to [facility] on 03/23/2024. (3) GERD (gastroesophageal reflux disease): Asymptomatic with no complaints of water brash in mouth while in [facility]. Patient received protonix 40mg PO daily while in [facility]. Patient will resume his home- scheduled protonix 20mg PO daily on hospital discharge back to [facility] on 03/23/2024. (4) Asthma: Asymptomatic with no complaints of cough, wheeze, or SOB/SOLOMON while in [facility] in this patient with mild intermittent asthma, never intubated or mechanically ventilated. Patient did not require or receive albuterol MDI 90ug/puff, 2 puffs PO qid prn SOB/wheeze while in [facility]; patient will resume this home-scheduled medication on hospital discharge back to [facility] on 03/23/2024. In addition, patient did not require or receive his home-scheduled Alvesco (ciclesonide) 80ug/puff, 1 puff PO bid while in [facility]; patient will resume this home-scheduled medication on hospital discharge back to [facility] on 03/23/2024. (5) Lupus: Asymptomatic on home-scheduled hydroxychloroquine 200mg PO bid while in [facility]. Patient will continue this home-scheduled medication on hospital discharge back to [facility] on 03/23/2024. Plan HTN - Modestly controlled with discharge BP 157/79 (03/23/2024, 10:44am) on 2 gram Na diet, home-scheduled amlodipine 2.5mg PO qam, hospital-started lasix 20mg IV daily (dose #1/2 on 03/23/2024, 9:00am; dose #2/2 on 03/23/2024, 3:00pm as the duration of action of lasix is approximately 6 hours; cf., LAsix, long- acting six hours), home-scheduled hydralazine 10mg PO bid, isosorbide mononitrate 90mg PO qam, and home-scheduled metoprolol 50mg PO bid while in [facility]. Patient will continue with adherence to a 2 gram Na diet, home-scheduled amlodipine 2.5mg PO qam, home-scheduled hydralazine 10mg PO bid, isosorbide mononitrate 90mg PO qam, and home-scheduled metoprolol 50mg PO bid on hospital discharge back to [facility] on 03/23/2024. Patient will NOT continue with hospital -started lasix 20mg IV daily (dose #1/2 on 03/23/2024, 9:00am; dose #2/2 on 03/23/2024, 3:00pm as the duration of action of lasix is approximately 6 hours; cf., LAsix, long-acting six hours) on hospital discharge back to [facility] on 03/23/2024; patient will also NOT start with lasix 20mg PO daily on hospital discharge back to [facility] on 03/23/2024. Chronic LV systolic CHF with decreased LV EF 40% (as noted on 02/12/2023, 2:11pm TTE, CARDS Dr. Karri Noonan) and chronic diastolic CHF [(as noted on 02/12/2023, 2:11pm TTE, CARDS Dr. Karri Noonan) with LV filling pressure elevated as noted by an elevated LV end-diastolic volume of 201.0 mL (cf., normal LV end-diastolic volume of 62-160 mL)]. Patient's LV EF has subsequently increased to 50-55% (as noted on 03/22/2024, 12:28pm TTE, CARDS Dr. Carlos Kelly); Dr. Kelly also notes that clinically patient appears to be slightly fluid overloaded and which is affirmed by 03/22/2024, 9:47am portable CXR, which demonstrates cardiomegaly with pulmonary vascular congestion. Hence, patient received hospital-started lasix 20mg IV daily (dose #1/2 on 03/23/2024, 9:00am; dose #2/2 on 03/23/2024, 3:00pm as the duration of action of lasix is appro ximately 6 hours; cf., LAsix, long-acting six hours) to effect gentle diuresis of patient while patient remained in [facility]. Patient will not continue with lasix IV or lasix PO, however, on hospital discharge back to [facility] on 03/23/2024 given the mildness of patient's acute exacerbation of chronic LV systolic CHF with decreased LV EF 40% (as noted on 02/12/2023, 2:11pm TTE, CARDS Dr. Karri Noonan), and more importantly, given the finding of mild-moderate valvular aortic stenosis, which can also cause angina, and which is also pre-load dependent, and hence, judicious administration of diuretic(s) is needed to maintain antegrade flow across a stenotic aortic valve at all times of the day and night, whether patient is in [facility] or in [facility]. VTE Prophylaxis - Patient did not receive pharmacologic DVT prophylaxis with heparin 5000 units SQ q8 or q12 as patient received therapeutic anticoagulation utilizing heparin infusion while in [facility]. Patient had no complaints of calf pain, leg swelling, or pleurisy to suggest either DVT or PE while in [facility]. Discharge time, 35 minutes. Of this time period, 17 minutes were spent in coordinating patient's discharge. Admission HPI Per Admitting Provider Bartolo Roy is a 63 years old -[place] male with a past medical history of severe coronary artery disease, s/p stents, HTN, chronic LV systolic CHF with decreased LV EF 40% (as noted on 02/12/2023, 2:11pm TTE, CARDS Dr. Karri Noonan) and chronic diastolic CHF [(as noted on 02/12/2023, 2:11pm TTE, CARDS Dr. Karri Noonan) with LV filling pressure elevated as noted by an elevated LV end-diastolic volume of 201.0 mL (cf., normal LV end-diastolic volume of 62-160 mL)], chronic SLE, GERD, and BPH, who presented to [facility] with intermittent chest pain. Patient conceded that his intermittent chest pain felt different from his prior heart attack chest pain. "Intermittent. Started this morning. Didn't go anywhere. Stayed in the middle." Substernal pressure. No associated shortness of breath, nausea or diaphoresis. No improvement with nitroglycerin. EKG from [facility] was concerning for "septal infarct"; patient was subsequently sent to [facility] ER for further evaluation. EKG here concerning for ST elevations in the anterior leads which appears new since last EKG but has been present on prior EKGs with no reciprocal changes. EKG discussed with Dr Kelly and planning on IV heparin, stat TTE and repeat troponin (initial was normal) prior to decision regarding cardiac catheterization. Discharge Exam General: comfortable, coherent, cooperative. Wide awake and alert. Not confused, lethargic, or obtunded. Patient speaks in complete, fluent, and articulate sentences without pause, interruption, cough, or wheeze. HEENT: normocephalic, atraumatic. EOMI, PERRL. No nystagmus, gaze paresis, anisocoria, miosis, mydriasis, hyphema, chemosis, scleral icterus, conjunctivitis, or pterygium. No otorrorhea. No rhinorrhea. No pharyngeal discharge or exudate. Neck: suppler, no stridor, bruit, goiter, JVD, or HJR. Lymph: no cervical, supraclavicular, infraclavicular, axillary, epitrochlear, or inguinal adenopathy. Chest: symmetric rise and fall with respiration. Non-tender to palpation. Lungs: clear to auscultation and percussion. No audible expiratory wheeze, egophony, pectoriloquy, increase in tactile fremitus, or flatness/dullness to percussion at the bases. Heart: RRR, S1 and S2 noted. No S3 or S4 summation gallop. No tripartite friction rub. Grade II/ early systolic murmur @ LLSB, not radiating to the carotids, the axilla, or back. Invariant in regards to the respiratory cycle. Abdomen: soft, non-tender, non-distended. No rebound, guarding, Kelly's sign, or organomegaly. Bowel sounds auscultated in all 4 quadrants. Extremities: no clubbing, cyanosis, or edema. 2+ pedal pulses bilaterally. Skin: no decubitus ulcer, exanthem, or enanthem. Neurology: alert and oriented in regards to person, place, and time. DTR+ and symmetric. 5/5 motor strength in all 4 extremities, both proximally and distally. No tremors, tics, or myoclonus. Urology: no ramirez catheter. No urethral discharge. Discharge Plan Discharge Items [facility] Reason For Visit: CHEST PAIN RULE OUT PA Discharge Diagnosis: Chest pain, s/p R/O acute PA Activity: Resume your previous activity Non-emergency contact: Primary Care Provider Call non-emergency contact if: you have any medication questions Follow-up/Referrals: Yared WYNN [Primary Care Provider] - Diet: Heart Healthy, Low Fat and Low Sodium (2gm) Addtl Attending Provider Instructions: Go to [facility] for any health concerns or questions. Pending Studies at Discharge: No Skilled Items Patient informed of condition?: Yes DNR: No Discharge Level of Care: Other Communicable Disease: No Discharge Prognosis: Stable Lines: None Urinary Catheter: No Medications and DC Order Prescriptions: Continued tetrahydrozoline [Visine] 0.05 % drops 1 drp ophthalmic (eye) BID lactulose 10 gram/15 mL solution 15 ml PO BID ranolazine 500 mg tablet extended release 12 hr 500 mg PO BID Qty: 60 metoprolol tartrate 50 mg tablet 50 mg PO BID Patient Comments: 50 mg PO ; clopidogrel 75 mg tablet 75 mg PO DAILY acitretin 10 mg capsule 10 mg PO DAILY pantoprazole 20 mg tablet,delayed release (DR/EC) 20 mg PO DAILY rosuvastatin 40 mg Tablet 40 mg PO HS nitroglycerin 0.4 mg tablet, sublingual 0.4 mg sublingual Q5M PRN (Reason: chest pain) Patient Comments: PLACE ONE TABLET UNDER TONGUE EVERY 5 MINUTES FOR UP TO 3 DOSES IF NEEDED FOR CHEST PAIN. tamsulosin [Flomax] 0.4 mg Capsule 0.4 mg PO QAM Alvesco 80 mcg/actuation Hfa Aerosol Inhaler 1 puff INHALATION BID isosorbide mononitrate 30 mg Tablet Extended Release 24 Hr 30 mg PO QAM isosorbide mononitrate 60 mg Tablet Extended Release 24 Hr 60 mg PO QAM amlodipine 2.5 mg Tablet 2.5 mg PO QAM albuterol sulfate 90 mcg/actuation Hfa Aerosol Inhaler 2 puff INHALATION QID PRN (Reason: Shortness Of Breath) hydroxychloroquine 200 mg Tablet 200 mg PO BID aspirin 81 mg Tablet,Delayed Release (Dr/Ec) 81 mg PO QAM Qty: 30 0RF hydralazine 10 mg Tablet 10 mg PO BID dapagliflozin propanediol [Farxiga] 10 mg Tablet 10 mg PO DAILY colchicine 0.6 mg Capsule 0.6 mg PO DAILY Admission Data Admit Date/Time: 03/22/24 13:34 Attending Provider: Juan J Cardoso Admit Provider: Vince Wray Primary Care Provider: Yared WYNN Other Providers: Vince Wray; Carlos Kelly Hospital Stay Data Consultations 03/22/24 11:55 ED Decision to Admit Stat 03/22/24 12:20 Consult Cardiology Stat Pending Results Patient Have Any Pending Studies at Discharge: No Discharge Instructions Given to Patient (Per Discharging Provider) Go to [facility] for any health concerns or questions. Total Time Total Time Spent Total Time Spent (In Minutes): Discharge time, 35 minutes. Of this time period, 17 minutes were spent in coordinating patient's discharge. Coding Level of Care Code 66780 INP/OBS DISCH >30 MIN Diagnoses Chest pain, rule out acute myocardial infarction R07.9 CAD (coronary artery disease) I25.10 GERD (gastroesophageal reflux disease) K21.9 Asthma J45.909 Lupus M32.9
[2024-03-23 11:28] VITALS: BP 146/73; PULSE 64; O2SAT 98
== END 2024-03-23 12:10 ==
LOC: ED 09:42 → 4W 09:42 → SUATTDRO 13:34 → 4W 14:51